=== PATIENT | female | born 1935 | race Caucasian/White ===

== ENCOUNTER 2016-08-10 09:08 | Inpatient (IN) ==
[2016-08-10] MEDS ORDERED: Ipratropium/Albuterol Neb 3 ML IH ONE ×2 (09:32→10:57)
--- NOTE | 2016-08-10 09:34 | Emergency Department Note ---
Disposition Clinical Impression: Radiation pneumonitis Lung cancer, upper lobe Qualifiers: Laterality: right Qualified Code(s): C34.11 - Malignant neoplasm of upper lobe , right bronchus or lung Dyspnea Qualifiers: Dyspnea type: unspecified Qualified Code(s): R06.00 - Dyspnea, unspecified Anemia Qualifiers: Anemia type: unspecified type Qualified Code(s): D64.9 - Anemia, unspecified Disposition: Admitted As Inpatient Condition: Good Time of Disposition: 13:03 SOB HPI - General Chief Complaint: ED Shortness of Breath/Dyspnea Stated Complaint: JOSHUA Time Seen by Provider: 08/10/16 09:24 Source: patient Mode of arrival: wheelchair Limitations: no limitations Nursing Notes Reviewed: Yes Vital Signs Reviewed: Yes - History of Present Illness 80-year-old female's past medical history of breast cancer status post right mastectomy, lung cancer status post radiation treatment, and hypertension presents to the ED for difficulty in breathing. This has been ongoing for the past 3 days. She was seen and evaluated by her oncologists today and was sent here. Patient follows up every week and reports this was the worse she has been and "becoming out of control." She is not on any home oxygen supplementation. She is currently 94% on room air. Worse with exertion but dyspneic with normal activity. She missed a productive cough. Patient follows with Dr. Keller and Dr. Edmond. Last radiation dose in February. Since then she has been battling several episodes of pneumonia. She just finished a Zpak last week. She reports being over radiated. She has also been tapering down on her steroids possibly from a pneumonitis. Also reports blood transfusion 2 weeks ago. She denies any associated fever, chest pain, nausea, vomiting. Denies any bloody stools, black tarry stools, or abdominal pain. Denies any history of blood clots. Denies any recent surgeries, hospitalizations, long distance travel. Pt Subjective Complaint: shortness of breath Onset (ago): day(s) - Related Data Home Medications Medication Instructions Recorded Confirmed Losartan Potassium [Cozaar] 50 mg PO DAILY 11/16/15 08/10/16 Amlodipine [Norvasc] 5 mg PO QPM 04/20/16 08/10/16 Omeprazole [PriLOSEC] 40 mg PO DAILY 04/20/16 08/10/16 Propranolol LA (24 HR) [Inderal LA] 80 mg PO DAILY 04/20/16 08/10/16 Ferrous Sulfate [Iron] 325 mg PO TID 08/10/16 08/10/16 Pantoprazole Sodium [Protonix] 40 mg PO DAILY 08/10/16 08/10/16 PredniSONE [Deltasone] 20 mg PO BID 08/10/16 08/10/16 Previous Rx's Medication Instructions Recorded Sucralfate [Carafate] 1 gm PO QIDAC #120 tablet 03/07/16 Albuterol Sulfate [Albuterol 2 puff IH BID PRN #1 hfa.aer.ad 07/03/16 Inhaler] Citalopram [CeleXA] 20 mg PO DAILY #30 tablet 07/10/16 Guaifenesin/Codeine Phosphate 5 - 10 ml PO QID PRN #473 ml 07/10/16 [Guaifenesin-Codeine Syrup] LORazepam [Ativan] 1 mg PO TID PRN #90 tablet 07/10/16 Azithromycin [Azithromycin 6-Tab 250 mg PO PER PKG DI #6 tab 08/01/16 Pack] Folic Acid 1 mg PO DAILY #30 tablet 08/03/16 Allergies Allergy/AdvReac Type Severity Reaction Status Date / Time bupropion [From Wellbutrin] Allergy Hives Verified 05/15/16 08:54 Hydromorphone [From Dilaudid] Allergy Hives Verified 05/15/16 08:54 Penicillins Allergy Hives Verified 05/15/16 08:54 phenytoin [From Dilantin] Allergy Unresponsiv Verified 05/15/16 08:54 e acetaminophen [From Percocet] AdvReac Hallucinati Verified 05/15/16 08:54 ng Oxycodone [From Percocet] AdvReac Hallucinati Verified 05/15/16 08:54 ng All systems ED: reviewed and negative except as stated. Constitutional: Denies: fever, chills Cardiovascular: Reports: dyspnea on exertion. Denies: chest pain, palpitations Respiratory: Reports: cough, dyspnea, sputum production Gastrointestinal: Denies: abdominal pain, nausea, vomiting, diarrhea Genitourinary: Denies: urgency, dysuria Musculoskeletal: Denies: back pain Integumentary: Denies: rash Psychiatric: Reports: anxiety Past Medical History - Past Medical History Attestation: Yes The following information was validated with the patient. Source: patient Medical history: Reports: cancer, hypertension, migraine, other Surgical history: Reports: cancer surgery, cholecystectomy, hysterectomy, orthopedic, other Psychiatric history: Reports: anxiety, depression - Social History Smoking Status: Never smoker Smokeless Tobacco Status: No Alcohol use: Reports: none Drug use: Reports: none Physical Exam - General Limitations: no limitations General appearance: alert, anxious, in distress - Head Head exam: atraumatic, normocephalic, normal inspection - Eye Eye exam: Present: normal appearance, PERRL, EOMI - ENT ENT exam: normal exam, normal oropharynx, mucous membranes moist - Neck Neck exam: Present: normal inspection, full ROM, trachea midline - Chest Chest inspection: Present: symmetric chest wall rise, other (right mastectomy) - Respiratory Respiratory exam: Present: normal lung sounds bilaterally, respiratory distress , wheezes - Expanded Respiratory Exam Location: wheezes: Left, rhonchi: Left, decreased breath sounds: Right (Right mastectomy) - Cardiovascular Cardiovascular exam: Present: regular rate, normal rhythm, normal heart sounds - Abdominal Exam Abdominal exam: Present: soft, Non-Tender, normal bowel sounds. 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 Absent: black stool, bloody stool, hemorrhoids - Extremities Exam Extremities exam: Present: normal inspection, full ROM, normal capillary refill. Absent: tenderness, pedal edema, calf tenderness - Neurological Exam Neurological exam: Present: alert, oriented X3 - Psychiatric Psychiatric exam: Present: normal affect, anxious - Skin Skin exam: Present: warm, dry, intact, normal color Course Course Narrative: 80-year-old female with a history of cancer presents with increased difficulty breathing. This is been ongoing for the past 30 days. She denies any recent fevers or chills. She did have her influenza vaccine this year. Last radiation treatment in February. States she is been battling pneumonia over the past few months and tapering down on steroids for likely pneumonitis it sounds like. She is 94% on room air. Very tachypneic with conversational dyspnea. Heart's regular rate and rhythm. She has a right mastectomy. Diminished sounds on the right with diffuse wheezing and crackles. Legs are non -edematous without any calf tenderness. [place] chest x-ray, basic labs, troponin, BMP. It has been over 6 months of active cancer she is considered low risk per [place] will check d-dimer. Last CTA one month ago was negative for PE. Duonebs ordered. - Reevaluation(s) Reevaluation #1: Hgb 7.9 dropped from 9.7. Type and screen ordered. WBC is normal. Stool hemoccult sent to lab. No gross blood on rectal exam. D-dimer came back positive >1000 will order fluid bolus and CTA for PE. Troponin negative. EKG is nonischemic. Time: 12:50 Reevaluation #2: CTA negative for PE. CXR and CTA showed some increase opacity in the right upper lobe. WBC is normal at 10. Will plan to admit. Discussed with Hospitalist on starting antibiotics, will not start at this time. Impression is dyspnea, lung cancer, history of breast cancer, anemia, respiratory distress, radiation pneumonitis. Time: 13:02 - Consultations Consultation #1: Spoke with Dr. Keller, rad oncologist, acutely worse over the past 3-4 days, now having increasing dyspnea at rest. Radiation pneumonitis likely but unsure. CXR appears worse than in past. Consideration for possible pneumonia superimposed on the pneumonitis. Off and on dual antibiotics and steroids the past several weeks. Time: 11:44 Consultation #2: Spoke to Dr. hSort, hospitalist, ok to admit for respiratory distress, anemia , JOSHUA Time: 13:01 Vital Signs Temperature 97.9 F 08/10/16 09:12 Pulse Rate 87 08/10/16 09:12 Respiratory Rate 25 08/10/16 09:12 Blood Pressure 171/78 08/10/16 09:12 O2 Sat by Pulse Oximetry 95 08/10/16 09:12 Temperature 97.5 F L 08/10/16 15:26 Pulse Rate 81 08/10/16 15:26 Respiratory Rate 20 08/10/16 15:26 Blood Pressure 148/76 08/10/16 15:26 O2 Sat by Pulse Oximetry 95 08/10/16 15:26 Oxygen Delivery Oxygen Delivery Room Air Shortness of Breath/Dyspnea - Medical Records Medical records reviewed: Yes I reviewed the patient's medical records. - Lab Data Lab results reviewed: Yes I reviewed the patient's lab results. Result diagrams: 08/10/16 09:40 08/10/16 09:40 Lab Results 08/10/16 08/10/16 08/10/16 Range/Units 09:40 09:40 09:40 WBC 10.1 (4.3-11.1) K/mcL RBC 3.14 L (3.82-4.97) M/mcL Hgb 7.9 L (11.5-15.4) g/dL Hct 25.6 L (35.3-44.9) % MCV 81.5 L (83.0-100.0) fL MCH 25.2 L (28.0-33.3) pg MCHC 30.9 L (31.6-35.5) g/dL RDW 17.6 H (11.5-14.5) % Plt Count 263 (140-400) K/mcL MPV 8.6 L (9.4-12.4) fL Immature Gran % 1.1 (0-4) % Seg Neutrophils % 88.1 % Lymphocytes % 5.5 % Monocytes % 5.0 % Eosinophils % 0.2 % Basophils % 0.1 % Neutrophils # 8.9 (1.6-8.9) K/mcL Lymphocytes # 0.6 (0.6-4.6) K/mcL Monocytes # 0.5 (0.0-1.3) K/mcL Eosinophils # 0.0 (0.0-0.6) K/mcL Basophils # 0.0 (0.0-0.2) K/mcL D-Dimer (0-500) ng/mLFEU Sodium 136 (136-145) mEq/L Potassium 4.0 (3.5-4.5) mEq/L Chloride 101 (98-109) mEq/L Carbon Dioxide 29 (19-29) mEq/L BUN 26 H (7-20) mg/dL Creatinine 0.80 (0.57-1.11) mg/dL Est GFR ( Amer) > 60 (> 60) Est GFR (Non-Af Amer) > 60 (> 60) BUN/Creatinine Ratio 33 H (6-26) Glucose 90 (70-99) mg/dL Calculated Osmolality 286 (280-300) Calcium 8.6 (8.6-10.8) mg/dL Troponin I (0-0.03) ng/mL B-Natriuretic Peptide 116 H (0-100) pg/mL Stool Occult Blood (Negative) Blood Type Antibody Screen 08/10/16 08/10/16 08/10/16 Range/Units 09:40 09:40 11:37 WBC (4.3-11.1) K/mcL RBC (3.82-4.97) M/mcL Hgb (11.5-15.4) g/dL Hct (35.3-44.9) % MCV (83.0-100.0) fL MCH (28.0-33.3) pg MCHC (31.6-35.5) g/dL RDW (11.5-14.5) % Plt Count (140-400) K/mcL MPV (9.4-12.4) fL Immature Gran % (0-4) % Seg Neutrophils % % Lymphocytes % % Monocytes % % Eosinophils % % Basophils % % Neutrophils # (1.6-8.9) K/mcL Lymphocytes # (0.6-4.6) K/mcL Monocytes # (0.0-1.3) K/mcL Eosinophils # (0.0-0.6) K/mcL Basophils # (0.0-0.2) K/mcL D-Dimer 1379 H (0-500) ng/mLFEU Sodium (136-145) mEq/L Potassium (3.5-4.5) mEq/L Chloride (98-109) mEq/L Carbon Dioxide (19-29) mEq/L BUN (7-20) mg/dL Creatinine (0.57-1.11) mg/dL Est GFR ( Amer) (> 60) Est GFR (Non-Af Amer) (> 60) BUN/Creatinine Ratio (6-26) Glucose (70-99) mg/dL Calculated Osmolality (280-300) Calcium (8.6-10.8) mg/dL Troponin I 0.01 (0-0.03) ng/mL B-Natriuretic Peptide (0-100) pg/mL Stool Occult Blood (Negative) Blood Type A POSITIVE Antibody Screen NEGATIVE 08/10/16 Range/Units 12:17 WBC (4.3-11.1) K/mcL RBC (3.82-4.97) M/mcL Hgb (11.5-15.4) g/dL Hct (35.3-44.9) % MCV (83.0-100.0) fL MCH (28.0-33.3) pg MCHC (31.6-35.5) g/dL RDW (11.5-14.5) % Plt Count (140-400) K/mcL MPV (9.4-12.4) fL Immature Gran % (0-4) % Seg Neutrophils % % Lymphocytes % % Monocytes % % Eosinophils % % Basophils % % Neutrophils # (1.6-8.9) K/mcL Lymphocytes # (0.6-4.6) K/mcL Monocytes # (0.0-1.3) K/mcL Eosinophils # (0.0-0.6) K/mcL Basophils # (0.0-0.2) K/mcL D-Dimer (0-500) ng/mLFEU Sodium (136-145) mEq/L Potassium (3.5-4.5) mEq/L Chloride (98-109) mEq/L Carbon Dioxide (19-29) mEq/L BUN (7-20) mg/dL Creatinine (0.57-1.11) mg/dL Est GFR ( Amer) (> 60) Est GFR (Non-Af Amer) (> 60) BUN/Creatinine Ratio (6-26) Glucose (70-99) mg/dL Calculated Osmolality (280-300) Calcium (8.6-10.8) mg/dL Troponin I (0-0.03) ng/mL B-Natriuretic Peptide (0-100) pg/mL Stool Occult Blood Positive A (Negative) Blood Type Antibody Screen - Radiology Data Radiology results reviewed: Yes I reviewed the patient's radiology results. Chest X-Ray 08/10/16 09:28 IMPRESSION: Slightly increased right upper lobe airspace disease over the past few weeks. D/ / David Khan MD / David Khan MD Interpreting Provider: David Khan MD Chest CTA 08/10/16 10:22 IMPRESSION: No evidence of pulmonary embolism or acute pulmonary abnormality. Decreased right pleural effusion and persistent right upper lobe infiltrate. Recommend follow-up CT scan of the chest once the patient's acute symptoms have resolved. Evaluation for residual malignancy is limited given the extensive consolidation. Recommend treating the patient with continued follow-up D/ / Oliver Arroyo MD / Oliver Arroyo MD Interpreting Provider: Oliver Arroyo MD - EKG Data EKG attestation: Yes I reviewed and interpreted this EKG. EKG results narrative: EKG performed 03/23/1930 shows normal sinus rhythm 78 bpm left axis deviation, there are no ST elevations, no T-wave inversions, intervals are within normal limits AK interval 174 QRS 103 QT QTC through 68 401. Compared to old EKG performed 04/19/2016 shows sinus tachycardia 104 bpm with left axis deviation. No acute ischemic changes. Attestation Statement - Attestation Attestation: I examined this patient and my medical decision-making was reviewed with the G[employer] DISTRIBUTION PLANT OPERATOR/PA/Advanced Practice Nurse/Resident Physician. I agree with the documented findings, disposition and treatment plan as described except to the extent set forth below. 80-year-old female presents ED with his primary. She has a history of radiation pneumonitis secondary to treatment for breast cancer. She has been having increasing dyspnea over the past several weeks. She was sent to the ED today by her oncologist because of worsening dyspnea. She has had cough has been nonproductive. He has been no fever. She has recently been on antibiotics without improvement. Denies precordial chest pain. Does complain of worsening exertional dyspnea now limited to only a few steps at a time. No vomiting or abdominal pain. Does have mild increased swelling of her lower extremities. Pleasant elderly female, slightly tachypneic. Oropharynx clear mucous membranes dry. Neck supple. Chest with diminished breath sounds in the right lung scattered wheezes in both bases. Cardiac exam regular chest wall nontender. Abdomen soft nontender. Extremities symmetric lower extremity edema. Chest x-ray with increasing opacification of the right upper lung jensen. CT of the chest reveals the same and there is possibly mucous plugging of the airways of the right upper lobe. No PE appreciated. She was given DuoNeb treatments along with Mucomyst with very minimal improvement. She will be admitted for more evaluation and potential bronchoscopy.
[2016-08-10 09:51] LABS: Basophils % 0.1 %; Eosinophils % 0.2 %; Hematocrit 25.6 % (35.3-44.9); Hemoglobin 7.9 g/dL (11.5-15.4); Immature Granulocytes % 1.1 % (0-4); Lymphocytes # 0.6 K/mcL (0.6-4.6); Lymphocytes % 5.5 %; Mean Corpuscular HGB Conc 30.9 g/dL (31.6-35.5); Mean Corpuscular Hemoglobin 25.2 pg (28.0-33.3); Mean Corpuscular Volume 81.5 fL (83.0-100.0); Mean Platelet Volume 8.6 fL (9.4-12.4); Monocytes # 0.5 K/mcL (0.0-1.3); Neutrophils # 8.9 K/mcL (1.6-8.9); Platelet Count 263 K/mcL (140-400); Red Blood Count 3.14 M/mcL (3.82-4.97); Red Cell Distribution Width 17.6 % (11.5-14.5); Segmented Neutrophils % 88.1 %
[2016-08-10 10:02] LABS: BUN/Creatinine Ratio 33 (6-26); Blood Urea Nitrogen 26 mg/dL (7-20); Calcium 8.6 mg/dL (8.6-10.8); Carbon Dioxide 29 mEq/L (19-29); Chloride 101 mEq/L (98-109); Glucose 90 mg/dL (70-99); Osmolality,Calculated 286 (280-300); Sodium 136 mEq/L (136-145); eGFR For African Americans > 60 (> 60); eGFR For Non-African Americans > 60 (> 60)
[2016-08-10] MEDS ORDERED: 0.9 % Sodium Chloride 1,000 ML IVC ONE (10:22)
[2016-08-10] MEDS ORDERED: Acetylcysteine 10% 2 ML INHSOL IH STA (10:57)
[2016-08-10] MEDS ORDERED: Naloxone 0.4 MG/ML INJ IVP PRN (13:50)
[2016-08-10] MEDS ORDERED: Ondansetron 4 MG/2 ML VIAL IVP PRN (13:50)
[2016-08-10] MEDS ORDERED: Albuterol 2.5 MG/3 ML NEBULIZER IH PRN (13:54)
[2016-08-10] MEDS: Pantoprazole 40 MG VIAL IVP SCH (14:18)
[2016-08-10] MEDS: *HR* LORazepam 1 MG TABLET PO PRN ×2 (15:20→21:51)
[2016-08-10] MEDS: Sucralfate 1 GM TABLET PO SCH ×2 (15:20→21:51)
[2016-08-10] MEDS: Ipratropium/Albuterol Neb 3 ML IH SCH ×3 (15:50→21:29)
--- NOTE | 2016-08-10 16:38 | Internal Med History&Physical ---
Date of Encounter: 08/10/16 Time of Encounter: 15:00 Assessment and Plan (1) Acute dyspnea Current visit: Yes Status: Acute Recent diagnosis of right-sided non-small cell lung cancer stage IIIa status post radiotherapy in March 2016 and right-sided radical mastectomy s/p radiotherapy in 1959. She developed radiation pneumonitis after completion of radiotherapy in March 2016 and has been taking glucocorticoids on and off since then due to shortness of breath. Last week, her shortness of breath worsened and she was prescribed a Tapered dose of glucocorticoids. Mild dry cough. No fever. No chills. No chest pain. No lower extremity edema. 08/10: CTA of the chest revealed no PE, decreased right pleural effusion, persistent right upper lobe consolidation. No mediastinal lymphadenopathy. 07/06: CTA of the chest revealed no PE, interval worsening of focal consolidation in the right upper lobe since 05/23/2016. Her persistent Could be secondary to acute flare of radiation pneumonitis +/- persistent right upper lobe lung consolidation can be concerning for fungal infection vs malignancy. less likely concern for bacterial PNA given overall clinical status (no sepsis despite having consolidation for 1 month) =/- anxiety. albuterol/atrovent nebs IV solumedrol ativan prn check fungal blood culture, fungitell. may consider pulmonary evaluation if no improvement. (2) Radiation pneumonitis Current visit: Yes Status: Acute plan as above. (3) Lung consolidation Current visit: Yes Status: Chronic plan as above. (4) Lung cancer, upper lobe Current visit: Yes Status: Chronic plan as above Qualifiers: Laterality: right Qualified Code(s): C34.11 - Malignant neoplasm of upper lobe, right bronchus or lung (5) Anxiety Current visit: Yes Status: Chronic his shortness of breath could have a component of anxiety. continue lorazepam prn. (6) Hypertension Current visit: No Status: Chronic adequate. home dose of amlodipine and losartan with parameter. Qualifiers: Hypertension type: essential hypertension Qualified Code(s): I10 - Essential (primary) hypertension Internal Medicine - H&P: HPI Chief complaint: worsening of shortness of breath for 3 days. Admitted From: Home History of present illness: Ms. Irby is a 80 year old female with past medical history of HTN, anxiety, recent diagnosis of right-sided non-small cell lung cancer stage IIIa status post radiotherapy in March 2016 and right-sided radical mastectomy s/p radiotherapy in 1959. She developed radiation pneumonitis after completion of radiotherapy in March 2016 and has been taking glucocorticoids on and off since then due to shortness of breath. Last week, her shortness of breath worsened and she was prescribed a Tapered dose of glucocorticoids. Mild dry cough. No fever. No chills. No chest pain. No lower extremity edema. No syncope. No bleeding. No abdominal pain. No change in bowel movement. No urinary complaints. No focal deficit. No headache. In ED, she received duonebs with significant improvement. Past Med Surg Social Fam HX - Past Medical History Medical history: cancer, hypertension, migraine, other Psychiatric history: anxiety, depression - Past Surgical History Surgical History: cancer surgery, cholecystectomy, hysterectomy, orthopedic, other - Social History Smoking Status: Never smoker Smokeless Tobacco Status: No Alcohol use: none Drug use: none - Family History Father Living Status: Hx Family Cardiac Disorders: Yes Mother Living Status: Hx Family Cancer: Yes Internal Medicine - H&P: Meds Losartan Potassium [Cozaar] 50 mg PO DAILY 11/16/15 [History] Sucralfate [Carafate] 1 gm PO QIDAC #120 tablet 03/07/16 [Rx] Amlodipine [Norvasc] 5 mg PO QPM 04/20/16 [History] Omeprazole [PriLOSEC] 40 mg PO DAILY 04/20/16 [History] Propranolol LA (24 HR) [Inderal LA] 80 mg PO DAILY 04/20/16 [History] Albuterol Sulfate [Albuterol Inhaler] 2 puff IH BID PRN #1 hfa.aer.ad 07/03/16 [ Rx] Citalopram [CeleXA] 20 mg PO DAILY #30 tablet 07/10/16 [Rx] Guaifenesin/Codeine Phosphate [Guaifenesin-Codeine Syrup] 5 - 10 ml PO QID PRN # 473 ml 07/10/16 [Rx] LORazepam [Ativan] 1 mg PO TID PRN #90 tablet 07/10/16 [Rx] Azithromycin [Azithromycin 6-Tab Pack] 250 mg PO PER PKG DI #6 tab 08/01/16 [Rx] Folic Acid 1 mg PO DAILY #30 tablet 08/03/16 [Rx] Ferrous Sulfate [Iron] 325 mg PO TID 08/10/16 [History] Pantoprazole Sodium [Protonix] 40 mg PO DAILY 08/10/16 [History] PredniSONE [Deltasone] 20 mg PO BID 08/10/16 [History] Allergies bupropion [From Wellbutrin] Allergy (Verified 05/15/16 08:54) Hives Hydromorphone [From Dilaudid] Allergy (Verified 05/15/16 08:54) Hives Penicillins Allergy (Verified 05/15/16 08:54) Hives phenytoin [From Dilantin] Allergy (Verified 05/15/16 08:54) Unresponsive acetaminophen [From Percocet] Adverse Reaction (Verified 05/15/16 08:54) Hallucinating Oxycodone [From Percocet] Adverse Reaction (Verified 05/15/16 08:54) Hallucinating All Systems PM: A 10-system review of systems was performed and is negative for pertinent findings except as documented above in the HPI. - Constitutional Vitals: Temp Pulse Resp BP Pulse Ox 97.5 F L 81 20 148/76 95 08/10/16 15:26 08/10/16 15:26 08/10/16 15:26 08/10/16 15:26 08/10/16 15:26 General appearance: Present: cooperative, mild distress, morbidly obese, pleasant, obese, answers questions appropriately - Eye Eye exam: Present: PERRL, sclera anicteric - Neck Neck exam general surgery: Present: supple, trachea midline. Absent: lymphadenopathy - Respiratory Respiratory exam: Present: decreased breath sounds (at right lung base), wheezes - Cardiovascular Cardiovascular exam: Present: RRR - GI/Abdominal GI/Abdominal exam: Present: normal bowel sounds, soft. Absent: distended, tenderness - Extremities Exam Extremities exam: Absent: pedal edema (varicose veins in legs) - Back Exam Back exam: Absent: CVA tenderness (L), CVA tenderness (R) - Neurological Exam Neurological exam: Present: alert, oriented X3. Absent: facial droop, speech deficit - Skin Skin exam: Absent: intact, rash Internal Med - H&P Results - Labs CBC & Chem 7: 08/10/16 09:40 08/10/16 09:40
[2016-08-10] MEDS: MethylPREDNISolone 40 MG/ML VIAL IVP SCH (17:30)
[2016-08-10] MEDS ORDERED: amLODIPine 5 MG TABLET PO SCH (18:00)
--- NOTE | 2016-08-10 18:16 | Electrocardiograph Report ---
[employer] Test Date: 2016-08-10 Pat Name: Sol Irby Department: 103 Room: 2A14 Gender: F Manager Hi: : 1935 Requested By: Thomas Nevarez Order Number: [id number] Reading MD: Renée Shahid DO Measurements Intervals [place] Rate: 78 P: 39 AL: 174 QRS: -26 QRSD: 103 T: 15 QT: 368 QTc: 401 Interpretive Statements SINUS RHYTHM BORDERLINE LEFT AXIS DEVIATION LEFT VENTRICULAR HYPERTROPHY AND ST-T CHANGE Electronically Signed On 08-10-2016 18:14:42 EST by Renée Shahid DO
[2016-08-11] MEDS: Ipratropium/Albuterol Neb 3 ML IH SCH ×7 (01:22→23:46)
[2016-08-11] MEDS: Sucralfate 1 GM TABLET PO SCH ×4 (06:29→21:09)
[2016-08-11] MEDS: MethylPREDNISolone 40 MG/ML VIAL IVP SCH ×2 (06:29→18:15)
[2016-08-11] MEDS: *HR* LORazepam 1 MG TABLET PO PRN ×3 (06:31→21:13)
[2016-08-11 06:49] LABS: Hematocrit 24.9 % (35.3-44.9); Hemoglobin 7.7 g/dL (11.5-15.4); Lymphocytes # 0.6 K/mcL (0.6-4.6); Lymphocytes % 5.1 %; Mean Corpuscular HGB Conc 30.9 g/dL (31.6-35.5); Mean Corpuscular Hemoglobin 24.9 pg (28.0-33.3); Mean Corpuscular Volume 80.6 fL (83.0-100.0); Mean Platelet Volume 8.5 fL (9.4-12.4); Monocytes # 0.5 K/mcL (0.0-1.3); Monocytes % 4.6 %; Neutrophils # 10.1 K/mcL (1.6-8.9); Platelet Count 256 K/mcL (140-400); Red Blood Count 3.09 M/mcL (3.82-4.97); Red Cell Distribution Width 18.1 % (11.5-14.5); Segmented Neutrophils % 89.3 %
[2016-08-11 07:02] LABS: BUN/Creatinine Ratio 27 (6-26); Blood Urea Nitrogen 21 mg/dL (7-20); Calcium 8.5 mg/dL (8.6-10.8); Carbon Dioxide 27 mEq/L (19-29); Chloride 102 mEq/L (98-109); Glucose 113 mg/dL (70-99); Magnesium 2.1 mg/dL (1.6-2.6); Osmolality,Calculated 286 (280-300); Potassium 4.4 mEq/L (3.5-4.5); Sodium 136 mEq/L (136-145); eGFR For African Americans > 60 (> 60); eGFR For Non-African Americans > 60 (> 60)
[2016-08-11 07:06] LABS: Albumin 2.6 g/dL (3.5-5.0); Bilirubin,Direct 0.2 mg/dL (0.0-0.5); Bilirubin,Indirect 0.4 mg/dL (0.0-1.2); Bilirubin,Total 0.6 mg/dL (0.2-1.2); Globulin 2.5 g/dL (2.4-3.5); Total Protein 5.1 g/dL (6.0-8.3)
[2016-08-11] MEDS: Pantoprazole 40 MG VIAL IVP SCH (07:50)
[2016-08-11] MEDS: Folic Acid 1 MG TABLET PO SCH (07:50)
[2016-08-11] MEDS: Propranolol LA (24 HR) 80 MG CAP.SA.24H PO SCH (07:53)
--- NOTE | 2016-08-11 10:24 | Internal Med Progress Note ---
Date of Encounter: 08/11/16 Time of Encounter: 09:25 - Assessment and plan (1) Acute dyspnea Current Visit: Yes Status: Acute Assessment and plan: Improving. Responding well to intravenous steroids. Due to radiation pneumonitis and lung cancer. Continue IV steroids today. If patient continues to improve, will plan on discharge tomorrow on oral steroid taper. Patient will need to be evaluated for home oxygen prior to discharge. (2) Radiation pneumonitis Current Visit: Yes Status: Acute Assessment and plan: Continue IV steroids. Responding well. (3) Anxiety Current Visit: Yes Status: Chronic Assessment and plan: On Celexa. Will continue (4) Lung cancer, upper lobe Current Visit: Yes Status: Chronic Assessment and plan: Follow-up outpatient with oncology and pulmonology. CT scan shows persistent right upper lobe consolidation. No clinical signs of pneumonia Qualifiers: Laterality: right Qualified Code(s): C34.11 - Malignant neoplasm of upper lobe, right bronchus or lung (5) Hypertension Current Visit: No Status: Chronic Assessment and plan: Blood pressure is elevated. Continue losartan. Will increase amlodipine to 10 mg by mouth daily. Qualifiers: Hypertension type: essential hypertension Qualified Code(s): I10 - Essential (primary) hypertension - Subjective Interval history: Patient is feeling better today. She is breathing better. Denies any chest pain. No wheezing. No nausea or vomiting. On 2 L O2 supplementation. - Constitutional Vitals: Temp Pulse Resp BP Pulse Ox 98.1 F 83 18 142/84 97 08/11/16 06:49 08/11/16 06:49 08/11/16 07:48 08/11/16 06:49 08/11/16 08:02 General appearance: Present: cooperative, mild distress, morbidly obese, pleasant, obese, answers questions appropriately - Neck Neck exam general surgery: Present: supple, trachea midline. Absent: lymphadenopathy - Respiratory Respiratory exam: Present: decreased breath sounds (Right lung.), CTAB. Absent : accessory muscle use, rales, rhonchi, wheezes - Cardiovascular Cardiovascular exam: Present: RRR, +S1, +S2. Absent: diastolic murmur, gallop, rubs, systolic murmur - GI/Abdominal GI/Abdominal exam: Present: normal bowel sounds, soft, no peritoneal signs. Absent: distended, tenderness - Extremities Exam Extremities exam: Present: warm, radial pulses palpable and symetrical. Absent : calf tenderness, cyanotic, pedal edema Internal Medicine: Result - Labs CBC & Chem 7: 08/11/16 06:41 08/11/16 06:41 Labs: Short CBC 08/11/16 Range/Units 06:41 WBC 11.3 H (4.3-11.1) K/mcL Hgb 7.7 L (11.5-15.4) g/dL Hct 24.9 L (35.3-44.9) % Plt Count 256 (140-400) K/mcL Neutrophils # 10.1 H (1.6-8.9) K/mcL BMP 08/11/16 06:41 Sodium 136 Potassium 4.4 Chloride 102 Carbon Dioxide 27 BUN 21 H Creatinine 0.78 Glucose 113 H Calcium 8.5 L Liver Function 08/11/16 Range/Units 06:41 Total Bilirubin 0.6 (0.2-1.2) mg/dL Direct Bilirubin 0.2 (0.0-0.5) mg/dL AST 6 (5-34) Units/L ALT 9 (0-55) Units/L Alkaline Phosphatase 34 L (38-126) Units/L Albumin 2.6 L (3.5-5.0) g/dL - ABG Interpretation ABG results: PT/INR, D-dimer D-Dimer 1379 ng/mLFEU (0-500) H 08/10/16 09:40 Consult Discharge Plan - Plan Referrals: Paulo Kim MD [Primary Care Provider] - - Attending Attestation This document has been at least partially created by [employer] recognition technology by Dr. Rosas. Errors in grammar, wording or other phrases may exist. If errors are found after the documentation is signed, they will be addressed individually in the addendum section of this document when appropriate.
[2016-08-11] MEDS: amLODIPine 5 MG TABLET PO SCH (18:14)
[2016-08-11] MEDS ORDERED: Vancomycin 1,500 MG in D5% in Water 250 ML IVPB SCH (21:00)
[2016-08-11] MEDS: Vancomycin 1,750 MG in D5% in Water 500 ML IVPB SCH (22:48)
[2016-08-12] MEDS: Aztreonam 2,000 MG in D5% in Water (Mini-Bag+) 100 ML IVPB SCH ×3 (00:55→19:57)
[2016-08-12] MEDS: MethylPREDNISolone 40 MG/ML VIAL IVP SCH ×3 (00:55→19:56)
[2016-08-12] MEDS: Ipratropium/Albuterol Neb 3 ML IH SCH ×5 (05:43→20:13)
[2016-08-12 06:12] LABS: Basophils % 0.1 %; Hematocrit 28.1 % (35.3-44.9); Hemoglobin 8.5 g/dL (11.5-15.4); Immature Granulocytes % 1.7 % (0-4); Lymphocytes # 0.2 K/mcL (0.6-4.6); Lymphocytes % 2.5 %; Mean Corpuscular HGB Conc 30.2 g/dL (31.6-35.5); Mean Corpuscular Hemoglobin 24.9 pg (28.0-33.3); Mean Corpuscular Volume 82.2 fL (83.0-100.0); Mean Platelet Volume 10.2 fL (9.4-12.4); Monocytes # 0.2 K/mcL (0.0-1.3); Monocytes % 1.6 %; Neutrophils # 9.1 K/mcL (1.6-8.9); Nucleated Red Blood Cells 0.2 /100 WBC (0); Platelet Count 252 K/mcL (140-400); Red Blood Count 3.42 M/mcL (3.82-4.97); Red Cell Distribution Width 18.1 % (11.5-14.5); Segmented Neutrophils % 94.1 %
[2016-08-12 06:31] LABS: BUN/Creatinine Ratio 30 (6-26); Blood Urea Nitrogen 24 mg/dL (7-20); Calcium 8.7 mg/dL (8.6-10.8); Carbon Dioxide 23 mEq/L (19-29); Chloride 101 mEq/L (98-109); Glucose 134 mg/dL (70-99); Osmolality,Calculated 282 (280-300); Potassium 4.8 mEq/L (3.5-4.5); Sodium 133 mEq/L (136-145); eGFR For African Americans > 60 (> 60); eGFR For Non-African Americans > 60 (> 60)
--- NOTE | 2016-08-12 07:04 | Event Note ---
Date of Encounter: 08/11/16 Time of Encounter: 21:00 I was called by the RN to evaluate the ptient for tchypnea. The patient reports mild to moderate dyspnea which has not improved during her hospitalization, she has associated cough productive of sputum but she cannot clear her airway. She is sitting up in bed in no acute distress appears to be tachypneic and mildly short of breath. Heart is regular S1-S2 lungs are coarse bilateral breath sounds and expiratory wheezes as well as rhonchi. I reviewed the patient's CT scan of the chest which reveals a small right pleural effusion and right upper lobe scarring and pulmonary infiltrate concerning for pneumonia. Plan: Suspected right upper lobe pneumonia: We will treat this as healthcare associated pneumonia. I will send a blood culture, procalcitonin level, we will initiate broad-spectrum IV antibiotics with aztreonam and vancomycin. I reviewed patient's medical record which includes the result of a bronchoscopy with BAL done 6 months ago found no pathogens. I recommend consideration to pulmonary consult for possible need for repeat bronchoscopy given her recurrent pneumonia.
[2016-08-12] MEDS: Pantoprazole 40 MG VIAL IVP SCH (07:47)
[2016-08-12] MEDS: Propranolol LA (24 HR) 80 MG CAP.SA.24H PO SCH (07:47)
[2016-08-12] MEDS: *HR* LORazepam 1 MG TABLET PO PRN ×3 (07:47→21:19)
[2016-08-12] MEDS: Folic Acid 1 MG TABLET PO SCH (07:47)
[2016-08-12] MEDS: Sucralfate 1 GM TABLET PO SCH ×4 (07:47→21:19)
--- NOTE | 2016-08-12 11:30 | Pulmonology Consult Note ---
Date of Encounter: 08/12/16 Time of Encounter: 10:30 Assessment and Plan (1) Radiation pneumonitis Current Visit: Yes Status: Chronic Patient has strong history of having radiation pneumonitis and she does improve with steroid. Patient is receiving systemic steroids at this time. However, other etiologies such as superimposed infection or even recurrent hair non- small cell cancer remain in the differential diagnosis. I discussed with her in the presence of the nurses about bronchoscopy mainly for diagnostic reasons and explained to her old risks, alternatives, benefits of the procedure and initially she was reluctant but then she agreed an understanding all the risks associated with the procedure. We will keep patient's nothing by mouth postmidnight and plan for bronchoscopy tomorrow, unless she changes her mind. This was discussed with the primary team. Thank you for the consultation (2) Pneumonia Current Visit: No Status: Acute Patient is on appropriate antibiotics and treating care as of healthcare associated pneumonia is reasonable. Hopefully bronchoscopy will help to de- escalate antibiotics rather quickly. Qualifiers: Pneumonia type: due to unspecified organism Laterality: right Lung location: upper lobe of lung Qualified Code(s): J18.9 - Pneumonia, unspecified organism (3) History of lung cancer in adulthood Current Visit: Yes Status: Chronic Patient has been treated with radiotherapy and I am hoping this is not recurrent of her previous cancer, again bronchoscopy could help to answer that question. 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 She remembered that she had bronchoscopy done maybe about 2 years ago but she does not remember any major complications, however she does not want it and unless and is necessary. She also has right- sided radical mastectomy status post radiotherapy in the 60s. Patient had developed radiation pneumonitis after she completed her treatment in March 2016 and she has been on steroids on and off for shortness of breath. Patient felt more short of breat Past Med Surg Social Fam HX - Past Medical History Medical history: cancer, hypertension, migraine, other Psychiatric history: anxiety, depression - Past Surgical History Surgical History: cancer surgery, cholecystectomy, hysterectomy, orthopedic, other - Social History Smoking Status: Never smoker Smokeless Tobacco Status: No Alcohol use: none Drug use: none - Family History Father Living Status: Hx Family Cardiac Disorders: Yes Mother Living Status: Hx Family Cancer: Yes Medications and Allergies Losartan Potassium [Cozaar] 50 mg PO DAILY 11/16/15 [History] Sucralfate [Carafate] 1 gm PO QIDAC #120 tablet 03/07/16 [Rx] Amlodipine [Norvasc] 5 mg PO QPM 04/20/16 [History] Omeprazole [PriLOSEC] 40 mg PO DAILY 04/20/16 [History] Propranolol LA (24 HR) [Inderal LA] 80 mg PO DAILY 04/20/16 [History] Albuterol Sulfate [Albuterol Inhaler] 2 puff IH BID PRN #1 hfa.aer.ad 07/03/16 [ Rx] Citalopram [CeleXA] 20 mg PO DAILY #30 tablet 07/10/16 [Rx] Guaifenesin/Codeine Phosphate [Guaifenesin-Codeine Syrup] 5 - 10 ml PO QID PRN # 473 ml 07/10/16 [Rx] LORazepam [Ativan] 1 mg PO TID PRN #90 tablet 07/10/16 [Rx] Azithromycin [Azithromycin 6-Tab Pack] 250 mg PO PER PKG DI #6 tab 08/01/16 [Rx] Folic Acid 1 mg PO DAILY #30 tablet 08/03/16 [Rx] Ferrous Sulfate [Iron] 325 mg PO TID 08/10/16 [History] Pantoprazole Sodium [Protonix] 40 mg PO DAILY 08/10/16 [History] PredniSONE [Deltasone] 20 mg PO BID 08/10/16 [History] Allergies bupropion [From Wellbutrin] Allergy (Verified 05/15/16 08:54) Hives Hydromorphone [From Dilaudid] Allergy (Verified 05/15/16 08:54) Hives Penicillins Allergy (Verified 05/15/16 08:54) Hives phenytoin [From Dilantin] Allergy (Verified 05/15/16 08:54) Unresponsive acetaminophen [From Percocet] Adverse Reaction (Verified 05/15/16 08:54) Hallucinating Oxycodone [From Percocet] Adverse Reaction (Verified 05/15/16 08:54) Hallucinating All Systems: A 10-system review of systems was performed and is negative for pertinent findings except as documented above in the HPI. Physical Examination Vital Signs: Please refer to nurses documentation for last set of vital signs. Her SPO2 in the 90s % on NC General appearance: no acute distress Eyes: nonicteric ENT: oropharynx moist Mallampati (class): 3 Neck: supple, no lymphadenopathy Effort: normal Inspection: other (Right side has abnormality from previous surgery and scars) Auscultation: bilateral: rhonchi Percussion: bilateral: not dull Cardiovascular: regular rate and rhythm Gastrointestinal: soft, non-distended Extremities: no cyanosis, no edema normal mental status, non-focal exam mood appropriate Results - Laboratory Findings CBC and BMP: 08/12/16 05:06 08/12/16 05:06 PT/INR, D-dimer D-Dimer 1379 ng/mLFEU (0-500) H 08/10/16 09:40 Abnormal lab findings: Abnormal lab results RBC 3.42 M/mcL (3.82-4.97) L 08/12/16 05:06 Hgb 8.5 g/dL (11.5-15.4) L 08/12/16 05:06 Hct 28.1 % (35.3-44.9) L 08/12/16 05:06 MCV 82.2 fL (83.0-100.0) L 08/12/16 05:06 MCH 24.9 pg (28.0-33.3) L 08/12/16 05:06 MCHC 30.2 g/dL (31.6-35.5) L 08/12/16 05:06 RDW 18.1 % (11.5-14.5) H 08/12/16 05:06 Neutrophils # 9.1 K/mcL (1.6-8.9) H 08/12/16 05:06 Lymphocytes # 0.2 K/mcL (0.6-4.6) L 08/12/16 05:06 Nucleated RBCs/100 WBC 0.2 /100 WBC (0) H 08/12/16 05:06 D-Dimer 1379 ng/mLFEU (0-500) H 08/10/16 09:40 Sodium 133 mEq/L (136-145) L 08/12/16 05:06 Potassium 4.8 mEq/L (3.5-4.5) H 08/12/16 05:06 BUN 24 mg/dL (7-20) H 08/12/16 05:06 BUN/Creatinine Ratio 30 (6-26) H 08/12/16 05:06 Glucose 134 mg/dL (70-99) H 08/12/16 05:06 Alkaline Phosphatase 34 Units/L (38-126) L 08/11/16 06:41 B-Natriuretic Peptide 116 pg/mL (0-100) H 08/10/16 09:40 Serum Total Protein 5.1 g/dL (6.0-8.3) L 08/11/16 06:41 Albumin 2.6 g/dL (3.5-5.0) L 08/11/16 06:41 Albumin/Globulin Ratio 1.0 (1.1-2.2) L 08/11/16 06:41 Stool Occult Blood Positive (Negative) A 08/10/16 12:17 - Diagnostic Findings CT scan - chest: report reviewed, image reviewed Consult Discharge Plan - Plan Referrals: Paulo Kim MD [Primary Care Provider] - (WEB REQUESTR SENT ON 08/11/16 )
[2016-08-12] MEDS: *HR* Heparin 5,000 UNIT/ML VIAL SQ SCH ×2 (12:17→19:03)
--- NOTE | 2016-08-12 13:24 | Internal Med Progress Note ---
Date of Encounter: 08/12/16 Time of Encounter: 11:00 - Assessment and plan (1) Radiation pneumonitis Current Visit: Yes Status: Chronic Assessment and plan: Continue IV steroids. Pulmonology has been consulted. We will follow the recommendations (2) Acute dyspnea Current Visit: Yes Status: Acute Assessment and plan: Due to radiation pneumonitis. Continue duo nebs, steroids, O2 supplementation (3) Anxiety Current Visit: Yes Status: Chronic Assessment and plan: On citalopram (4) Lung cancer, upper lobe Current Visit: Yes Status: Chronic Assessment and plan: Follow-up with oncology and pulmonology as outpatient Qualifiers: Laterality: right Qualified Code(s): C34.11 - Malignant neoplasm of upper lobe, right bronchus or lung (5) Hypertension Current Visit: No Status: Chronic Assessment and plan: Blood pressure is well controlled Qualifiers: Hypertension type: essential hypertension Qualified Code(s): I10 - Essential (primary) hypertension (6) Pneumonia Current Visit: Yes Status: Acute Assessment and plan: Given patient's worsening respiratory status overnight, patient has been started on broad-spectrum antibiotics. She will undergo bronchoscopy tomorrow per pulmonology recommendations. Will follow culture results and de-escalate antibiotics accordingly. Qualifiers: Pneumonia type: due to unspecified organism Laterality: right Lung location: upper lobe of lung Qualified Code(s): J18.9 - Pneumonia, unspecified organism - Subjective Interval history: Patient developed respiratory distress overnight and was started on antibiotics. Steroid dosage was increased. She has improved since then and is doing better now. No chest pain reported. No nausea or vomiting. - Constitutional Vitals: Temp Pulse Resp BP Pulse Ox 97.8 F 88 18 126/73 98 08/12/16 06:53 08/12/16 06:53 08/12/16 08:38 08/12/16 06:53 08/12/16 08:38 General appearance: Present: cooperative, mild distress, morbidly obese, pleasant, obese, answers questions appropriately - Neck Neck exam general surgery: Present: supple, trachea midline. Absent: lymphadenopathy - Respiratory Respiratory exam: Present: decreased breath sounds (In the right lung), CTAB. Absent: accessory muscle use, rales, rhonchi, wheezes - Cardiovascular Cardiovascular exam: Present: RRR, +S1, +S2. Absent: diastolic murmur, gallop, rubs, systolic murmur - GI/Abdominal GI/Abdominal exam: Present: normal bowel sounds, soft, no peritoneal signs. Absent: distended, tenderness - Extremities Exam Extremities exam: Present: warm, radial pulses palpable and symetrical. Absent : calf tenderness, cyanotic, pedal edema - Neurological Exam Neurological exam: Present: alert, oriented X3, no focal deficits. Absent: facial droop, speech deficit Internal Medicine: Result - Labs CBC & Chem 7: 08/12/16 05:06 08/12/16 05:06 - ABG Interpretation ABG results: PT/INR, D-dimer D-Dimer 1379 ng/mLFEU (0-500) H 08/10/16 09:40 Consult Discharge Plan - Plan Referrals: Paulo Kim MD [Primary Care Provider] - (WEB REQUESTR SENT ON 08/11/16 ) - Attending Attestation This document has been at least partially created by [employer] recognition technology by Dr. Rosas. Errors in grammar, wording or other phrases may exist. If errors are found after the documentation is signed, they will be addressed individually in the addendum section of this document when appropriate.
[2016-08-12] MEDS: amLODIPine 5 MG TABLET PO SCH (19:04)
[2016-08-12] MEDS: Vancomycin 1,750 MG in D5% in Water 500 ML IVPB SCH (22:57)
[2016-08-13] MEDS: MethylPREDNISolone 40 MG/ML VIAL IVP SCH ×3 (00:44→15:20)
[2016-08-13] MEDS: Aztreonam 2,000 MG in D5% in Water (Mini-Bag+) 100 ML IVPB SCH ×3 (00:47→15:20)
[2016-08-13] MEDS: Ipratropium/Albuterol Neb 3 ML IH SCH ×8 (03:56→23:46)
[2016-08-13 05:31] LABS: Prothrombin Time 10.3 Seconds (9.4-12.1)
[2016-08-13 05:33] LABS: Basophils % 0.1 %; Hematocrit 23.9 % (35.3-44.9); Hemoglobin 7.4 g/dL (11.5-15.4); Immature Granulocytes % 1.2 % (0-4); Lymphocytes # 0.3 K/mcL (0.6-4.6); Lymphocytes % 2.3 %; Mean Corpuscular Hemoglobin 25.3 pg (28.0-33.3); Mean Corpuscular Volume 81.8 fL (83.0-100.0); Mean Platelet Volume 9.1 fL (9.4-12.4); Monocytes # 0.3 K/mcL (0.0-1.3); Monocytes % 2.1 %; Neutrophils # 11.4 K/mcL (1.6-8.9); Platelet Count 280 K/mcL (140-400); Red Blood Count 2.92 M/mcL (3.82-4.97); Red Cell Distribution Width 18.1 % (11.5-14.5); Segmented Neutrophils % 94.3 %
[2016-08-13 05:46] LABS: BUN/Creatinine Ratio 46 (6-26); Calcium 8.2 mg/dL (8.6-10.8); Carbon Dioxide 25 mEq/L (19-29); Chloride 101 mEq/L (98-109); Glucose 152 mg/dL (70-99); Osmolality,Calculated 285 (280-300); Potassium 4.4 mEq/L (3.5-4.5); Sodium 132 mEq/L (136-145); eGFR For African Americans > 60 (> 60); eGFR For Non-African Americans > 60 (> 60)
[2016-08-13 05:55] LABS: Blood Urea Nitrogen 36 mg/dL (7-20)
[2016-08-13] MEDS: *HR* Heparin 5,000 UNIT/ML VIAL SQ SCH ×2 (06:18→16:56)
[2016-08-13] MEDS: Sucralfate 1 GM TABLET PO SCH ×4 (07:51→21:12)
[2016-08-13] MEDS: Folic Acid 1 MG TABLET PO SCH (07:51)
[2016-08-13] MEDS: Pantoprazole 40 MG VIAL IVP SCH (07:51)
--- NOTE | 2016-08-13 09:41 | Pulmonology Progress Note ---
Date of Encounter: 08/13/16 Time of Encounter: 09:39 Assessment and Plan (1) Lung consolidation Current Visit: Yes Status: Chronic Lung consolidation in this patient with lung cancer may be due to established malignancy as opposed to pneumonia. Further evaluation, bronchoscopy will be performed. There is no evidence to suggest infectious pathogen then antibiotics can be discontinued. Reviewed the situation with the patient who has agreed to proceed. She does have tenuous respiratory status and hopefully, the procedure will not precipitate the need for intubation. The patient does have underlying COPD. Treatment of the same, continue bronchodilator therapy and supplemental oxygen. I also agree with use of steroids for treatment of COPD. Code(s): J18.1 - Lobar pneumonia, unspecified organism SNOMED Code(s): 77622896 Subjective Principal diagnosis: Right upper lobe atelectasis Interval history: The patient relates history of mild cough chest congestion and sputum production. This patient has a history of non-small cell lung cancer was received prior radiation therapy and follow-up imaging has revealed persistent right upper lobe infiltrate and possible volume loss. Currently, the patient notes absence of purulent sputum production hemoptysis or chest pain. Objective PUL Vital signs: Last Vital Signs Temp 97.8 F 08/13/16 07:35 Pulse 99 08/13/16 07:35 Resp 22 08/13/16 08:04 BP 112/71 08/13/16 07:35 Pulse Ox 95 08/13/16 08:04 General appearance: no acute distress Eyes: nonicteric ENT: oropharynx moist Auscultation: right: diminished breath sounds, bilateral: rhonchi Cardiovascular: regular rate and rhythm Gastrointestinal: normoactive bowel sounds Integumentary: normal Extremities: no cyanosis Musculoskeletal: no deformities normal mental status, non-focal exam Results - Laboratory Findings CBC and BMP: 08/13/16 05:00 08/13/16 05:00 PT/INR, D-dimer PT 10.3 Seconds (9.4-12.1) 08/13/16 05:00 D-Dimer 1379 ng/mLFEU (0-500) H 08/10/16 09:40 Abnormal lab findings: Abnormal lab results WBC 12.1 K/mcL (4.3-11.1) H 08/13/16 05:00 RBC 2.92 M/mcL (3.82-4.97) L 08/13/16 05:00 Hgb 7.4 g/dL (11.5-15.4) L 08/13/16 05:00 Hct 23.9 % (35.3-44.9) L 08/13/16 05:00 MCV 81.8 fL (83.0-100.0) L 08/13/16 05:00 MCH 25.3 pg (28.0-33.3) L 08/13/16 05:00 MCHC 31.0 g/dL (31.6-35.5) L 08/13/16 05:00 RDW 18.1 % (11.5-14.5) H 08/13/16 05:00 MPV 9.1 fL (9.4-12.4) L 08/13/16 05:00 Neutrophils # 11.4 K/mcL (1.6-8.9) H 08/13/16 05:00 Lymphocytes # 0.3 K/mcL (0.6-4.6) L 08/13/16 05:00 Nucleated RBCs/100 WBC 0.2 /100 WBC (0) H 08/12/16 05:06 D-Dimer 1379 ng/mLFEU (0-500) H 08/10/16 09:40 Sodium 132 mEq/L (136-145) L 08/13/16 05:00 BUN 36 mg/dL (7-20) H D 08/13/16 05:00 BUN/Creatinine Ratio 46 (6-26) H 08/13/16 05:00 Glucose 152 mg/dL (70-99) H 08/13/16 05:00 Calcium 8.2 mg/dL (8.6-10.8) L 08/13/16 05:00 Alkaline Phosphatase 34 Units/L (38-126) L 08/11/16 06:41 B-Natriuretic Peptide 116 pg/mL (0-100) H 08/10/16 09:40 Serum Total Protein 5.1 g/dL (6.0-8.3) L 08/11/16 06:41 Albumin 2.6 g/dL (3.5-5.0) L 08/11/16 06:41 Albumin/Globulin Ratio 1.0 (1.1-2.2) L 08/11/16 06:41 Stool Occult Blood Positive (Negative) A 08/10/16 12:17 - Diagnostic Findings Chest x-ray: image reviewed CT scan - chest: image reviewed - Clinical Findings Intake & Output: Intake & Output 08/12/16 08/13/16 08/13/16 23:59 07:59 15:59 Intake Total 950 / 950 600 / 600 50 / 50 Output Total 500 / 500 0 / 0 Balance 450 / 450 600 / 600 50 / 50 Weight 98.43 kg Consult Discharge Plan - Plan Referrals: Paulo Kim MD [Primary Care Provider] - (WEB REQUESTR SENT ON 08/11/16 )
[2016-08-13] MEDS ORDERED: Tetracaine/Benzocaine/Butamben 200MG/SPRAY (100SPY/BOT) MM ONE (10:40)
[2016-08-13] MEDS ORDERED: *HR* Midazolam HCl 5 MG/5 ML VIAL IVP PRN (10:40)
[2016-08-13] MEDS ORDERED: Simethicone 40 MG/0.6 ML MLS IR ONE (10:40)
[2016-08-13] MEDS ORDERED: Lidocaine Viscous Oral Soln 15 ML SOLUTION MM ONE (10:40)
[2016-08-13] MEDS ORDERED: *HR* EPINEPHrine 1 MG/10 ML SYRINGE INTRATRACH PRN (10:40)
[2016-08-13] MEDS ORDERED: 0.9 % Sodium Chloride 1,000 ML IVC SCH (10:45)
[2016-08-13] MEDS ORDERED: *HR* FentaNYL (PF) 100 MCG/2 ML VIAL ONE (10:59)
[2016-08-13] MEDS ORDERED: *HR* Midazolam HCl 5 MG/5 ML VIAL IVP ONE (10:59)
[2016-08-13] MEDS ORDERED: Lidocaine Viscous Oral Soln 15 ML SOLUTION ONE (11:00)
[2016-08-13] MEDS: *HR* FentaNYL (PF) 100 MCG/2 ML VIAL IVP PRN ×2 (11:25→11:27)
[2016-08-13] MEDS ORDERED: Ipratropium/Albuterol Neb 3 ML IH ONE (11:32)
[2016-08-13] MEDS ORDERED: Ipratropium/Albuterol Neb 3 ML ONE (11:33)
--- NOTE | 2016-08-13 11:58 | Internal Med Progress Note ---
Date of Encounter: 08/13/16 Time of Encounter: 10:30 - Assessment and plan (1) Radiation pneumonitis Current Visit: Yes Status: Chronic Assessment and plan: On IV steroids. Bronchoscopy to be done later today pending. Will follow on results. Continue O2 supplementation. Clinically getting better. (2) Acute dyspnea Current Visit: Yes Status: Acute Assessment and plan: Due to radiation pneumonitis. Also possible superimposed pneumonia. On IV antibiotics. We will follow culture results and results of the bronchoscopy. (3) Anxiety Current Visit: Yes Status: Chronic Assessment and plan: On citalopram and Ativan as needed (4) Lung cancer, upper lobe Current Visit: Yes Status: Chronic Assessment and plan: Pulmonology following. Bronchoscopy today Qualifiers: Laterality: right Qualified Code(s): C34.11 - Malignant neoplasm of upper lobe, right bronchus or lung (5) Hypertension Current Visit: Yes Status: Chronic Assessment and plan: Blood pressure remains elevated. Amlodipine dosage was increased. No other changes at this time. Continue to monitor blood pressure. Qualifiers: Hypertension type: essential hypertension Qualified Code(s): I10 - Essential (primary) hypertension (6) Pneumonia Current Visit: Yes Status: Acute Assessment and plan: On broad-spectrum antibiotics. We will follow culture results. Qualifiers: Pneumonia type: due to unspecified organism Laterality: right Lung location: upper lobe of lung Qualified Code(s): J18.9 - Pneumonia, unspecified organism (7) Anemia Current Visit: Yes Status: Acute Assessment and plan: Acute on chronic. Patient having hemoglobin of 7.4 today. Stool for occult blood was positive. We will consult GI for further evaluation. Also check iron , folic acid and B12 levels. Qualifiers: Anemia type: other cause Other causes of anemia: other cause, not classified Qualified Code(s): D64.89 - Other specified anemias - Subjective Interval history: Patient is doing better today. Is anxious but appears comfortable. Continues to require O2 supplementation. Awaiting bronchoscopy that is to be done later today. - Constitutional Vitals: Temp Pulse Resp BP Pulse Ox 97.7 F 85 18 148/68 98 08/13/16 10:46 08/13/16 11:30 08/13/16 11:30 08/13/16 11:30 08/13/16 11:30 General appearance: Present: cooperative, mild distress, A&O X 3, morbidly obese , pleasant, obese, answers questions appropriately - Respiratory Respiratory exam: Present: decreased breath sounds (The right lung especially over the upper lobe). Absent: accessory muscle use, rales, rhonchi, wheezes - Cardiovascular Cardiovascular exam: Present: RRR, +S1, +S2. Absent: diastolic murmur, gallop, rubs, systolic murmur - Extremities Exam Extremities exam: Present: warm, radial pulses palpable and symetrical. Absent : calf tenderness, cyanotic, pedal edema - Neurological Exam Neurological exam: Present: alert, no focal deficits, strengths equal and symetr throughout. Absent: facial droop, speech deficit - Psychiatric Psychiatric exam: Present: anxious Internal Medicine: Result - Labs CBC & Chem 7: 08/13/16 05:00 08/13/16 05:00 Labs: Short CBC 08/13/16 Range/Units 05:00 WBC 12.1 H (4.3-11.1) K/mcL Hgb 7.4 L (11.5-15.4) g/dL Hct 23.9 L (35.3-44.9) % Plt Count 280 (140-400) K/mcL Neutrophils # 11.4 H (1.6-8.9) K/mcL BMP 08/13/16 05:00 Sodium 132 L Potassium 4.4 Chloride 101 Carbon Dioxide 25 BUN 36 H D Creatinine 0.78 Glucose 152 H Calcium 8.2 L - ABG Interpretation ABG results: PT/INR, D-dimer PT 10.3 Seconds (9.4-12.1) 08/13/16 05:00 D-Dimer 1379 ng/mLFEU (0-500) H 08/10/16 09:40 Consult Discharge Plan - Plan Referrals: Paulo Kim MD [Primary Care Provider] - (WEB REQUESTR SENT ON 08/11/16 ) - Attending Attestation This document has been at least partially created by [employer] recognition technology by Dr. Rosas. Errors in grammar, wording or other phrases may exist. If errors are found after the documentation is signed, they will be addressed individually in the addendum section of this document when appropriate.
[2016-08-13] MEDS: Propranolol LA (24 HR) 80 MG CAP.SA.24H PO SCH (13:36)
[2016-08-13] MEDS: *HR* LORazepam 1 MG TABLET PO PRN ×2 (15:30→21:12)
[2016-08-13] MEDS: amLODIPine 5 MG TABLET PO SCH (17:07)
[2016-08-13] MEDS: Vancomycin 1,750 MG in D5% in Water 500 ML IVPB SCH (21:12)
[2016-08-14] MEDS: Aztreonam 2,000 MG in D5% in Water (Mini-Bag+) 100 ML IVPB SCH ×4 (00:34→23:35)
[2016-08-14] MEDS: MethylPREDNISolone 40 MG/ML VIAL IVP SCH ×2 (00:34→08:07)
[2016-08-14] MEDS: Ipratropium/Albuterol Neb 3 ML IH SCH ×6 (03:53→23:41)
[2016-08-14] MEDS: *HR* Heparin 5,000 UNIT/ML VIAL SQ SCH (05:33)
[2016-08-14 05:53] LABS: Basophils % 0.1 %; Hematocrit 26.8 % (35.3-44.9); Hemoglobin 8.3 g/dL (11.5-15.4); Immature Granulocytes % 1.3 % (0-4); Lymphocytes # 0.2 K/mcL (0.6-4.6); Lymphocytes % 1.5 %; Mean Corpuscular Hemoglobin 25.4 pg (28.0-33.3); Mean Platelet Volume 9.1 fL (9.4-12.4); Monocytes # 0.4 K/mcL (0.0-1.3); Monocytes % 2.5 %; Neutrophils # 13.5 K/mcL (1.6-8.9); Platelet Count 318 K/mcL (140-400); Red Blood Count 3.27 M/mcL (3.82-4.97); Red Cell Distribution Width 18.8 % (11.5-14.5); Segmented Neutrophils % 94.6 %
[2016-08-14 05:57] LABS: % Iron Saturation 9 % (15-50); Iron 35 mcg/dL (50-170); Transferrin 283 mg/dL (180-382)
[2016-08-14 06:19] LABS: Ferritin 45 ng/ml (5-204)
[2016-08-14 06:32] LABS: Folate 7.4 ng/mL (7.0-31.4)
[2016-08-14] MEDS: Pantoprazole 40 MG VIAL IVP SCH (08:06)
[2016-08-14] MEDS: Sucralfate 1 GM TABLET PO SCH ×4 (08:09→21:39)
[2016-08-14] MEDS: Propranolol LA (24 HR) 80 MG CAP.SA.24H PO SCH (08:09)
[2016-08-14] MEDS: Folic Acid 1 MG TABLET PO SCH (08:10)
--- NOTE | 2016-08-14 08:25 | Pulmonology Progress Note ---
Date of Encounter: 08/14/16 Time of Encounter: 08:22 Assessment and Plan (1) Lung consolidation Current Visit: Yes Status: Chronic Lung consolidation in this patient with lung cancer may be due to established malignancy, mucous plug as opposed to pneumonia. There is no evidence to suggest infectious pathogen then antibiotics can be discontinued when cultures from bronchoscopy are finalized. Incidentally, the bronchoscopy only disclosed mucous and inflammatory changes within the right upper lobe. The patient does have underlying COPD. Treatment of the same, continue bronchodilator therapy, steroids and supplemental oxygen. The steroids can be switched to enteral route in discontinued in 5 days. Call if any questions Ed [facility] [phone] Code(s): J18.1 - Lobar pneumonia, unspecified organism SNOMED Code(s): 68020011 Subjective Principal diagnosis: Right upper lobe atelectasis Interval history: The patient relates history of mild cough chest congestion and sputum production. This patient has a history of non-small cell lung cancer was received prior radiation therapy and follow-up imaging has revealed persistent right upper lobe infiltrate and possible volume loss. Currently, the patient notes absence of purulent sputum production hemoptysis or chest pain. Dyspnea has improved since her admission. Objective PUL Vital signs: Last Vital Signs Temp 97.4 F L 08/14/16 06:58 Pulse 88 08/14/16 06:58 Resp 18 08/14/16 07:24 BP 126/65 08/14/16 06:58 Pulse Ox 93 L 08/14/16 07:24 General appearance: no acute distress Eyes: nonicteric ENT: oropharynx moist Auscultation: bilateral: diminished breath sounds, rhonchi, other (Mildly prolonged expiratory phase.) Cardiovascular: regular rate and rhythm Gastrointestinal: normoactive bowel sounds, non-distended Extremities: no cyanosis Musculoskeletal: no deformities Gait: normal posture normal mental status, non-focal exam Results - Laboratory Findings CBC and BMP: 08/14/16 05:40 08/13/16 05:00 PT/INR, D-dimer PT 10.3 Seconds (9.4-12.1) 08/13/16 05:00 D-Dimer 1379 ng/mLFEU (0-500) H 08/10/16 09:40 Abnormal lab findings: Abnormal lab results WBC 14.3 K/mcL (4.3-11.1) H 08/14/16 05:40 RBC 3.27 M/mcL (3.82-4.97) L 08/14/16 05:40 Hgb 8.3 g/dL (11.5-15.4) L 08/14/16 05:40 Hct 26.8 % (35.3-44.9) L 08/14/16 05:40 MCV 82.0 fL (83.0-100.0) L 08/14/16 05:40 MCH 25.4 pg (28.0-33.3) L 08/14/16 05:40 MCHC 31.0 g/dL (31.6-35.5) L 08/14/16 05:40 RDW 18.8 % (11.5-14.5) H 08/14/16 05:40 MPV 9.1 fL (9.4-12.4) L 08/14/16 05:40 Neutrophils # 13.5 K/mcL (1.6-8.9) H 08/14/16 05:40 Lymphocytes # 0.2 K/mcL (0.6-4.6) L 08/14/16 05:40 Nucleated RBCs/100 WBC 0.2 /100 WBC (0) H 08/12/16 05:06 D-Dimer 1379 ng/mLFEU (0-500) H 08/10/16 09:40 Sodium 132 mEq/L (136-145) L 08/13/16 05:00 BUN 36 mg/dL (7-20) H D 08/13/16 05:00 BUN/Creatinine Ratio 46 (6-26) H 08/13/16 05:00 Glucose 152 mg/dL (70-99) H 08/13/16 05:00 Calcium 8.2 mg/dL (8.6-10.8) L 08/13/16 05:00 Iron 35 mcg/dL (50-170) L 08/14/16 05:40 % Saturation 9 % (15-50) L 08/14/16 05:40 Alkaline Phosphatase 34 Units/L (38-126) L 08/11/16 06:41 B-Natriuretic Peptide 116 pg/mL (0-100) H 08/10/16 09:40 Serum Total Protein 5.1 g/dL (6.0-8.3) L 08/11/16 06:41 Albumin 2.6 g/dL (3.5-5.0) L 08/11/16 06:41 Albumin/Globulin Ratio 1.0 (1.1-2.2) L 08/11/16 06:41 Stool Occult Blood Positive (Negative) A 08/10/16 12:17 - Clinical Findings Intake & Output: Intake & Output 08/13/16 08/14/16 08/14/16 23:59 07:59 15:59 Intake Total 100 / 100 100 / 100 Output Total 600 / 600 Balance -500 / -500 100 / 100 Weight 99.1 kg Consult Discharge Plan - Plan Referrals: Paulo Kim MD [Primary Care Provider] - 08/20/16 10:30 am ( )
[2016-08-14] MEDS ORDERED: Aminoglycoside Consult 1 EACH MC ONE (09:07)
--- NOTE | 2016-08-14 10:14 | Internal Med Progress Note ---
Date of Encounter: 08/14/16 Time of Encounter: 10:13 - Assessment and plan (1) Acute respiratory failure Current Visit: Yes Status: Acute Assessment and plan: Due to radiation pneumonitis, COPD exacerbation. Suspected superimposed pneumonia. not on oxygen at home Recent diagnosis of right-sided non-small cell lung cancer stage IIIa status post radiotherapy in March 2016 and right-sided radical mastectomy s/p radiotherapy in 1959. She developed radiation pneumonitis after completion of radiotherapy in March 2016 and has been taking glucocorticoids on and off since then due to shortness of breath. Last week, her shortness of breath worsened and she was prescribed a Tapered dose of glucocorticoids. Mild dry cough. No fever. No chills. No chest pain. No lower extremity edema. 08/10: CTA of the chest revealed no PE, decreased right pleural effusion, persistent right upper lobe consolidation. No mediastinal lymphadenopathy. 07/06: CTA of the chest revealed no PE, interval worsening of focal consolidation in the right upper lobe since 05/23/2016. 08/10: negative blood culture. 08/13: Bronchoscopy showed atelectasis of RUL. requiring 4L NC Duonebs change IV steroids to oral prednisone 60 mg daily. Aztreonam day 3 and Vancomycin day 4. Will stop antibiotics if negative BAL cultures. add mucinex. incentive spirometry Qualifiers: Respiratory failure complication: hypoxia Qualified Code(s): J96.01 - Acute respiratory failure with hypoxia (2) Acute dyspnea Current Visit: Yes Status: Acute Assessment and plan: patient takes deep and fast deep breaths when ambulates (3) COPD exacerbation Current Visit: Yes Status: Acute Assessment and plan: plan as above (4) Radiation pneumonitis Current Visit: Yes Status: Chronic Assessment and plan: plan as above (5) Lung consolidation Current Visit: Yes Status: Chronic (6) Lung cancer, upper lobe Current Visit: Yes Status: Chronic Assessment and plan: Pulmonology following. Bronchoscopy today Qualifiers: Laterality: right Qualified Code(s): C34.11 - Malignant neoplasm of upper lobe, right bronchus or lung (7) Anxiety Current Visit: Yes Status: Chronic Assessment and plan: On citalopram and Ativan as needed (8) Hypertension Current Visit: Yes Status: Chronic Assessment and plan: Blood pressure remains elevated. Amlodipine dosage was increased. No other changes at this time. Continue to monitor blood pressure. Qualifiers: Hypertension type: essential hypertension Qualified Code(s): I10 - Essential (primary) hypertension - Subjective Interval history: patient becomes very dyspneic when walking to the bathroom. She has no complaints at this time. - Constitutional Vitals: Temp Pulse Resp BP Pulse Ox 97.4 F L 88 18 126/65 93 L 08/14/16 06:58 08/14/16 06:58 08/14/16 07:24 08/14/16 06:58 08/14/16 07:24 General appearance: Present: cooperative, mild distress, A&O X 3, morbidly obese , pleasant, obese, answers questions appropriately - Eye Eye exam: Present: PERRL, sclera anicteric - ENT ENT exam: Present: mucous membranes dry - Neck Neck exam general surgery: Present: supple, trachea midline. Absent: lymphadenopathy - Respiratory Respiratory exam: Present: rhonchi - Cardiovascular Cardiovascular exam: Present: RRR - GI/Abdominal GI/Abdominal exam: Present: normal bowel sounds, soft. Absent: distended, tenderness - Extremities Exam Extremities exam: Absent: pedal edema - Back Exam Back exam: Absent: CVA tenderness (L), CVA tenderness (R) - Neurological Exam Neurological exam: Present: alert, oriented X3, strengths equal and symetr throughout. Absent: no focal deficits - Skin Skin exam: Present: dry. Absent: rash Internal Medicine: Result - Labs CBC & Chem 7: 08/14/16 05:40 08/13/16 05:00 Labs: Short CBC 08/14/16 Range/Units 05:40 WBC 14.3 H (4.3-11.1) K/mcL Hgb 8.3 L (11.5-15.4) g/dL Hct 26.8 L (35.3-44.9) % Plt Count 318 (140-400) K/mcL Neutrophils # 13.5 H (1.6-8.9) K/mcL - ABG Interpretation ABG results: PT/INR, D-dimer PT 10.3 Seconds (9.4-12.1) 08/13/16 05:00 D-Dimer 1379 ng/mLFEU (0-500) H 08/10/16 09:40 Consult Discharge Plan - Plan Referrals: Paulo Kim MD [Primary Care Provider] - 08/20/16 10:30 am ( )
--- NOTE | 2016-08-14 11:13 | Gastroenterology Consult Note ---
<BairesConrad Upton - Last Filed: 08/14/16 11:10> Date of Encounter: 08/14/16 Time of Encounter: 09:55 - Assessment and plan (1) Anemia Current Visit: Yes Status: Acute Assessment and plan: Continue to monitor CBC and transfuse PRBC as needed. Baseline Hgb 9-10, Hgb this AM 8.3. Plan for colonoscopy and EGD tomorrow. Clear liquid diet today, no red or purple. NPO at midnight. If unable tolerate NuLytely please use MiraLAX prep. If not clear by 6 AM, give 2 tap water enemas. Continue iron supplementation. Qualifiers: Anemia type: other cause Other causes of anemia: other cause, not classified Qualified Code(s): D64.89 - Other specified anemias (2) Lung cancer, upper lobe Current Visit: Yes Status: Chronic Qualifiers: Laterality: right Qualified Code(s): C34.11 - Malignant neoplasm of upper lobe, right bronchus or lung (3) Lung consolidation Current Visit: Yes Status: Chronic Assessment and plan: Bronchoscopy completed yesterday per pulmonology - Time Spent With Patient Total time spent is greater than 50% in coordination of care (as documented) at patient's floor/unit and/or counseling patient: GI History of Present Illness - Data of Consult Patient: new to practice Consult date: 08/14/16 Requesting Physician: Yessica Ortiz - Consult Narrative Reason for consult: Anemia History of present illness: Ms. Irby is a 80 year old female with PMHx of HTN, anxiety, COPD, right non- small cell lung cancer stage IIIa s/p radiation therapy, and right sided radical mastectomy s/p radiation therapy 1960. She presented to the ED with worsening SOB for 3 days. She was diagnosed with radiation pneumonitis and she was started on steroids. Bronchoscopy completed to evaluate lung consolidation. Hgb on admission was 7.9, with baseline between 9-10. FOBT was positive on . We have been consulted to evaluate her anemia. Hgb on 08/13 was 7.4, and today Hgb 8.3. Procedures: EUS 11/18/2015 dilated CBD and pancreatic cyst, recommended MRI in 6 months. ERCP 11/18/2015 sphincterotomy performed, biliary tree swept and sludge was found. Colonoscopy 01/20/2015 tubular adenoma of sigmoid and ascending colon, diverticulosis and internal hemorrhoids EGD 01/20/2015 normal NSAIDs: None Anticoagulation: None Past Med Surg Social Fam HX - Past Medical History Medical history: cancer, hypertension, migraine, other Psychiatric history: anxiety, depression - Past Surgical History Surgical History: cancer surgery, cholecystectomy, hysterectomy, orthopedic, other - Social History Smoking Status: Never smoker Smokeless Tobacco Status: No Alcohol use: none Drug use: none - Family History Father Living Status: Hx Family Cardiac Disorders: Yes Mother Living Status: Hx Family Cancer: Yes - Gastrointestinal Gastrointestinal: Present: as per HPI - Constitutional Constitutional: as per HPI - EENT Eyes: as per HPI Ears: Present: as per HPI Nose, mouth and throat: Present: as per HPI - Cardiovascular Cardiovascular ROS: Present: as per HPI - Respiratory Respiratory IM: Present: as per HPI - Genitourinary Genitourinary: Absent: change in color, Urinary frequency - Neurological ROS Neurological GI: Present: as per HPI - Hematologic/Lymphatic Hematologic/Lymphatic pediatric: Present: as per HPI - Musculoskeletal Musculoskeletal ROS GI: Present: as per HPI - Integumentary Integumentary GI: Present: as per HPI - Psychiatric ROS Psychiatric GI: Present: as per HPI - Endocrine Endocrine IM: Present: as per HPI - Constitutional Vitals: Temp Pulse Resp BP Pulse Ox 97.3 F L 84 18 131/70 94 L 08/14/16 10:23 08/14/16 10:23 08/14/16 10:23 08/14/16 10:23 08/14/16 10:23 General appearance: Present: cooperative, A&O X 3, no acute distress, answers questions appropriately - Head Head exam: Present: atraumatic, normocephalic - Eye Eye exam: Present: normal appearance, sclera anicteric - ENT ENT exam: Present: mucous membranes moist - Neck Neck exam general surgery: Present: normal inspection, trachea midline - Respiratory Respiratory exam: Present: decreased breath sounds, rhonchi - Cardiovascular Cardiovascular exam: Present: RRR, +S1, +S2 - GI/Abdominal GI/Abdominal exam: Present: normal bowel sounds, soft, no peritoneal signs. Absent: distended, firm, guarding, tenderness - Rectal Rectal exam: Present: deferred - Extremities Exam Extremities exam: Present: warm - Neurological Exam Neurological exam: Present: no focal deficits - Psychiatric Psychiatric exam: Present: normal affect, normal mood - Skin Skin exam: Present: dry, intact, normal color, warm Results - Labs CBC & Chem 7: 08/14/16 05:40 08/13/16 05:00 Labs: Last Result Calcium 8.2 mg/dL (8.6-10.8) L 08/13/16 05:00 Iron 35 mcg/dL (50-170) L 08/14/16 05:40 % Saturation 9 % (15-50) L 08/14/16 05:40 Transferrin 283 mg/dL (180-382) 08/14/16 05:40 Ferritin 45 ng/ml (5-204) 08/14/16 05:40 Troponin I 0.01 ng/mL (0-0.03) 08/10/16 09:40 Vitamin B12 283 pg/mL (213-816) 08/14/16 05:40 Folate 7.4 ng/mL (7.0-31.4) 08/14/16 05:40 Stool Occult Blood Positive (Negative) A 08/10/16 12:17 Entire Visit Hgb 8.3 g/dL (11.5-15.4) L 08/14/16 05:40 Hct 26.8 % (35.3-44.9) L 08/14/16 05:40 PT 10.3 Seconds (9.4-12.1) 08/13/16 05:00 Ferritin 45 ng/ml (5-204) 08/14/16 05:40 Total Bilirubin 0.6 mg/dL (0.2-1.2) 08/11/16 06:41 AST 6 Units/L (5-34) 08/11/16 06:41 ALT 9 Units/L (0-55) 08/11/16 06:41 Folate 7.4 ng/mL (7.0-31.4) 08/14/16 05:40 - ABG ABG results: PT/INR, D-dimer PT 10.3 Seconds (9.4-12.1) 08/13/16 05:00 D-Dimer 1379 ng/mLFEU (0-500) H 08/10/16 09:40 Consult Discharge Plan - Plan Referrals: Paulo Kim MD [Primary Care Provider] - 08/20/16 10:30 am ( ) <Xochilt Grigsby - Last Filed: 08/14/16 17:24> Time of Encounter: 14:00 - Time Spent With Patient Total time spent is greater than 50% in coordination of care (as documented) at patient's floor/unit and/or counseling patient: GI History of Present Illness - Data of Consult Requesting Physician: Yessica Ortiz - Consult Narrative History of present illness: Ms. Irby is a 80 year old female - Constitutional Vitals: Temp Pulse Resp BP Pulse Ox 97.5 F L 88 20 154/78 97 08/14/16 15:44 08/14/16 15:44 08/14/16 15:53 08/14/16 15:44 08/14/16 15:53 Results - Labs CBC & Chem 7: 08/14/16 05:40 08/13/16 05:00 Labs: Last Result Calcium 8.2 mg/dL (8.6-10.8) L 08/13/16 05:00 Iron 35 mcg/dL (50-170) L 08/14/16 05:40 % Saturation 9 % (15-50) L 08/14/16 05:40 Transferrin 283 mg/dL (180-382) 08/14/16 05:40 Ferritin 45 ng/ml (5-204) 08/14/16 05:40 Troponin I 0.01 ng/mL (0-0.03) 08/10/16 09:40 Vitamin B12 283 pg/mL (213-816) 08/14/16 05:40 Folate 7.4 ng/mL (7.0-31.4) 08/14/16 05:40 Stool Occult Blood Positive (Negative) A 08/10/16 12:17 Entire Visit Hgb 8.3 g/dL (11.5-15.4) L 08/14/16 05:40 Hct 26.8 % (35.3-44.9) L 08/14/16 05:40 PT 10.3 Seconds (9.4-12.1) 08/13/16 05:00 Ferritin 45 ng/ml (5-204) 08/14/16 05:40 Total Bilirubin 0.6 mg/dL (0.2-1.2) 08/11/16 06:41 AST 6 Units/L (5-34) 08/11/16 06:41 ALT 9 Units/L (0-55) 08/11/16 06:41 Folate 7.4 ng/mL (7.0-31.4) 08/14/16 05:40 - ABG ABG results: PT/INR, D-dimer PT 10.3 Seconds (9.4-12.1) 08/13/16 05:00 D-Dimer 1379 ng/mLFEU (0-500) H 08/10/16 09:40 - Attending Attestation I examined this patient and my medical decision-making was reviewed with the INNOVATION ANALYST/PA/Advanced Practice Nurse/Resident Physician. I agree with the documented findings, disposition and treatment plan as described except to the extent set forth below.
[2016-08-14] MEDS: *HR* LORazepam 1 MG TABLET PO PRN ×3 (12:03→21:39)
[2016-08-14 13:58] LABS: Appearance of Body Fluid Cloudy (Clear); Volume of Body Fluid 33 mL
[2016-08-14] MEDS: predniSONE 20 MG TABLET PO SCH (14:05)
[2016-08-14] MEDS ORDERED: SODIUM CHLORIDE/NAHCO3/KCL/PEG 4,000 ML SOLN.RECON PO ONE (17:00)
[2016-08-14] MEDS ORDERED: Vancomycin 2,000 MG in D5% in Water 500 ML IVPB SCH (23:30)
[2016-08-15] MEDS: Ipratropium/Albuterol Neb 3 ML IH SCH ×6 (04:28→23:17)
[2016-08-15 05:44] LABS: Basophils % 0.1 %; Hematocrit 23.7 % (35.3-44.9); Hemoglobin 7.4 g/dL (11.5-15.4); Immature Granulocytes % 1.1 % (0-4); Lymphocytes # 0.2 K/mcL (0.6-4.6); Lymphocytes % 2.7 %; Mean Corpuscular HGB Conc 31.2 g/dL (31.6-35.5); Mean Corpuscular Hemoglobin 25.4 pg (28.0-33.3); Mean Corpuscular Volume 81.4 fL (83.0-100.0); Monocytes # 0.5 K/mcL (0.0-1.3); Monocytes % 5.8 %; Neutrophils # 7.7 K/mcL (1.6-8.9); Platelet Count 242 K/mcL (140-400); Red Blood Count 2.91 M/mcL (3.82-4.97); Red Cell Distribution Width 18.7 % (11.5-14.5); Segmented Neutrophils % 90.3 %
[2016-08-15 06:00] LABS: BUN/Creatinine Ratio 42 (6-26); Blood Urea Nitrogen 26 mg/dL (7-20); Calcium 7.9 mg/dL (8.6-10.8); Carbon Dioxide 26 mEq/L (19-29); Chloride 103 mEq/L (98-109); Glucose 141 mg/dL (70-99); Magnesium 1.9 mg/dL (1.6-2.6); Osmolality,Calculated 287 (280-300); Potassium 3.8 mEq/L (3.5-4.5); Sodium 135 mEq/L (136-145); eGFR For African Americans > 60 (> 60); eGFR For Non-African Americans > 60 (> 60)
[2016-08-15] MEDS: Sucralfate 1 GM TABLET PO SCH ×4 (08:28→21:24)
[2016-08-15] MEDS: Pantoprazole 40 MG VIAL IVP SCH (08:29)
[2016-08-15] MEDS: predniSONE 20 MG TABLET PO SCH (08:29)
[2016-08-15] MEDS: Aztreonam 2,000 MG in D5% in Water (Mini-Bag+) 100 ML IVPB SCH (08:29)
[2016-08-15] MEDS: Metoprolol XL (24 HR) Succ 50 MG TAB.ER.24H PO SCH (08:29)
[2016-08-15] MEDS: Folic Acid 1 MG TABLET PO SCH (08:29)
--- NOTE | 2016-08-15 13:01 | Anesthesia Evaluation PreOp ---
Date of Encounter: 08/15/16 Time of Encounter: 12:59 - Past History Planned Operation: egd/cscope acute anemia Cardiac History: HTN, Other (echo 04/08 ef 60, nl rv, rvsp 33) Pulmonary History: COPD, Other (R NSCLCA, radiation pneumonitis, s/p bronch) SNAPPER ON History: Other (anxiety, depression) Other Medical History: GERD Anesthesia History: No Prior Anesthetic Complications, Past Anesthesia (r mastectomy, XRT to cw and Lung, cholecsyt, hysterect) Alcohol Use: none Drug use: none Medications and Allergies Losartan Potassium [Cozaar] 50 mg PO DAILY 11/16/15 [History] Sucralfate [Carafate] 1 gm PO QIDAC #120 tablet 03/07/16 [Rx] Amlodipine [Norvasc] 5 mg PO QPM 04/20/16 [History] Omeprazole [PriLOSEC] 40 mg PO DAILY 04/20/16 [History] Propranolol LA (24 HR) [Inderal LA] 80 mg PO DAILY 04/20/16 [History] Albuterol Sulfate [Albuterol Inhaler] 2 puff IH BID PRN #1 hfa.aer.ad 07/03/16 [ Rx] Citalopram [CeleXA] 20 mg PO DAILY #30 tablet 07/10/16 [Rx] Guaifenesin/Codeine Phosphate [Guaifenesin-Codeine Syrup] 5 - 10 ml PO QID PRN # 473 ml 07/10/16 [Rx] LORazepam [Ativan] 1 mg PO TID PRN #90 tablet 07/10/16 [Rx] Azithromycin [Azithromycin 6-Tab Pack] 250 mg PO PER PKG DI #6 tab 08/01/16 [Rx] Folic Acid 1 mg PO DAILY #30 tablet 08/03/16 [Rx] Ferrous Sulfate [Iron] 325 mg PO TID 08/10/16 [History] Pantoprazole Sodium [Protonix] 40 mg PO DAILY 08/10/16 [History] PredniSONE [Deltasone] 20 mg PO BID 08/10/16 [History] Allergies bupropion [From Wellbutrin] Allergy (Verified 05/15/16 08:54) Hives Hydromorphone [From Dilaudid] Allergy (Verified 05/15/16 08:54) Hives Penicillins Allergy (Verified 05/15/16 08:54) Hives phenytoin [From Dilantin] Allergy (Verified 05/15/16 08:54) Unresponsive acetaminophen [From Percocet] Adverse Reaction (Verified 05/15/16 08:54) Hallucinating Oxycodone [From Percocet] Adverse Reaction (Verified 05/15/16 08:54) Hallucinating - Meds/Allergy Pre-op Review Medications Reviewed: Yes Allergies Reviewed: Yes Beta Blockers on Current Med List: Yes If Beta Blockers taken, Date/Time (Last Dose taken): metoprolol 8:29 Anesthesia Results - Labs 08/15/16 05:35 08/15/16 05:35 - Imaging EKG: report reviewed (sr/lvh) Anesthesia Exam Vital Signs/O2 Sat/Glucose, Most Current Temp Pulse Resp BP Pulse Ox 08/15/16 11:05 97.5 F L 79 18 154/73 95 Height: 1.65 Weight: 100 NPO (# of Hours): >8 - HEENT Pupil (Motor): Pupils equal, EOMI Mallampati: II Teeth: Poor dentition Oral Opening: Greater than 3 - SNAPPER ON LOC: Oriented SNAPPER ON Motor: Normal RUE, Normal LUE, Normal RLE, Normal LLE, Normal Face SNAPPER ON Sensory: Normal: RUE, LUE, RLE, LLE, Face - Cardiac Rhythm: Regular Murmur: None - Pulmonary Breath Sounds: bilateral Rhonchi (neb ordered) Respiratory Effort: Labored (minimal, pt states improved since admission) Anesthesia Assess/Plan ASA Score: 3 Modified Providence Scale for Level of Consciousness: Cooperative, oriented, and tranquil Anesthetic Plan: MAC Monitoring Plan: Standard Monitors Recovery Plan: Other
[2016-08-15] MEDS ORDERED: Albuterol 2.5 MG/3 ML NEBULIZER ONE (13:07)
[2016-08-15] MEDS ORDERED: Albuterol 2.5 MG/3 ML NEBULIZER IH ONE (13:11)
[2016-08-15] MEDS ORDERED: 0.9 % Sodium Chloride 1,000 ML IVC SCH (13:15)
[2016-08-15] MEDS ORDERED: Tetracaine/Benzocaine/Butamben 200MG/SPRAY (100SPY/BOT) MM ONE (13:18)
[2016-08-15] MEDS: *HR* LORazepam 1 MG TABLET PO PRN ×2 (16:54→21:30)
--- NOTE | 2016-08-15 17:25 | Internal Med Progress Note ---
Date of Encounter: 08/15/16 Time of Encounter: 10:00 - Assessment and plan (1) Acute respiratory failure Current Visit: Yes Status: Acute Assessment and plan: Due to radiation pneumonitis, COPD exacerbation. Suspected superimposed pneumonia. not on oxygen at home Recent diagnosis of right-sided non-small cell lung cancer stage IIIa status post radiotherapy in March 2016 and right-sided radical mastectomy s/p radiotherapy in 1959. She developed radiation pneumonitis after completion of radiotherapy in March 2016 and has been taking glucocorticoids on and off since then due to shortness of breath. Last week, her shortness of breath worsened and she was prescribed a Tapered dose of glucocorticoids. Mild dry cough. No fever. No chills. No chest pain. No lower extremity edema. 08/10: CTA of the chest revealed no PE, decreased right pleural effusion, persistent right upper lobe consolidation. No mediastinal lymphadenopathy. 07/06: CTA of the chest revealed no PE, interval worsening of focal consolidation in the right upper lobe since 05/23/2016. 08/10: negative blood culture. 08/13: Bronchoscopy showed atelectasis of RUL. BAL cultures are negative [facility] to oral prednisone 60 mg daily. Aztreonam day 3 and Vancomycin day 4. stop antibiotics since negative BAL cultures. mucinex. incentive spirometry Qualifiers: Respiratory failure complication: hypoxia Qualified Code(s): J96.01 - Acute respiratory failure with hypoxia (2) Acute dyspnea Current Visit: Yes Status: Acute Assessment and plan: patient takes deep and fast deep breaths when ambulates (3) COPD exacerbation Current Visit: Yes Status: Acute Assessment and plan: plan as above (4) Radiation pneumonitis Current Visit: Yes Status: Chronic Assessment and plan: plan as above (5) Lung consolidation Current Visit: Yes Status: Chronic (6) Lung cancer, upper lobe Current Visit: Yes Status: Chronic Assessment and plan: Pulmonology following. Bronchoscopy today Qualifiers: Laterality: right Qualified Code(s): C34.11 - Malignant neoplasm of upper lobe, right bronchus or lung (7) Anxiety Current Visit: Yes Status: Chronic Assessment and plan: On citalopram and Ativan as needed (8) Hypertension Current Visit: Yes Status: Chronic Assessment and plan: Blood pressure remains elevated. Amlodipine dosage was increased. No other changes at this time. Continue to monitor blood pressure. Qualifiers: Hypertension type: essential hypertension Qualified Code(s): I10 - Essential (primary) hypertension - Subjective Interval history: patient has no complaints at this time. - Constitutional Vitals: Temp Pulse Resp BP Pulse Ox 97.3 F L 96 20 146/66 98 08/15/16 15:25 08/15/16 15:25 08/15/16 16:21 08/15/16 15:25 08/15/16 16:21 General appearance: Present: cooperative, mild distress, A&O X 3, morbidly obese , pleasant, obese, answers questions appropriately - Eye Eye exam: Present: PERRL, sclera anicteric - Neck Neck exam general surgery: Present: supple, trachea midline. Absent: lymphadenopathy - Respiratory Respiratory exam: Present: decreased breath sounds, wheezes (mild wheezes at baseline) - Cardiovascular Cardiovascular exam: Present: RRR - Back Exam Back exam: Absent: CVA tenderness (L), CVA tenderness (R) - Neurological Exam Neurological exam: Present: alert, oriented X3. Absent: facial droop, speech deficit - Skin Skin exam: Absent: rash Internal Medicine: Result - Labs CBC & Chem 7: 08/15/16 05:35 08/15/16 05:35 Labs: Short CBC 08/15/16 Range/Units 05:35 WBC 8.5 (4.3-11.1) K/mcL Hgb 7.4 L (11.5-15.4) g/dL Hct 23.7 L (35.3-44.9) % Plt Count 242 (140-400) K/mcL Neutrophils # 7.7 (1.6-8.9) K/mcL BMP 08/15/16 05:35 Sodium 135 L Potassium 3.8 Chloride 103 Carbon Dioxide 26 BUN 26 H D Creatinine 0.62 Glucose 141 H Calcium 7.9 L - ABG Interpretation ABG results: PT/INR, D-dimer PT 10.3 Seconds (9.4-12.1) 08/13/16 05:00 D-Dimer 1379 ng/mLFEU (0-500) H 08/10/16 09:40 Consult Discharge Plan - Plan Referrals: Tonya Edmond MD [Partnered Physician] - 08/29/16 9:30 am Paulo Kim MD [Primary Care Provider] - 08/20/16 10:30 am ( )
[2016-08-16] MEDS: Ipratropium/Albuterol Neb 3 ML IH SCH ×5 (05:23→19:54)
[2016-08-16] MEDS: *HR* LORazepam 1 MG TABLET PO PRN ×3 (05:33→20:21)
[2016-08-16 05:52] LABS: Eosinophils % 0.1 %; Hematocrit 24.2 % (35.3-44.9); Hemoglobin 7.7 g/dL (11.5-15.4); Immature Granulocytes % 1.8 % (0-4); Immature Platelets 1.3 % (1.1-6.1); Lymphocytes # 0.5 K/mcL (0.6-4.6); Lymphocytes % 5.5 %; Mean Corpuscular HGB Conc 31.8 g/dL (31.6-35.5); Mean Corpuscular Hemoglobin 26.1 pg (28.0-33.3); Mean Platelet Volume 9.7 fL (9.4-12.4); Monocytes # 0.7 K/mcL (0.0-1.3); Monocytes % 7.9 %; Platelet Count 277 K/mcL (140-400); Red Blood Count 2.95 M/mcL (3.82-4.97); Red Cell Distribution Width 18.8 % (11.5-14.5); Segmented Neutrophils % 84.7 %
[2016-08-16 06:59] LABS: BUN/Creatinine Ratio 38 (6-26); Blood Urea Nitrogen 26 mg/dL (7-20); Calcium 7.9 mg/dL (8.6-10.8); Carbon Dioxide 21 mEq/L (19-29); Chloride 106 mEq/L (98-109); Glucose 107 mg/dL (70-99); Osmolality,Calculated 285 (280-300); Potassium 4.1 mEq/L (3.5-4.5); Sodium 135 mEq/L (136-145); eGFR For African Americans > 60 (> 60); eGFR For Non-African Americans > 60 (> 60)
--- NOTE | 2016-08-16 09:28 | Internal Med Progress Note ---
Date of Encounter: 08/16/16 Time of Encounter: 09:00 - Assessment and plan (1) Acute respiratory failure Current Visit: Yes Status: Acute Assessment and plan: Due to radiation pneumonitis, COPD exacerbation and severe anxiety. Suspected superimposed pneumonia but BAL cultures were negative and no significant findings in bronch. not on oxygen at home Recent diagnosis of right-sided non-small cell lung cancer stage IIIa status post radiotherapy in March 2016 and right-sided radical mastectomy s/p radiotherapy in 1959. She developed radiation pneumonitis after completion of radiotherapy in March 2016 and has been taking glucocorticoids on and off since then due to shortness of breath. Last week, her shortness of breath worsened and she was prescribed a Tapered dose of glucocorticoids. Mild dry cough. No fever. No chills. No chest pain. No lower extremity edema. 08/10: CTA of the chest revealed no PE, decreased right pleural effusion, persistent right upper lobe consolidation. No mediastinal lymphadenopathy. 07/06: CTA of the chest revealed no PE, interval worsening of focal consolidation in the right upper lobe since 05/23/2016. 08/10: negative blood culture. 08/13: Bronchoscopy showed atelectasis of RUL. BAL cultures are negative 08/14: completed Aztreonam day 3 and Vancomycin day 4. antiobiotics stopped due to negative BAL cultures. suspected symptomatic anemia, I will transfuse 1 unit PRBC to attempt help with symptoms. requiring 4L NC duonebs prednisone 60 mg daily. 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 Baseline hgb is 9-10. 08/15: EGD showed large hiatal hernia. colonoscopy showed stools in entire colon, colonic diverticulosis, 3 polyps that were removed. Repeat colonoscopy in 3 years. Hgb 7.4 - 7.7. fecal occult blood test was positive. patient could have episodes of slow rate bleeding from large hiatal hernia +/- diverticulosos. given symptoms, I will transfuse 1 unit PRBC. (4) COPD exacerbation Current Visit: Yes Status: Acute Assessment and plan: plan as above (5) Radiation pneumonitis Current Visit: Yes Status: Chronic Assessment and plan: plan as above (6) Lung consolidation Current Visit: Yes Status: Chronic Assessment and plan: plan as above (7) Anxiety Current Visit: Yes Status: Chronic Assessment and plan: On citalopram and Ativan as needed (8) Lung cancer, upper lobe Current Visit: Yes Status: Chronic Assessment and plan: Pulmonology following. Bronchoscopy today Qualifiers: Laterality: right Qualified Code(s): C34.11 - Malignant neoplasm of upper lobe, right bronchus or lung (9) Hypertension Current Visit: Yes Status: Chronic Assessment and plan: Blood pressures are adequate. losartan Qualifiers: Hypertension type: essential hypertension Qualified Code(s): I10 - Essential (primary) hypertension - Subjective Interval history: patient reports tachypnea and tachycardia at minimal exertion, she feels it is not safe for her to go home. she declines rehab placement and PT eval - Constitutional Vitals: Temp Pulse Resp BP Pulse Ox 97.7 F 90 16 147/74 98 08/16/16 06:56 08/16/16 06:56 08/16/16 07:49 08/16/16 06:56 08/16/16 07:49 General appearance: Present: cooperative, mild distress, A&O X 3, morbidly obese , pleasant, obese, answers questions appropriately - Eye Eye exam: Present: PERRL, sclera anicteric - ENT ENT exam: Present: mucous membranes moist - Neck Neck exam general surgery: Present: supple, trachea midline. Absent: lymphadenopathy - Respiratory Respiratory exam: Present: decreased breath sounds, rhonchi - Cardiovascular Cardiovascular exam: Present: RRR - GI/Abdominal GI/Abdominal exam: Present: normal bowel sounds, soft. Absent: distended, tenderness - Extremities Exam Extremities exam: Absent: joint swelling, pedal edema - Back Exam Back exam: Absent: CVA tenderness (L), CVA tenderness (R) - Skin Skin exam: Absent: rash Internal Medicine: Result - Labs CBC & Chem 7: 08/16/16 04:01 08/16/16 04:01 Labs: Short CBC 08/16/16 Range/Units 04:01 WBC 8.3 (4.3-11.1) K/mcL Hgb 7.7 L (11.5-15.4) g/dL Hct 24.2 L (35.3-44.9) % Plt Count 277 (140-400) K/mcL Neutrophils # 7.0 (1.6-8.9) K/mcL BMP 08/16/16 04:01 Sodium 135 L Potassium 4.1 Chloride 106 Carbon Dioxide 21 BUN 26 H Creatinine 0.69 Glucose 107 H Calcium 7.9 L - ABG Interpretation ABG results: PT/INR, D-dimer PT 10.3 Seconds (9.4-12.1) 08/13/16 05:00 D-Dimer 1379 ng/mLFEU (0-500) H 08/10/16 09:40 Consult Discharge Plan - Plan Referrals: Tonya Edmond MD [Partnered Physician] - 08/29/16 9:30 am Paulo Kim MD [Primary Care Provider] - 08/20/16 10:30 am ( )
[2016-08-16] MEDS: Folic Acid 1 MG TABLET PO SCH (10:30)
[2016-08-16] MEDS: Metoprolol XL (24 HR) Succ 50 MG TAB.ER.24H PO SCH (10:30)
[2016-08-16] MEDS: Sucralfate 1 GM TABLET PO SCH ×4 (10:30→20:21)
[2016-08-16] MEDS: predniSONE 20 MG TABLET PO SCH (10:30)
[2016-08-16] MEDS: Pantoprazole 40 MG VIAL IVP SCH (10:30)
[2016-08-16] MEDS ORDERED: 0.9 % Sodium Chloride 250 ML ONE (12:47)
[2016-08-17] MEDS: Ipratropium/Albuterol Neb 3 ML IH SCH ×5 (00:43→15:59)
[2016-08-17] MEDS: Sucralfate 1 GM TABLET PO SCH ×2 (06:04→10:37)
[2016-08-17 06:19] LABS: Eosinophils % 0.1 %; Hematocrit 27.6 % (35.3-44.9); Hemoglobin 8.8 g/dL (11.5-15.4); Lymphocytes # 0.4 K/mcL (0.6-4.6); Lymphocytes % 5.2 %; Mean Corpuscular HGB Conc 31.9 g/dL (31.6-35.5); Mean Corpuscular Hemoglobin 26.3 pg (28.0-33.3); Mean Corpuscular Volume 82.4 fL (83.0-100.0); Mean Platelet Volume 8.4 fL (9.4-12.4); Monocytes # 0.5 K/mcL (0.0-1.3); Monocytes % 6.5 %; Platelet Count 209 K/mcL (140-400); Red Blood Count 3.35 M/mcL (3.82-4.97); Red Cell Distribution Width 18.3 % (11.5-14.5); Segmented Neutrophils % 87.2 %
[2016-08-17 06:28] LABS: BUN/Creatinine Ratio 43 (6-26); Blood Urea Nitrogen 30 mg/dL (7-20); Calcium 7.9 mg/dL (8.6-10.8); Carbon Dioxide 26 mEq/L (19-29); Chloride 105 mEq/L (98-109); Glucose 108 mg/dL (70-99); Osmolality,Calculated 289 (280-300); Potassium 4.2 mEq/L (3.5-4.5); Sodium 136 mEq/L (136-145); eGFR For African Americans > 60 (> 60); eGFR For Non-African Americans > 60 (> 60)
--- NOTE | 2016-08-17 06:35 | Electrocardiograph Report ---
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
[2016-08-17] MEDS ORDERED: Metoprolol XL (24 HR) Succ 50 MG TAB.ER.24H PO SCH (09:00)
[2016-08-17] MEDS: predniSONE 20 MG TABLET PO SCH (10:36)
[2016-08-17] MEDS: Folic Acid 1 MG TABLET PO SCH (10:37)
[2016-08-17] MEDS: *HR* LORazepam 1 MG TABLET PO PRN (10:37)
[2016-08-17 11:20] VITALS: BP 121/70
--- NOTE | 2016-08-17 15:07 | Discharge Summary ---
Date of Encounter: 08/17/16 Time of Encounter: 10:00 - Discharge Diagnosis (1) Acute respiratory failure Priority: Primary Status: Acute Qualifiers: Respiratory failure complication: hypoxia Qualified Code(s): J96.01 - Acute respiratory failure with hypoxia (2) Acute dyspnea Priority: Primary Status: Acute (3) Acute blood loss anemia Priority: Primary Status: Acute (4) COPD exacerbation Priority: Primary Status: Acute (5) Radiation pneumonitis Priority: Primary Status: Chronic (6) Lung consolidation Priority: Secondary Status: Chronic (7) Anxiety Priority: Secondary Status: Chronic (8) Lung cancer, upper lobe Priority: Secondary Status: Chronic Qualifiers: Laterality: right Qualified Code(s): C34.11 - Malignant neoplasm of upper lobe, right bronchus or lung (9) Hypertension Priority: Secondary Status: Chronic Qualifiers: Hypertension type: essential hypertension Qualified Code(s): I10 - Essential (primary) hypertension - Discharge Medications Prescriptions: LORazepam [Ativan] 1 mg PO TID PRN #90 tablet PRN Reason: Anxiety PredniSONE 40 mg PO AD #40 tablet Home Medications: Sucralfate [Carafate] 1 gm PO QIDAC #120 tablet 03/07/16 [Rx] Omeprazole [PriLOSEC] 40 mg PO DAILY 04/20/16 [History] Citalopram [CeleXA] 20 mg PO DAILY #30 tablet 07/10/16 [Rx] Folic Acid 1 mg PO DAILY #30 tablet 08/03/16 [Rx] Ferrous Sulfate [Iron] 325 mg PO TID 08/10/16 [History] Pantoprazole Sodium [Protonix] 40 mg PO DAILY 08/10/16 [History] PredniSONE [Deltasone] 20 mg PO BID 08/10/16 [History] Albuterol Neb [Proventil Neb] 2.5 mg IH [id number] PRN #0 inhsol 08/17/16 [Rx] GuaiFENesin ER [Mucinex] 600 mg PO BID PRN #0 tbbp.12hr 08/17/16 [Rx] Ipratropium/Albuterol Neb [Duoneb] 3 ml IH [id number] inhsol 08/17/16 [Rx] LORazepam [Ativan] 1 mg PO TID PRN #90 tablet 08/17/16 [Rx] Losartan [Cozaar] 25 mg PO DAILY tablet 08/17/16 [Rx] Metoprolol XL (24 HR) Succ [Toprol Xl] 100 mg PO DAILY tab.er.24h 08/17/16 [Rx] PredniSONE 40 mg PO AD #40 tablet 08/17/16 [Rx] Allergies/Adverse Reactions: Allergies bupropion [From Wellbutrin] Allergy (Verified 05/15/16 08:54) Hives Hydromorphone [From Dilaudid] Allergy (Verified 05/15/16 08:54) Hives Penicillins Allergy (Verified 05/15/16 08:54) Hives phenytoin [From Dilantin] Allergy (Verified 05/15/16 08:54) Unresponsive acetaminophen [From Percocet] Adverse Reaction (Verified 05/15/16 08:54) Hallucinating Oxycodone [From Percocet] Adverse Reaction (Verified 05/15/16 08:54) Hallucinating Procedures/tests Complete & Pending: Procedures Performed prior 72 hours Category Date Time Status ECG 12 lead ECG [ECG] Routine Y 08/16/16 05:37 Completed Date of admission: 08/12/16 10:55 Primary care physician: Paulo Kim MD Consults: 08/13/16 10:53 Consult to Gastroenterology [CONS] Routine Consulting Provider: Gastroenterology Milady Reason for Consult: Anemia/ stool positive for occult blood Call Completed: Yes 08/13/16 10:54 Consult to Invasive Line Access Team [CONS] Routine Reason for Consult: poor vascular access Line Type: EPIV 08/16/16 15:15 Consult to Occupational Therapy [CONS] Routine Comment: Evaluate, develop and implement POC Consult to Physical Therapy [CONS] Routine Comment: Evaluate, develop and implement POC - Patient Status Disposition: Transfer SNF Condition: Good Functional capacity at discharge: uses cane/walker Overall status at discharge: patient is not back to baseline - Discharge Instructions Follow Up With: Tonya Edmond MD [Partnered Physician] - 08/29/16 9:30 am Paulo Kim MD [Primary Care Provider] - 08/20/16 10:30 am ( ) - Diet and Activity Activity: resume usual activities as tolerated, wear oxygen at all times (4L NC) Diet: low fat, low cholesterol, low salt diet Interval History: Patient and son are at bedside, I answered all questions. patient has mild dyspnea on exertion. Hospital course: Ms. Irby is a 80 year old female with past medical history of COPD, not oxygen dependant, HTN and anxiety. Recent diagnosis of right-sided non-small cell lung cancer stage IIIa status post radiotherapy in March 2016 and right- sided radical mastectomy s/p radiotherapy in 1959. She developed radiation pneumonitis after completion of radiotherapy in March 2016 and has been taking glucocorticoids on and off since then due to shortness of breath. A week before presentation, patient developed worsening of shortness of breath, and was prescribed a Tapered dose of glucocorticoids. Mild dry cough. No fever. No chills. No chest pain. No lower extremity edema. She was admitted for hypoxia secondary to radiation pneumonitis, COPD exacerbation and severe anxiety. She received duonebs, systemic glucocorticoids, mucinex, and ativan. There was a suspicious for superimposed pneumonia and she was started on antibiotics but BAL cultures were negative and no significant findings in bronch. All antibiotics were stopped. Patient and son were Her hospital course was complicated by acute blood loss anemia over chronic anemia. Baseline hgb is 9-10. Hgb 7.4 - 7.7. fecal occult blood test was positive. 08/15: EGD showed large hiatal hernia. Colonoscopy showed stools in entire colon, colonic diverticulosis, 3 polyps that were removed. Her anemia could be from episodes of slow rate bleeding from large hiatal hernia +/- diverticular bleed. She received 1 PRBC for symptomatic anemia. 08/10: CTA of the chest revealed no PE, decreased right pleural effusion, persistent right upper lobe consolidation. No mediastinal lymphadenopathy. 07/06: CTA of the chest revealed no PE, interval worsening of focal consolidation in the right upper lobe since 05/23/2016. 08/10: negative blood culture. 08/13: Bronchoscopy showed atelectasis of RUL. BAL cultures are negative 08/14: completed Aztreonam day 3 and Vancomycin day 4. antiobiotics stopped due to negative BAL cultures. PLAN: tappered dose of prednisone. f/u in pulmonology clinic. Repeat colonoscopy in 3 years. - Time Spent with Patient Total time spent providing and/or coordinating discharge services: - Constitutional Vitals: Temp Pulse Resp BP Pulse Ox 97.7 F 95 18 121/70 95 08/17/16 11:19 08/17/16 11:19 08/17/16 11:19 08/17/16 11:19 08/17/16 11:19 General appearance: Present: cooperative, mild distress, A&O X 3, morbidly obese , pleasant, obese, answers questions appropriately - Eye Eye exam: Present: PERRL, sclera anicteric - ENT ENT exam: Present: mucous membranes moist - Neck Neck exam general surgery: Present: supple, trachea midline. Absent: lymphadenopathy - Respiratory Respiratory exam: Present: decreased breath sounds. Absent: wheezes - Cardiovascular Cardiovascular exam: Present: RRR - GI/Abdominal GI/Abdominal exam: Present: normal bowel sounds, soft. Absent: distended, tenderness - Extremities Exam Extremities exam: Absent: pedal edema - Back Exam Back exam: Absent: CVA tenderness (L), CVA tenderness (R) - Neurological Exam Neurological exam: Present: alert, oriented X3. Absent: facial droop, speech deficit - Skin Skin exam: Present: dry. Absent: rash
--- NOTE | 2016-08-17 15:15 | Physician Discharge Referral ---
ExtendedCare Referral Info Transfer To: SNF Provider in Charge: hemalatha Provider in Charge after Transfer: PCP Institutional Level of Care: Skilled - Diagnosis (1) Acute respiratory failure Status: Acute (2) Acute dyspnea Status: Acute (3) Acute blood loss anemia Status: Acute (4) COPD exacerbation Status: Acute (5) Radiation pneumonitis Status: Chronic (6) Lung consolidation Status: Chronic (7) Anxiety Status: Chronic (8) Lung cancer, upper lobe Status: Chronic (9) Hypertension Status: Chronic - Transfer Medications Prescriptions: LORazepam [Ativan] 1 mg PO TID PRN #90 tablet PRN Reason: Anxiety PredniSONE 40 mg PO AD #40 tablet Home Medications: Sucralfate [Carafate] 1 gm PO QIDAC #120 tablet 03/07/16 [Rx] Omeprazole [PriLOSEC] 40 mg PO DAILY 04/20/16 [History] Citalopram [CeleXA] 20 mg PO DAILY #30 tablet 07/10/16 [Rx] Folic Acid 1 mg PO DAILY #30 tablet 08/03/16 [Rx] Ferrous Sulfate [Iron] 325 mg PO TID 08/10/16 [History] Pantoprazole Sodium [Protonix] 40 mg PO DAILY 08/10/16 [History] PredniSONE [Deltasone] 20 mg PO BID 08/10/16 [History] Albuterol Neb [Proventil Neb] 2.5 mg IH [id number] PRN #0 inhsol 08/17/16 [Rx] GuaiFENesin ER [Mucinex] 600 mg PO BID PRN #0 tbbp.12hr 08/17/16 [Rx] Ipratropium/Albuterol Neb [Duoneb] 3 ml IH [id number] inhsol 08/17/16 [Rx] LORazepam [Ativan] 1 mg PO TID PRN #90 tablet 08/17/16 [Rx] Losartan [Cozaar] 25 mg PO DAILY tablet 08/17/16 [Rx] Metoprolol XL (24 HR) Succ [Toprol Xl] 100 mg PO DAILY tab.er.24h 08/17/16 [Rx] PredniSONE 40 mg PO AD #40 tablet 08/17/16 [Rx] Allergies/Adverse Reactions: Allergies bupropion [From Wellbutrin] Allergy (Verified 05/15/16 08:54) Hives Hydromorphone [From Dilaudid] Allergy (Verified 05/15/16 08:54) Hives Penicillins Allergy (Verified 05/15/16 08:54) Hives phenytoin [From Dilantin] Allergy (Verified 05/15/16 08:54) Unresponsive acetaminophen [From Percocet] Adverse Reaction (Verified 05/15/16 08:54) Hallucinating Oxycodone [From Percocet] Adverse Reaction (Verified 05/15/16 08:54) Hallucinating - Respiratory Orders Oxygen / L per min (4) Smoking Cessation: Smoking cessation has been advised. For more information, call the [place] Tobacco Quit Line at 1-461-QDZV-NOW. - Lab Orders Lab Orders: Other (include drug levels w/frequency) - Advance Directives Code Status: Full Code - Mobility Orders Ambulate - Rehabiliation Orders Rehab Potential: Fair Rehab Orders: Evaluation for Physical Therapy, Evaluation for Occupational Therapy - Treatments Skin tear care topically daily PRN per policy - Diet Orders No Added Salt (MARIE), Cardiac CERTIFICATION: I certify that the transfer of the above named patient to an Extended Care Facility is necessary for the continuing treatment of the diagnosis listed. The above information is true and accurate reflection of patient's current condition. Confidential - Redisclosure prohibited without a patient's written consent.
[2016-08-17] MEDS ORDERED: *HR* Propofol 200 MG/20 ML VIAL IVP ONE (16:59)
[2016-08-17] MEDS ORDERED: Lidocaine -MPF 2% 5 ML VIAL INFILT ONE (16:59)
== END 2016-08-17 17:00 | DRG 190 ==
LOC: 2ANU 09:08 → EMEROO 09:08 → 2ANU 13:38 → SUATTDRO 08-12 10:55
PROVIDERS: ADMIT Internal Medicine; ATTEND Internal Medicine
PROC: ENDOBRF (2016-08-13 17:30)

== ENCOUNTER 2016-08-22 14:31 | Inpatient (IN) ==
[2016-08-22] MEDS ORDERED: methylPREDNISolone 125 MG/2 ML VIAL IVP ONE (14:35)
[2016-08-22] MEDS ORDERED: Ipratropium/Albuterol Neb 3 ML IH ONE (14:35)
--- NOTE | 2016-08-22 14:44 | Emergency Department Note ---
Disposition Clinical Impression: COPD exacerbation Pneumonia Qualifiers: Pneumonia type: due to unspecified organism Laterality: unspecified laterality Lung location: unspecified part of lung Qualified Code(s): J18.9 - Pneumonia, unspecified organism Disposition: Admitted As Inpatient Condition: Fair Referrals: Paulo Kim MD [Primary Care Provider] - Forms: ED Satisfaction Letter Time of Disposition: 17:10 SOB HPI - General Chief Complaint: ED Shortness of Breath/Dyspnea Stated Complaint: SOB Time Seen by Provider: 08/22/16 14:32 Source: patient, EMS Mode of arrival: EMS Limitations: no limitations Nursing Notes Reviewed: Yes Vital Signs Reviewed: Yes - History of Present Illness 80-year-old with a history of adenocarcinoma of the lungs stage III comes in with increasing shortness of breath. The patient has completed her therapy and chemotherapy and has gotten progressively worse with respect to her shortness of breath. Pt Subjective Complaint: shortness of breath, cough Onset (ago): day(s) Context: other (History of lung cancer) Severity: moderate Consistency/Duration: constant Improves with: nothing Worsens with: exertion Known history of: COPD, other (Lung cancer) Associated symptoms: Reports: cough Treatment prior to arrival: bronchodilator Cough Description: Involuntary Cough Frequency: Intermittent - Related Data Home Medications Medication Instructions Recorded Confirmed Omeprazole [PriLOSEC] 40 mg PO DAILY 04/20/16 08/10/16 Ferrous Sulfate [Iron] 325 mg PO TID 08/10/16 08/10/16 Pantoprazole Sodium [Protonix] 40 mg PO DAILY 08/10/16 08/10/16 PredniSONE [Deltasone] 20 mg PO BID 08/10/16 08/10/16 Previous Rx's Medication Instructions Recorded Sucralfate [Carafate] 1 gm PO QIDAC #120 tablet 03/07/16 Citalopram [CeleXA] 20 mg PO DAILY #30 tablet 07/10/16 Folic Acid 1 mg PO DAILY #30 tablet 08/03/16 Albuterol Neb [Proventil Neb] 2.5 mg IH [id number] PRN #0 inhsol 08/17/16 GuaiFENesin ER [Mucinex] 600 mg PO BID PRN #0 tbbp.12hr 08/17/16 Ipratropium/Albuterol Neb [Duoneb] 3 ml IH [id number] inhsol 08/17/16 LORazepam [Ativan] 1 mg PO TID PRN #90 tablet 08/17/16 Losartan [Cozaar] 25 mg PO DAILY tablet 08/17/16 Metoprolol XL (24 HR) Succ [Toprol 100 mg PO DAILY tab.er.24h 08/17/16 Xl] PredniSONE 40 mg PO AD #40 tablet 08/17/16 Calcium Carbonate/Vitamin D3 2 each PO DAILY #30 tablet 08/21/16 [Calcium 600-Vit D3 400 Tablet] LORazepam [Ativan] 1.5 mg PO ONCE #1 tablet 08/21/16 Allergies Allergy/AdvReac Type Severity Reaction Status Date / Time bupropion [From Wellbutrin] Allergy Hives Verified 05/15/16 08:54 Hydromorphone [From Dilaudid] Allergy Hives Verified 05/15/16 08:54 Penicillins Allergy Hives Verified 05/15/16 08:54 phenytoin [From Dilantin] Allergy Unresponsiv Verified 05/15/16 08:54 e acetaminophen [From Percocet] AdvReac Hallucinati Verified 05/15/16 08:54 ng Oxycodone [From Percocet] AdvReac Hallucinati Verified 05/15/16 08:54 ng Constitutional: Denies: fever, chills, weakness, weight change Eyes: Denies: eye pain, eye discharge, vision change ENT ED: Denies: ear pain, throat pain, dental pain, hearing loss, epistaxis, congestion, dysphagia Cardiovascular: Denies: chest pain, palpitations, dyspnea on exertion, edema, syncope Respiratory: Reports: cough, dyspnea, wheezes. Denies: hemoptysis, stridor Gastrointestinal: Denies: abdominal pain, nausea, vomiting, diarrhea, constipation, hematemesis, melena, hematochezia Genitourinary: Denies: dysuria, frequency, hematuria, discharge Musculoskeletal: Denies: back pain, neck pain, arthralgia, myalgia Integumentary: Denies: rash, abrasion, lesions Neurological: Denies: headache, weakness, numbness, paresthesias, confusion, abnormal gait, vertigo Psychiatric: Denies: anxiety, depression, suicidal thoughts, homicidal thoughts , auditory hallucinations, visual hallucinations Endocrine: Denies: fatigue Hematological/Lymphatic: Denies: easy bleeding, easy bruising Allergic/Immunologic: Denies: facial swelling, urticaria Past Medical History - Past Medical History Medical history: Reports: cancer, hypertension, migraine, other Surgical history: Reports: cancer surgery, cholecystectomy, hysterectomy, orthopedic, other Psychiatric history: Reports: anxiety, depression - Social History Smoking Status: Never smoker Smokeless Tobacco Status: No Alcohol use: Reports: none Drug use: Reports: none Physical Exam - General Limitations: no limitations General appearance: alert, in distress - Head Head exam: atraumatic, normocephalic, normal inspection - Eye Eye exam: Present: normal appearance, PERRL, EOMI - ENT ENT exam: normal exam, normal oropharynx, mucous membranes moist - Neck Neck exam: Present: normal inspection, full ROM, trachea midline - Chest Chest inspection: Present: symmetric chest wall rise - Respiratory Respiratory exam: Present: respiratory distress, wheezes, accessory muscle use, prolonged expiratory phase - Cardiovascular Cardiovascular exam: Present: regular rate, normal rhythm, normal heart sounds - Abdominal Exam Abdominal exam: Present: soft, Non-Tender. Absent: tenderness, distention, guarding, rebound, rigidity - Extremities Exam Extremities exam: Present: normal inspection, full ROM. Absent: tenderness, pedal edema - Expanded Lower Extremity Exam Neurovascular/Tendon exam: Absent: motor deficit, sensory deficit, tendon deficit Gait: observed and normal - Back Exam Back exam: Present: normal inspection, full ROM. Absent: tenderness - Neurological Exam Neurological exam: Present: alert, oriented X3 - Psychiatric Psychiatric exam: Present: normal affect, normal mood - Skin Skin exam: Present: warm, dry, intact, normal color Course - Consultations Consultation #1: Discussed with , admit. Time: 14:51 Vital Signs Temperature 97.3 F L 08/22/16 14:33 Pulse Rate 110 08/22/16 14:33 Respiratory Rate 28 08/22/16 14:33 Blood Pressure 120/77 08/22/16 14:33 O2 Sat by Pulse Oximetry 92 L 08/22/16 14:33 Temperature 97.3 F L 08/22/16 14:33 Pulse Rate 101 08/22/16 16:48 Respiratory Rate 22 08/22/16 16:48 Blood Pressure 135/80 08/22/16 16:04 O2 Sat by Pulse Oximetry 92 L 08/22/16 16:48 Oxygen Delivery Oxygen Delivery Nasal Cannula Shortness of Breath/Dyspnea - Lab Data Lab results reviewed: Yes I reviewed the patient's lab results. Result diagrams: 08/22/16 15:13 08/22/16 15:13 Lab Results 08/22/16 08/22/16 08/22/16 Range/Units 15:05 15:13 15:13 WBC 5.9 (4.3-11.1) K/mcL RBC 3.46 L (3.82-4.97) M/mcL Hgb 8.9 L (11.5-15.4) g/dL Hct 29.0 L (35.3-44.9) % MCV 83.8 (83.0-100.0) fL MCH 25.7 L (28.0-33.3) pg MCHC 30.7 L (31.6-35.5) g/dL RDW 19.9 H (11.5-14.5) % Plt Count 186 (140-400) K/mcL MPV 8.4 L (9.4-12.4) fL Immature Gran % 0.5 (0-4) % Seg Neutrophils % 92.4 % Lymphocytes % 3.2 % Monocytes % 3.7 % Eosinophils % 0.2 % Basophils % 0.0 % Neutrophils # 5.5 (1.6-8.9) K/mcL Lymphocytes # 0.2 L (0.6-4.6) K/mcL Monocytes # 0.2 (0.0-1.3) K/mcL Eosinophils # 0.0 (0.0-0.6) K/mcL Basophils # 0.0 (0.0-0.2) K/mcL Immature Plt Fraction 1.5 (1.1-6.1) % PT 11.0 (9.4-12.1) Seconds INR 1.0 APTT 25.7 L (26.0-36.0) Seconds ABG pH 7.50 H (7.32-7.45) pH Units ABG pCO2 42 (35-45) mmHg ABG pO2 49 L* (85-104) mmHg ABG HCO3 32.8 H (21-27) mEQ/L ABG Total CO2 34.1 H (20-26) mEq/L ABG O2 Saturation 88 L (95-98) % ABG Base Excess 8.8 H (-2.0 to 3.0) mEq/L Blood Gas Modality N/C Inspired O2 44 % Sodium (136-145) mEq/L Potassium (3.5-4.5) mEq/L Chloride (98-109) mEq/L Carbon Dioxide (19-29) mEq/L BUN (7-20) mg/dL Creatinine (0.57-1.11) mg/dL Est GFR ( Amer) (> 60) Est GFR (Non-Af Amer) (> 60) BUN/Creatinine Ratio (6-26) Glucose (70-99) mg/dL Calculated Osmolality (280-300) Lactic Acid (0.5-2.2) mmol/L Calcium (8.6-10.8) mg/dL Troponin I (0-0.03) ng/mL B-Natriuretic Peptide (0-100) pg/mL 08/22/16 08/22/16 08/22/16 Range/Units 15:13 15:13 15:13 WBC (4.3-11.1) K/mcL RBC (3.82-4.97) M/mcL Hgb (11.5-15.4) g/dL Hct (35.3-44.9) % MCV (83.0-100.0) fL MCH (28.0-33.3) pg MCHC (31.6-35.5) g/dL RDW (11.5-14.5) % Plt Count (140-400) K/mcL MPV (9.4-12.4) fL Immature Gran % (0-4) % Seg Neutrophils % % Lymphocytes % % Monocytes % % Eosinophils % % Basophils % % Neutrophils # (1.6-8.9) K/mcL Lymphocytes # (0.6-4.6) K/mcL Monocytes # (0.0-1.3) K/mcL Eosinophils # (0.0-0.6) K/mcL Basophils # (0.0-0.2) K/mcL Immature Plt Fraction (1.1-6.1) % PT (9.4-12.1) Seconds INR APTT (26.0-36.0) Seconds ABG pH (7.32-7.45) pH Units ABG pCO2 (35-45) mmHg ABG pO2 (85-104) mmHg ABG HCO3 (21-27) mEQ/L ABG Total CO2 (20-26) mEq/L ABG O2 Saturation (95-98) % ABG Base Excess (-2.0 to 3.0) mEq/L Blood Gas Modality Inspired O2 % Sodium 134 L (136-145) mEq/L Potassium 4.5 (3.5-4.5) mEq/L Chloride 98 (98-109) mEq/L Carbon Dioxide 30 H (19-29) mEq/L BUN 19 (7-20) mg/dL Creatinine 0.96 (0.57-1.11) mg/dL Est GFR ( Amer) > 60 (> 60) Est GFR (Non-Af Amer) 56 L (> 60) BUN/Creatinine Ratio 20 (6-26) Glucose 130 H (70-99) mg/dL Calculated Osmolality 282 (280-300) Lactic Acid 0.9 (0.5-2.2) mmol/L Calcium 8.0 L (8.6-10.8) mg/dL Troponin I 0.02 (0-0.03) ng/mL B-Natriuretic Peptide (0-100) pg/mL 08/22/16 Range/Units 15:13 WBC (4.3-11.1) K/mcL RBC (3.82-4.97) M/mcL Hgb (11.5-15.4) g/dL Hct (35.3-44.9) % MCV (83.0-100.0) fL MCH (28.0-33.3) pg MCHC (31.6-35.5) g/dL RDW (11.5-14.5) % Plt Count (140-400) K/mcL MPV (9.4-12.4) fL Immature Gran % (0-4) % Seg Neutrophils % % Lymphocytes % % Monocytes % % Eosinophils % % Basophils % % Neutrophils # (1.6-8.9) K/mcL Lymphocytes # (0.6-4.6) K/mcL Monocytes # (0.0-1.3) K/mcL Eosinophils # (0.0-0.6) K/mcL Basophils # (0.0-0.2) K/mcL Immature Plt Fraction (1.1-6.1) % PT (9.4-12.1) Seconds INR APTT (26.0-36.0) Seconds ABG pH (7.32-7.45) pH Units ABG pCO2 (35-45) mmHg ABG pO2 (85-104) mmHg ABG HCO3 (21-27) mEQ/L ABG Total CO2 (20-26) mEq/L ABG O2 Saturation (95-98) % ABG Base Excess (-2.0 to 3.0) mEq/L Blood Gas Modality Inspired O2 % Sodium (136-145) mEq/L Potassium (3.5-4.5) mEq/L Chloride (98-109) mEq/L Carbon Dioxide (19-29) mEq/L BUN (7-20) mg/dL Creatinine (0.57-1.11) mg/dL Est GFR ( Amer) (> 60) Est GFR (Non-Af Amer) (> 60) BUN/Creatinine Ratio (6-26) Glucose (70-99) mg/dL Calculated Osmolality (280-300) Lactic Acid (0.5-2.2) mmol/L Calcium (8.6-10.8) mg/dL Troponin I (0-0.03) ng/mL B-Natriuretic Peptide 62 (0-100) pg/mL - Radiology Data Radiology results reviewed: Yes I reviewed the patient's radiology results. Chest CTA 08/22/16 14:47 IMPRESSION: 1. No acute pulmonary emboli. 2. Stable right hemithorax volume loss with post radiation fibrosis. There is new patchy opacities of the right lung which may represent acute pneumonia. 3. No findings concerning for malignant progression. 4. Stable trace right pleural effusion. Mild progression of mild left pleural effusion with atelectasis. 5. Stable atherosclerosis with 3.8 cm ectasia of the aortic root and aortic root calcifications which may relate to stenosis. D/ / Eugenio Yang MD / Eugenio Yang MD Interpreting Provider: Eugenio Yang MD - EKG Data EKG attestation: Yes I reviewed and interpreted this EKG. EKG shows normal: Reports: sinus rhythm Rate: Reports: tachycardia Rhythm: Reports: NSR Interpretation: Reports: no acute changes
[2016-08-22 15:13] LABS: ABG Base Excess 8.8 mEq/L (-2.0 to 3.0); ABG HCO3 32.8 mEQ/L (21-27); ABG Oxygen Saturation 88 % (95-98); ABG PCO2 42 mmHg (35-45); ABG TCO2 34.1 mEq/L (20-26); Blood Gas FiO2 44 %
[2016-08-22 15:15] LABS: ABG PO2 49 mmHg (85-104)
[2016-08-22 15:24] LABS: Eosinophils % 0.2 %; Hemoglobin 8.9 g/dL (11.5-15.4); Immature Granulocytes % 0.5 % (0-4); Immature Platelets 1.5 % (1.1-6.1); Lymphocytes # 0.2 K/mcL (0.6-4.6); Lymphocytes % 3.2 %; Mean Corpuscular HGB Conc 30.7 g/dL (31.6-35.5); Mean Corpuscular Hemoglobin 25.7 pg (28.0-33.3); Mean Corpuscular Volume 83.8 fL (83.0-100.0); Mean Platelet Volume 8.4 fL (9.4-12.4); Monocytes # 0.2 K/mcL (0.0-1.3); Monocytes % 3.7 %; Platelet Count 186 K/mcL (140-400); Red Blood Count 3.46 M/mcL (3.82-4.97); Red Cell Distribution Width 19.9 % (11.5-14.5); Segmented Neutrophils % 92.4 %
[2016-08-22 15:31] LABS: Activated Partial Thrombo Time 25.7 Seconds (26.0-36.0)
[2016-08-22 15:37] LABS: BUN/Creatinine Ratio 20 (6-26); Blood Urea Nitrogen 19 mg/dL (7-20); Carbon Dioxide 30 mEq/L (19-29); Chloride 98 mEq/L (98-109); Glucose 130 mg/dL (70-99); Osmolality,Calculated 282 (280-300); Potassium 4.5 mEq/L (3.5-4.5); Sodium 134 mEq/L (136-145); eGFR For African Americans > 60 (> 60); eGFR For Non-African Americans 56 (> 60)
[2016-08-22 15:43] LABS: Neutrophils # 5.5 K/mcL (1.6-8.9)
[2016-08-22] MEDS ORDERED: Aztreonam 2,000 MG in D5% in Water (Mini-Bag+) 100 ML IVPB STA (17:07)
[2016-08-22] MEDS ORDERED: Vancomycin 1,000 MG in D5% in Water 250 ML IVPB ONE (17:07)
--- NOTE | 2016-08-22 17:59 | Internal Med History&Physical ---
Date of Encounter: 08/22/16 Time of Encounter: 18:00 Assessment and Plan (1) HCAP (healthcare-associated pneumonia) Current visit: Yes Status: Acute Patient with new infiltrate on CTA, recently admitted to hospital and lives in ECF. Vanc and aztreonam started in ER - Continue aztreonam, add levaquin for atypicals - Consult pulmonary given history of numerous lung issues, appreciate their assistance on guidance regarding CT findings - Scheduled nabs for COPD component - Blood and sputum cultures pending - O2 by nasal cannula (2) COPD exacerbation Current visit: Yes Status: Acute Very wheezy on exam, also component of radiation pneumonitis - Scheduled nebs - Continue PO steroids (3) Anemia Current visit: No Status: Acute Chronic, stable. Recent endoscopies without clear source of bleeding identified. - Monitor daily Hgb Qualifiers: Anemia type: other cause Other causes of anemia: other cause, not classified Qualified Code(s): D64.89 - Other specified anemias (4) Lung cancer, upper lobe Current visit: No Status: Chronic S/p radiation. [facility]s [facility] Qualifiers: Laterality: right Qualified Code(s): C34.11 - Malignant neoplasm of upper lobe, right bronchus or lung (5) Radiation pneumonitis Current visit: No Status: Chronic Secondary to radiation for lung CA - Steroids as above Internal Medicine - H&P: HPI Chief complaint: Shortness of breath, cough Admitted From: Emergency Dept Plans for Post Hospital Care: Transfer [facility] History of present illness: Ms. 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 She was admitted one week ago with worsening shortness of breath, was evaluated by pulmonary and had bronch with BAL which did not show evidence of infection so antibiotics were discontinued and she was discharged back to her ECF on steroids for COPD/radiation pneumonitis. She thinks she was doing okay at her ECF until today when she was noted to be hypoxic and more short of breath so she was sent to the ER. She has been coughing more, but is unable to cough up any sputum. She is short of breath with minimal exertion. She had ABG in the ER which showed pO2 of 40 on her home 4L NC. She notes that she feels better with increased O2 in the ER. CTA showed no evidence of PE, but did show new infiltrates from CT one week ago. Past Med Surg Social Fam HX - Past Medical History Medical history: cancer (Lung, breast), hypertension, migraine, other Psychiatric history: anxiety, depression - Past Surgical History Surgical History: cancer surgery, cholecystectomy, hysterectomy, orthopedic, other - Social History Smoking Status: Never smoker Smokeless Tobacco Status: No Alcohol use: none Drug use: none Current living situation: ECF - Family History Father Living Status: Hx Family Cardiac Disorders: Yes Mother Living Status: Hx Family Cancer: Yes Internal Medicine - H&P: Meds Sucralfate [Carafate] 1 gm PO QIDAC #120 tablet 03/07/16 [Rx] Citalopram [CeleXA] 20 mg PO DAILY #30 tablet 07/10/16 [Rx] Folic Acid 1 mg PO DAILY #30 tablet 08/03/16 [Rx] Ferrous Sulfate [Iron] 325 mg PO TID 08/10/16 [History] Pantoprazole Sodium [Protonix] 40 mg PO DAILY 08/10/16 [History] Albuterol Neb [Proventil Neb] 2.5 mg IH [id number] PRN #0 inhsol 08/17/16 [Rx] Ipratropium/Albuterol Neb [Duoneb] 3 ml IH [id number] inhsol 08/17/16 [Rx] Losartan [Cozaar] 25 mg PO DAILY tablet 08/17/16 [Rx] Cyanocobalamin (Vitamin B-12) [Vitamin B12] 2,000 mcg PO DAILY 08/22/16 [History ] GuaiFENesin ER [Mucinex] 600 mg PO BID PRN 08/22/16 [History] LORazepam [Ativan] 1 mg PO 0700,1500,2300 08/22/16 [History] Metoprolol Succinate 100 mg PO DAILY 08/22/16 [History] Omeprazole Magnesium [Prilosec Otc] 20 mg PO DAILY 08/22/16 [History] Potassium Chloride [K-Tab ER] 20 meq PO DAILY 08/22/16 [History] PredniSONE 40 mg PO TAPER 08/22/16 [History] Allergies bupropion [From Wellbutrin] Allergy (Verified 05/15/16 08:54) Hives Hydromorphone [From Dilaudid] Allergy (Verified 05/15/16 08:54) Hives Penicillins Allergy (Verified 05/15/16 08:54) Hives phenytoin [From Dilantin] Allergy (Verified 05/15/16 08:54) Unresponsive acetaminophen [From Percocet] Adverse Reaction (Verified 05/15/16 08:54) Hallucinating Oxycodone [From Percocet] Adverse Reaction (Verified 05/15/16 08:54) Hallucinating All Systems PM: A 10-system review of systems was performed and is negative for pertinent findings except as documented above in the HPI. - Constitutional Constitutional: weakness, no fever(s) - EENT Eyes: no loss of vision Nose, mouth and throat: no bleeding gums - Cardiovascular Cardiovascular ROS IM: no chest pain - Respiratory Respiratory: cough, dyspnea, dyspnea on exertion, wheezing, chest congestion - Gastrointestinal Gastrointestinal: no abdominal pain, no diarrhea, no nausea, no vomiting - Genitourinary Genitourinary: no urinary frequency, no urinary hesitancy, no urinary incontinence, no urinary urgency - Musculoskeletal Musculoskeletal ROS IM: no muscle cramps - Neurological Neurological ROS: no confusion - Endocrine Endocrine IM: fatigue - Allergic/Immunologic Allergic/Immunologic: wheezing - Constitutional Vitals: Temp Pulse Resp BP Pulse Ox 97.3 F L 102 22 132/68 92 L 08/22/16 14:33 08/22/16 17:31 08/22/16 17:31 08/22/16 17:31 08/22/16 17:31 General appearance: Present: A&O X 3 Exam: Tachypneic, speaking in short sentences - Head Head exam: Present: atraumatic - Eye Eye exam: Present: EOMI, sclera anicteric - ENT ENT exam: Present: mucous membranes moist - Neck Neck exam general surgery: Present: supple - Respiratory Respiratory exam: Present: wheezes Additional comments: Coarse breath sounds in bilateral lower lobes, expiratory wheezes throughout - Cardiovascular Cardiovascular exam: Present: RRR. Absent: diastolic murmur, gallop, rubs, systolic murmur - GI/Abdominal GI/Abdominal exam: Present: normal bowel sounds, soft. Absent: distended, tenderness - Extremities Exam Extremities exam: Absent: pedal edema - Neurological Exam Neurological exam: Present: no focal deficits - Psychiatric Psychiatric exam: Present: normal affect, normal mood - Skin Skin exam: Absent: rash Internal Med - H&P Results - Labs CBC & Chem 7: 08/22/16 15:13 08/22/16 15:13 Labs: Short CBC 08/22/16 Range/Units 15:13 WBC 5.9 (4.3-11.1) K/mcL Hgb 8.9 L (11.5-15.4) g/dL Hct 29.0 L (35.3-44.9) % Plt Count 186 (140-400) K/mcL Neutrophils # 5.5 (1.6-8.9) K/mcL BMP 08/22/16 15:13 Sodium 134 L Potassium 4.5 Chloride 98 Carbon Dioxide 30 H BUN 19 Creatinine 0.96 Glucose 130 H Calcium 8.0 L Cardiac Enzymes 08/22/16 Range/Units 15:13 Troponin I 0.02 (0-0.03) ng/mL - ABG Interpretation ABG results: 08/22/16 15:05 ABG pH 7.50 H ABG pCO2 42 ABG pO2 49 L* ABG HCO3 32.8 H ABG Total CO2 34.1 H ABG O2 Saturation 88 L ABG Base Excess 8.8 H - Impressions ITS Impressions Chest CTA 08/22/16 14:47 IMPRESSION: 1. No acute pulmonary emboli. 2. Stable right hemithorax volume loss with post radiation fibrosis. There are new patchy opacities of the right lung which may represent acute pneumonia. 3. No findings concerning for malignant progression. 4. Stable trace right pleural effusion. Mild progression of mild left pleural effusion with atelectasis. 5. Stable atherosclerosis with 3.8 cm ectasia of the aortic root and aortic root calcifications which may relate to stenosis. D/ / 08/22/2016 17:01:53 Eugenio Yang MD / [facility] Interpreting Provider: Eugenio Yang MD
[2016-08-22] MEDS ORDERED: Albuterol 2.5 MG/3 ML NEBULIZER IH PRN (18:59)
[2016-08-22] MEDS ORDERED: Naloxone 0.4 MG/ML INJ IVP PRN (21:33)
[2016-08-22] MEDS: Ipratropium/Albuterol Neb 3 ML IH SCH (22:27)
[2016-08-22] MEDS: Sucralfate 1 GM TABLET PO SCH (22:42)
[2016-08-22] MEDS: *HR* LORazepam 1 MG TABLET PO PRN (23:34)
[2016-08-23] MEDS: Ipratropium/Albuterol Neb 3 ML IH SCH ×5 (04:24→21:10)
[2016-08-23 05:27] LABS: Hemoglobin 8.8 g/dL (11.5-15.4); Immature Granulocytes % 0.8 % (0-4); Lymphocytes # 0.3 K/mcL (0.6-4.6); Lymphocytes % 8.8 %; Mean Corpuscular HGB Conc 31.4 g/dL (31.6-35.5); Mean Corpuscular Hemoglobin 26.5 pg (28.0-33.3); Mean Corpuscular Volume 84.3 fL (83.0-100.0); Mean Platelet Volume 8.9 fL (9.4-12.4); Monocytes # 0.1 K/mcL (0.0-1.3); Neutrophils # 3.1 K/mcL (1.6-8.9); Platelet Count 149 K/mcL (140-400); Red Blood Count 3.32 M/mcL (3.82-4.97); Red Cell Distribution Width 19.9 % (11.5-14.5); Segmented Neutrophils % 86.4 %
[2016-08-23 05:42] LABS: BUN/Creatinine Ratio 25 (6-26); Blood Urea Nitrogen 19 mg/dL (7-20); Calcium 8.5 mg/dL (8.6-10.8); Carbon Dioxide 29 mEq/L (19-29); Chloride 99 mEq/L (98-109); Glucose 145 mg/dL (70-99); Osmolality,Calculated 285 (280-300); Potassium 4.1 mEq/L (3.5-4.5); Sodium 135 mEq/L (136-145); eGFR For African Americans > 60 (> 60); eGFR For Non-African Americans > 60 (> 60)
[2016-08-23] MEDS ORDERED: *HR* Enoxaparin 30 MG/0.3 ML SYRINGE SQ SCH (06:00)
[2016-08-23] MEDS: Levofloxacin 750 MG/150 ML 750 MG/150 ML BAG IVPB SCH (08:04)
[2016-08-23] MEDS: Cyanocobalamin (B-12) 1,000 MCG TABLET PO SCH (08:05)
[2016-08-23] MEDS: Metoprolol XL (24 HR) Succ 50 MG TAB.ER.24H PO SCH (08:05)
[2016-08-23] MEDS: Sucralfate 1 GM TABLET PO SCH ×4 (08:05→19:49)
[2016-08-23] MEDS: Folic Acid 1 MG TABLET PO SCH (08:05)
[2016-08-23] MEDS: predniSONE 20 MG TABLET PO SCH (08:06)
--- NOTE | 2016-08-23 08:44 | Internal Med Progress Note ---
Date of Encounter: 08/23/16 Time of Encounter: 08:42 - Assessment and plan (1) Influenza A virus present Current Visit: Yes Status: Acute Assessment and plan: continue Tamiflu. IV hydration and supportive care. Supplemental oxygen as needed, currently noted to require high flow oxygen. (2) COPD exacerbation Current Visit: Yes Status: Acute Assessment and plan: Complicated by underlying radiation pneumonitis. Continue empiric antibiotics, Tamiflu, bronchodilators and supplemental oxygen. Continue oral steroids. Taper down FiO2 as needed. Follow-up pulmonology consult. Risk of complications high. (3) HCAP (healthcare-associated pneumonia) Current Visit: Yes Status: Suspected Assessment and plan: More likely viral infection. We will continue antibiotics for 5 days and then stop. Follow-up blood cultures. Supplemental oxygen as needed. (4) Anemia Current Visit: Yes Status: Chronic Qualifiers: Anemia type: unspecified type Qualified Code(s): D64.9 - Anemia, unspecified (5) Hypertension Current Visit: Yes Status: Chronic Qualifiers: Hypertension type: essential hypertension Qualified Code(s): I10 - Essential (primary) hypertension (6) Lung cancer, upper lobe Current Visit: Yes Status: Chronic Qualifiers: Laterality: right Qualified Code(s): C34.11 - Malignant neoplasm of upper lobe, right bronchus or lung (7) Anxiety Current Visit: Yes Status: Chronic (8) Radiation pneumonitis Current Visit: Yes Status: Chronic - Subjective Interval history: Noted to be having breakfast. Labored breathing and short of breath on speaking full sentences; wheezy and rattling/gurgling sounds in upper airways; no chest pain, palpitations, fever/chills. - Constitutional Vitals: Temp Pulse Resp BP Pulse Ox 97.6 F 100 20 151/79 90 L 08/23/16 07:56 08/23/16 07:56 08/23/16 07:56 08/23/16 07:56 08/23/16 07:56 General appearance: Present: mild distress (respiratory), A&O X 3, answers questions appropriately - Head Head exam: Present: atraumatic, normocephalic - Neck Neck exam general surgery: Present: supple, trachea midline. Absent: lymphadenopathy - Respiratory Respiratory exam: Present: rhonchi (rhonchurous coarse breath sounds diffusely, with right upper lung crackles), wheezes (end-expiratory wheezing posteriorly B/ L). Absent: accessory muscle use, rales - Cardiovascular Cardiovascular exam: Present: RRR, +S1, +S2. Absent: diastolic murmur, gallop, rubs, systolic murmur - GI/Abdominal GI/Abdominal exam: Present: normal bowel sounds, soft, no peritoneal signs. Absent: distended, tenderness - Extremities Exam Extremities exam: Present: warm, radial pulses palpable and symetrical. Absent : calf tenderness, cyanotic, pedal edema - Neurological Exam Neurological exam: Present: CN II-XII intact, oriented X3, no focal deficits, strengths equal and symetr throughout (diffusely decreased in B/L LE). Absent: pronater drift, facial droop, speech deficit - Skin Skin exam: Present: dry, intact Internal Medicine: Result - Labs CBC & Chem 7: 08/24/16 04:00 08/24/16 04:00 Labs: Short CBC 08/23/16 Range/Units 04:50 WBC 3.5 L (4.3-11.1) K/mcL Hgb 8.8 L (11.5-15.4) g/dL Hct 28.0 L (35.3-44.9) % Plt Count 149 (140-400) K/mcL Neutrophils # 3.1 (1.6-8.9) K/mcL BMP 08/23/16 04:50 Sodium 135 L Potassium 4.1 Chloride 99 Carbon Dioxide 29 BUN 19 Creatinine 0.77 Glucose 145 H Calcium 8.5 L - ABG Interpretation ABG results: ABG ABG pH 7.50 pH Units (7.32-7.45) H 08/22/16 15:05 ABG pCO2 42 mmHg (35-45) 08/22/16 15:05 ABG pO2 49 mmHg (85-104) L* 08/22/16 15:05 ABG O2 Saturation 88 % (95-98) L 08/22/16 15:05 PT/INR, D-dimer PT 11.0 Seconds (9.4-12.1) 08/22/16 15:13 Consult Discharge Plan - Plan Referrals: Paulo Kim MD [Primary Care Provider] -
--- NOTE | 2016-08-23 08:57 | Electrocardiograph Report ---
[place] [id number] Test Date: 2016-08-22 Pat Name: Sol Irby Department: [id number] Room: [id number] Gender: F [employer]: : 1935 Requested By: Jeison Mena Order Number: [id number] Reading MD: Arnav Ritter MD Measurements Intervals [place] Rate: 105 P: 39 ND: 160 QRS: -44 QRSD: 102 T: 48 QT: 330 QTc: 391 Interpretive Statements SINUS TACHYCARDIA MARKED LEFT AXIS DEVIATION Electronically Signed On 08-23-2016 8:55:42 EST by Arnav Ritter MD
[2016-08-23] MEDS ORDERED: NON-FORMULARY MEDICATION 1 EACH EACH (Pantoprazole Sodium [Protonix] 40 MG) PO SCH (09:00)
[2016-08-23] MEDS: *HR* LORazepam 1 MG TABLET PO PRN ×2 (13:53→19:52)
--- NOTE | 2016-08-23 14:07 | Pulmonology Consult Note ---
Date of Encounter: 08/23/16 Time of Encounter: 11:45 Assessment and Plan (1) Acute respiratory failure Current Visit: No Status: Acute Patient condition deteriorate due to her underlying lung disease and now she has influenza infection, she is on appropriate treatment now and overall prognosis I believe is poor with her recurrent issues with her lungs. Qualifiers: Respiratory failure complication: hypoxia Qualified Code(s): J96.01 - Acute respiratory failure with hypoxia (2) Influenza A virus present Current Visit: Yes Status: Acute Patient is on appropriate treatment and consider to stop antibiotics since this is viral infection (3) Pneumonia Current Visit: Yes Status: Acute Patient on antiviral Qualifiers: Pneumonia type: due to influenza A virus Laterality: unspecified laterality Lung location: unspecified part of lung Qualified Code(s): J09.X1 - Influenza due to identified novel influenza A virus with pneumonia (4) Radiation pneumonitis Current Visit: No Status: Chronic Patient on systemic steroid and it has been long time, I feel a lower dose of prednisone 30-40 mg can be tried. 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 Patient was in the [facility] and she was having worsening of dyspnea and cough and was found to have influenza A and she is was admitted to the hospital. Patient has history of COPD as well and she is on home O2. She has not been feeling good for few months now. Patient denies any chest pain and it has been difficult to cough up any sputum. Patient remain on O2 and she had CTA with no evidence of pulmonary embolism. Past Med Surg Social Fam HX - Past Medical History Medical history: cancer, hypertension, migraine, other Psychiatric history: anxiety, depression - Past Surgical History Surgical History: cancer surgery, cholecystectomy, hysterectomy, orthopedic, other - Social History Smoking Status: Never smoker Smokeless Tobacco Status: No Alcohol use: none Drug use: none - Family History Father Living Status: Hx Family Cardiac Disorders: Yes Mother Living Status: Hx Family Cancer: Yes (Ovarian) Medications and Allergies Sucralfate [Carafate] 1 gm PO [facility] #120 tablet 03/07/16 [Rx] Citalopram [CeleXA] 20 mg PO DAILY #30 tablet 07/10/16 [Rx] Folic Acid 1 mg PO DAILY #30 tablet 08/03/16 [Rx] Ferrous Sulfate [Iron] 325 mg PO TID 08/10/16 [History] Pantoprazole Sodium [Protonix] 40 mg PO DAILY 08/10/16 [History] Albuterol Neb [Proventil Neb] 2.5 mg IH [id number] PRN #0 inhsol 08/17/16 [Rx] Ipratropium/Albuterol Neb [Duoneb] 3 ml IH [id number] inhsol 08/17/16 [Rx] Losartan [Cozaar] 25 mg PO DAILY tablet 08/17/16 [Rx] Cyanocobalamin (Vitamin B-12) [Vitamin B12] 2,000 mcg PO DAILY 08/22/16 [History ] GuaiFENesin ER [Mucinex] 600 mg PO BID PRN 08/22/16 [History] LORazepam [Ativan] 1 mg PO 0700,1500,2300 08/22/16 [History] Metoprolol Succinate 100 mg PO DAILY 08/22/16 [History] Omeprazole Magnesium [Prilosec Otc] 20 mg PO DAILY 08/22/16 [History] Potassium Chloride [K-Tab ER] 20 meq PO DAILY 08/22/16 [History] PredniSONE 40 mg PO TAPER 08/22/16 [History] Allergies bupropion [From Wellbutrin] Allergy (Verified 05/15/16 08:54) Hives Hydromorphone [From Dilaudid] Allergy (Verified 05/15/16 08:54) Hives Penicillins Allergy (Verified 05/15/16 08:54) Hives phenytoin [From Dilantin] Allergy (Verified 05/15/16 08:54) Unresponsive acetaminophen [From Percocet] Adverse Reaction (Verified 05/15/16 08:54) Hallucinating Oxycodone [From Percocet] Adverse Reaction (Verified 05/15/16 08:54) Hallucinating All Systems: A 10-system review of systems was performed and is negative for pertinent findings except as documented above in the HPI. Physical Examination Vital Signs: Vital Signs, Last 4 Hours Temp Pulse Resp BP Pulse Ox 08/23/16 12:16 97.4 F L 106 21 146/102 92 L 08/23/16 11:03 20 90 L General appearance: appears uncomfortable Eyes: nonicteric ENT: oropharynx dry Neck: supple, no lymphadenopathy Effort: mildly labored Inspection: other (abnormal from previous surgery in the right side) Auscultation: bilateral: rhonchi Percussion: bilateral: not dull Cardiovascular: regular rate and rhythm Gastrointestinal: normoactive bowel sounds, non-distended Extremities: edema normal mental status, non-focal exam mood appropriate Results - Laboratory Findings CBC and BMP: 08/23/16 04:50 08/23/16 04:50 ABG ABG pH 7.50 pH Units (7.32-7.45) H 08/22/16 15:05 ABG pCO2 42 mmHg (35-45) 08/22/16 15:05 ABG pO2 49 mmHg (85-104) L* 08/22/16 15:05 ABG O2 Saturation 88 % (95-98) L 08/22/16 15:05 PT/INR, D-dimer PT 11.0 Seconds (9.4-12.1) 08/22/16 15:13 Abnormal lab findings: Abnormal lab results WBC 3.5 K/mcL (4.3-11.1) L 08/23/16 04:50 RBC 3.32 M/mcL (3.82-4.97) L 08/23/16 04:50 Hgb 8.8 g/dL (11.5-15.4) L 08/23/16 04:50 Hct 28.0 % (35.3-44.9) L 08/23/16 04:50 MCH 26.5 pg (28.0-33.3) L 08/23/16 04:50 MCHC 31.4 g/dL (31.6-35.5) L 08/23/16 04:50 RDW 19.9 % (11.5-14.5) H 08/23/16 04:50 MPV 8.9 fL (9.4-12.4) L 08/23/16 04:50 Lymphocytes # 0.3 K/mcL (0.6-4.6) L 08/23/16 04:50 APTT 25.7 Seconds (26.0-36.0) L 08/22/16 15:13 ABG pH 7.50 pH Units (7.32-7.45) H 08/22/16 15:05 ABG pO2 49 mmHg (85-104) L* 08/22/16 15:05 ABG HCO3 32.8 mEQ/L (21-27) H 08/22/16 15:05 ABG Total CO2 34.1 mEq/L (20-26) H 08/22/16 15:05 ABG O2 Saturation 88 % (95-98) L 08/22/16 15:05 ABG Base Excess 8.8 mEq/L (-2.0 to 3.0) H 08/22/16 15:05 Sodium 135 mEq/L (136-145) L 08/23/16 04:50 Glucose 145 mg/dL (70-99) H 08/23/16 04:50 Calcium 8.5 mg/dL (8.6-10.8) L 08/23/16 04:50 - Microbiology Findings Microbiology Findings: Microbiology, Last 48 Hours 08/22/16 22:40 Influenza Types A,B Antigen (JAMISON) - Final Nasopharyngeal - Diagnostic Findings CT scan - chest: report reviewed, image reviewed - Clinical Findings Intake & Output: Intake & Output 08/22/16 08/23/16 08/23/16 23:59 07:59 15:59 Intake Total 350 / 350 300 / 300 360 / 360 Balance 350 / 350 300 / 300 360 / 360 Weight 97.3 kg Consult Discharge Plan - Plan Referrals: Paulo Kim MD [Primary Care Provider] -
[2016-08-23] MEDS: Oseltamivir Phosphate 30 MG CAPSULE PO SCH (19:49)
[2016-08-24 04:33] LABS: Hematocrit 28.6 % (35.3-44.9); Hemoglobin 9.1 g/dL (11.5-15.4); Immature Granulocytes % 0.6 % (0-4); Lymphocytes # 0.4 K/mcL (0.6-4.6); Lymphocytes % 6.2 %; Mean Corpuscular HGB Conc 31.8 g/dL (31.6-35.5); Mean Corpuscular Hemoglobin 26.5 pg (28.0-33.3); Mean Corpuscular Volume 83.1 fL (83.0-100.0); Mean Platelet Volume 9.2 fL (9.4-12.4); Monocytes # 0.3 K/mcL (0.0-1.3); Monocytes % 4.8 %; Neutrophils # 5.6 K/mcL (1.6-8.9); Platelet Count 175 K/mcL (140-400); Red Blood Count 3.44 M/mcL (3.82-4.97); Red Cell Distribution Width 19.6 % (11.5-14.5); Segmented Neutrophils % 88.4 %
[2016-08-24 04:46] LABS: BUN/Creatinine Ratio 28 (6-26); Blood Urea Nitrogen 21 mg/dL (7-20); Carbon Dioxide 28 mEq/L (19-29); Chloride 100 mEq/L (98-109); Glucose 89 mg/dL (70-99); Potassium 4.5 mEq/L (3.5-4.5); Sodium 135 mEq/L (136-145); eGFR For African Americans > 60 (> 60); eGFR For Non-African Americans > 60 (> 60)
[2016-08-24 04:47] LABS: Calcium 8.4 mg/dL (8.6-10.8); Osmolality,Calculated 282 (280-300)
[2016-08-24] MEDS: Ipratropium/Albuterol Neb 3 ML IH SCH ×4 (05:08→22:15)
[2016-08-24] MEDS: *HR* Enoxaparin 40 MG/0.4 ML SYRINGE SQ SCH (06:07)
[2016-08-24] MEDS: Levofloxacin 750 MG/150 ML 750 MG/150 ML BAG IVPB SCH (09:35)
[2016-08-24] MEDS: Cyanocobalamin (B-12) 1,000 MCG TABLET PO SCH (09:36)
[2016-08-24] MEDS: predniSONE 20 MG TABLET PO SCH (09:37)
[2016-08-24] MEDS: Oseltamivir Phosphate 30 MG CAPSULE PO SCH ×2 (09:37→21:51)
[2016-08-24] MEDS: Folic Acid 1 MG TABLET PO SCH (09:37)
[2016-08-24] MEDS: Sucralfate 1 GM TABLET PO SCH ×4 (09:39→21:51)
[2016-08-24] MEDS: Metoprolol XL (24 HR) Succ 50 MG TAB.ER.24H PO SCH (09:39)
--- NOTE | 2016-08-24 09:51 | Pulmonology Progress Note ---
Date of Encounter: 08/24/16 Time of Encounter: 08:15 Assessment and Plan (1) Acute respiratory failure Current Visit: No Status: Acute Patient is feeling slightly better now and can wean off FIO2 Qualifiers: Respiratory failure complication: hypoxia Qualified Code(s): J96.01 - Acute respiratory failure with hypoxia (2) Influenza A virus present Current Visit: Yes Status: Acute Patient on appropriate treatment and if plan to discharge, she can be on oral medication, Tamiflu (3) Pneumonia Current Visit: Yes Status: Acute Patient had bronchoscopy recently and no evidence of bacterial infection. Qualifiers: Pneumonia type: due to influenza A virus Laterality: unspecified laterality Lung location: unspecified part of lung Qualified Code(s): J09.X1 - Influenza due to identified novel influenza A virus with pneumonia (4) Radiation pneumonitis Current Visit: No Status: Chronic Patient on prednisone for long time now and it can be weaned off as outpatient. Subjective Principal diagnosis: Influenza pneumonia Interval history: Patient feeling slightly better now and she is asking when she can go home. Objective PUL Vital signs: Last Vital Signs Temp 98.6 F 08/24/16 07:00 Pulse 99 08/24/16 07:00 Resp 23 08/24/16 07:00 BP 139/89 08/24/16 07:00 Pulse Ox 95 08/24/16 07:00 General appearance: no acute distress Eyes: nonicteric Neck: supple Effort: mildly labored Auscultation: left: diminished breath sounds, right: rhonchi Percussion: bilateral: not dull Cardiovascular: regular rate and rhythm Gastrointestinal: normoactive bowel sounds Extremities: no cyanosis normal mental status, non-focal exam mood appropriate Results - Laboratory Findings CBC and BMP: 08/24/16 04:00 08/24/16 04:00 ABG ABG pH 7.50 pH Units (7.32-7.45) H 08/22/16 15:05 ABG pCO2 42 mmHg (35-45) 08/22/16 15:05 ABG pO2 49 mmHg (85-104) L* 08/22/16 15:05 ABG O2 Saturation 88 % (95-98) L 08/22/16 15:05 PT/INR, D-dimer PT 11.0 Seconds (9.4-12.1) 08/22/16 15:13 Abnormal lab findings: Abnormal lab results RBC 3.44 M/mcL (3.82-4.97) L 08/24/16 04:00 Hgb 9.1 g/dL (11.5-15.4) L 08/24/16 04:00 Hct 28.6 % (35.3-44.9) L 08/24/16 04:00 MCH 26.5 pg (28.0-33.3) L 08/24/16 04:00 RDW 19.6 % (11.5-14.5) H 08/24/16 04:00 MPV 9.2 fL (9.4-12.4) L 08/24/16 04:00 Lymphocytes # 0.4 K/mcL (0.6-4.6) L 08/24/16 04:00 APTT 25.7 Seconds (26.0-36.0) L 08/22/16 15:13 ABG pH 7.50 pH Units (7.32-7.45) H 08/22/16 15:05 ABG pO2 49 mmHg (85-104) L* 08/22/16 15:05 ABG HCO3 32.8 mEQ/L (21-27) H 08/22/16 15:05 ABG Total CO2 34.1 mEq/L (20-26) H 08/22/16 15:05 ABG O2 Saturation 88 % (95-98) L 08/22/16 15:05 ABG Base Excess 8.8 mEq/L (-2.0 to 3.0) H 08/22/16 15:05 Sodium 135 mEq/L (136-145) L 08/24/16 04:00 BUN 21 mg/dL (7-20) H 08/24/16 04:00 BUN/Creatinine Ratio 28 (6-26) H 08/24/16 04:00 Calcium 8.4 mg/dL (8.6-10.8) L 08/24/16 04:00 - Microbiology Findings Microbiology Findings: Microbiology, Last 48 Hours 08/22/16 22:40 Influenza Types A,B Antigen (JAMISON) - Final Nasopharyngeal - Clinical Findings Intake & Output: Intake & Output 08/23/16 08/24/16 08/24/16 23:59 07:59 15:59 Intake Total 0 / 0 240 / 240 Output Total 300 / 300 Balance -300 / -300 240 / 240 Weight 98.5 kg Consult Discharge Plan - Plan Referrals: Paulo Kim MD [Primary Care Provider] -
--- NOTE | 2016-08-24 17:30 | Internal Med Progress Note ---
Date of Encounter: 08/24/16 Time of Encounter: 11:30 - Assessment and plan (1) Influenza A virus present Current Visit: Yes Status: Acute Assessment and plan: continue Tamiflu. IV hydration and supportive care. Supplemental oxygen as needed, currently noted to require high flow oxygen. (2) COPD exacerbation Current Visit: Yes Status: Acute Assessment and plan: Complicated by underlying radiation pneumonitis. Continue empiric antibiotics, Tamiflu, bronchodilators and supplemental oxygen. Continue oral steroids. Pulmonary consult appreciated, agree with current management. Patient is noted to desaturate on speaking and with minimal exertion and appears to be in at least moderate respiratory distress. We will start noninvasive positive pressure ventilation with BiPAP support at this time. Taper down FiO2 as needed. Risk of complications high. (3) HCAP (healthcare-associated pneumonia) Current Visit: Yes Status: Suspected Assessment and plan: More likely viral infection. We will continue antibiotics for 5 days and then stop. Follow-up blood cultures. Supplemental oxygen as needed. (4) Anemia Current Visit: Yes Status: Chronic Qualifiers: Anemia type: unspecified type Qualified Code(s): D64.9 - Anemia, unspecified (5) Hypertension Current Visit: Yes Status: Chronic Qualifiers: Hypertension type: essential hypertension Qualified Code(s): I10 - Essential (primary) hypertension (6) Lung cancer, upper lobe Current Visit: Yes Status: Chronic Qualifiers: Laterality: right Qualified Code(s): C34.11 - Malignant neoplasm of upper lobe, right bronchus or lung (7) Anxiety Current Visit: Yes Status: Chronic (8) Radiation pneumonitis Current Visit: Yes Status: Chronic - Subjective Interval history: Slightly worse shortness of breath. Struggling to speak full sentences, noted to desaturate while speaking. No chest pain or palpitations. - Constitutional Vitals: Temp Pulse Resp BP Pulse Ox 98.6 F 99 21 137/85 96 08/24/16 07:00 08/24/16 15:00 08/24/16 16:13 08/24/16 16:13 08/24/16 16:13 General appearance: Present: mild distress (respiratory), A&O X 3, answers questions appropriately - Respiratory Respiratory exam: Present: rhonchi (Bilateral coarse rhonchorous breath sounds diffusely. Right upper lung zone crackles.). Absent: accessory muscle use, rales, wheezes - Cardiovascular Cardiovascular exam: Present: RRR, +S1, +S2. Absent: diastolic murmur, gallop, rubs, systolic murmur - GI/Abdominal GI/Abdominal exam: Present: normal bowel sounds, soft, no peritoneal signs. Absent: distended, tenderness - Extremities Exam Extremities exam: Present: full ROM, warm, radial pulses palpable and symetrical. Absent: calf tenderness, cyanotic, pedal edema Internal Medicine: Result - Labs CBC & Chem 7: 08/24/16 04:00 08/24/16 04:00 Labs: Short CBC 08/24/16 Range/Units 04:00 WBC 6.3 D (4.3-11.1) K/mcL Hgb 9.1 L (11.5-15.4) g/dL Hct 28.6 L (35.3-44.9) % Plt Count 175 (140-400) K/mcL Neutrophils # 5.6 (1.6-8.9) K/mcL BMP 08/24/16 04:00 Sodium 135 L Potassium 4.5 Chloride 100 Carbon Dioxide 28 BUN 21 H Creatinine 0.75 Glucose 89 Calcium 8.4 L - ABG Interpretation ABG results: ABG ABG pH 7.50 pH Units (7.32-7.45) H 08/22/16 15:05 ABG pCO2 42 mmHg (35-45) 08/22/16 15:05 ABG pO2 49 mmHg (85-104) L* 08/22/16 15:05 ABG O2 Saturation 88 % (95-98) L 08/22/16 15:05 PT/INR, D-dimer PT 11.0 Seconds (9.4-12.1) 08/22/16 15:13 Consult Discharge Plan - Plan Referrals: Paulo Kim MD [Primary Care Provider] -
[2016-08-25] MEDS: Ipratropium/Albuterol Neb 3 ML IH SCH ×4 (04:12→22:09)
[2016-08-25] MEDS: *HR* Enoxaparin 40 MG/0.4 ML SYRINGE SQ SCH (06:19)
[2016-08-25] MEDS: Sucralfate 1 GM TABLET PO SCH ×4 (06:19→21:54)
[2016-08-25] MEDS: *HR* LORazepam 1 MG TABLET PO PRN ×3 (08:28→21:54)
[2016-08-25] MEDS: predniSONE 20 MG TABLET PO SCH (08:28)
[2016-08-25] MEDS: Folic Acid 1 MG TABLET PO SCH (08:28)
[2016-08-25] MEDS: Metoprolol XL (24 HR) Succ 50 MG TAB.ER.24H PO SCH (08:28)
[2016-08-25] MEDS: Cyanocobalamin (B-12) 1,000 MCG TABLET PO SCH (08:29)
[2016-08-25] MEDS: Oseltamivir Phosphate 30 MG CAPSULE PO SCH ×2 (08:29→21:54)
[2016-08-25] MEDS: Levofloxacin 750 MG/150 ML 750 MG/150 ML BAG IVPB SCH (08:29)
--- NOTE | 2016-08-25 09:49 | Pulmonology Progress Note ---
Date of Encounter: 08/25/16 Time of Encounter: 09:15 Assessment and Plan (1) Acute respiratory failure Current Visit: No Status: Acute Patient is feeling slightly better now and can wean off FIO2 3/4 Patient has underlying pulmonary disease and it is difficult situation with her having pneumonia. Overall she is doing slightly better. Qualifiers: Respiratory failure complication: hypoxia Qualified Code(s): J96.01 - Acute respiratory failure with hypoxia (2) Influenza A virus present Current Visit: Yes Status: Acute Patient on appropriate treatment and if plan to discharge, she can be on oral medication, Tamiflu 3/4 Patient on appropriate treatment (3) Pneumonia Current Visit: Yes Status: Acute Patient had bronchoscopy recently and no evidence of bacterial infection. Qualifiers: Pneumonia type: due to influenza A virus Laterality: unspecified laterality Lung location: unspecified part of lung Qualified Code(s): J09.X1 - Influenza due to identified novel influenza A virus with pneumonia (4) Radiation pneumonitis Current Visit: No Status: Chronic Patient on prednisone for long time now and it can be weaned off as outpatient. 3/4 same recommendations. Please call for any questions. Subjective Principal diagnosis: Influenza pneumonia Interval history: Patient feeling slightly better now and she is asking when she can go home. 3/4 Son at the bedside and feels his mother looks better than when she came in and she still have dyspnea, but improving according to patient. Objective PUL Vital signs: Last Vital Signs Temp 97.7 F 08/25/16 06:59 Pulse 92 08/25/16 06:59 Resp 18 08/25/16 06:59 BP 146/77 08/25/16 06:59 Pulse Ox 93 L 08/25/16 08:40 General appearance: appears uncomfortable ENT: oropharynx moist Neck: supple Effort: mildly labored Auscultation: right: rhonchi, bilateral: diminished breath sounds Percussion: bilateral: not dull Cardiovascular: regular rate and rhythm Gastrointestinal: normoactive bowel sounds Extremities: no cyanosis normal mental status, non-focal exam anxious Results - Laboratory Findings CBC and BMP: 08/24/16 04:00 08/24/16 04:00 ABG ABG pH 7.50 pH Units (7.32-7.45) H 08/22/16 15:05 ABG pCO2 42 mmHg (35-45) 08/22/16 15:05 ABG pO2 49 mmHg (85-104) L* 08/22/16 15:05 ABG O2 Saturation 88 % (95-98) L 08/22/16 15:05 PT/INR, D-dimer PT 11.0 Seconds (9.4-12.1) 08/22/16 15:13 Abnormal lab findings: Abnormal lab results RBC 3.44 M/mcL (3.82-4.97) L 08/24/16 04:00 Hgb 9.1 g/dL (11.5-15.4) L 08/24/16 04:00 Hct 28.6 % (35.3-44.9) L 08/24/16 04:00 MCH 26.5 pg (28.0-33.3) L 08/24/16 04:00 RDW 19.6 % (11.5-14.5) H 08/24/16 04:00 MPV 9.2 fL (9.4-12.4) L 08/24/16 04:00 Lymphocytes # 0.4 K/mcL (0.6-4.6) L 08/24/16 04:00 APTT 25.7 Seconds (26.0-36.0) L 08/22/16 15:13 ABG pH 7.50 pH Units (7.32-7.45) H 08/22/16 15:05 ABG pO2 49 mmHg (85-104) L* 08/22/16 15:05 ABG HCO3 32.8 mEQ/L (21-27) H 08/22/16 15:05 ABG Total CO2 34.1 mEq/L (20-26) H 08/22/16 15:05 ABG O2 Saturation 88 % (95-98) L 08/22/16 15:05 ABG Base Excess 8.8 mEq/L (-2.0 to 3.0) H 08/22/16 15:05 Sodium 135 mEq/L (136-145) L 08/24/16 04:00 BUN 21 mg/dL (7-20) H 08/24/16 04:00 BUN/Creatinine Ratio 28 (6-26) H 08/24/16 04:00 Calcium 8.4 mg/dL (8.6-10.8) L 08/24/16 04:00 - Clinical Findings Intake & Output: Intake & Output 08/24/16 08/25/16 08/25/16 23:59 07:59 15:59 Intake Total 150 / 150 Balance 150 / 150 Weight 100 kg Consult Discharge Plan - Plan Referrals: Paulo Kim MD [Primary Care Provider] -
--- NOTE | 2016-08-25 13:07 | Internal Med Progress Note ---
Date of Encounter: 08/25/16 Time of Encounter: 13:04 - Assessment and plan (1) Acute on chronic respiratory failure Current Visit: Yes Status: Acute Assessment and plan: Due to influenza, underlying COPD and radiation pneumonitis. Continue current treatment and wean down FiO2 as tolerated. Qualifiers: Respiratory failure complication: hypoxia Qualified Code(s): J96.21 - Acute and chronic respiratory failure with hypoxia (2) Influenza A virus present Current Visit: Yes Status: Acute Assessment and plan: continue Tamiflu. Will complete 5 days of antibiotics. Pulmonary follow-up appreciated. (3) COPD exacerbation Current Visit: Yes Status: Acute Assessment and plan: Complicated by underlying radiation pneumonitis. Continue empiric antibiotics, Tamiflu, bronchodilators and supplemental oxygen. Taper down FiO2 as needed. Continues to require intermittent BiPAP and is noted to be on 10 L/m high flow oxygen via nasal cannula. Continue oral steroids. (4) HCAP (healthcare-associated pneumonia) Current Visit: Yes Status: Suspected Assessment and plan: Less likely. (5) Anemia Current Visit: Yes Status: Chronic Qualifiers: Anemia type: unspecified type Qualified Code(s): D64.9 - Anemia, unspecified (6) Hypertension Current Visit: Yes Status: Chronic Assessment and plan: Blood pressure noted to be well controlled. Continue home medications. Qualifiers: Hypertension type: essential hypertension Qualified Code(s): I10 - Essential (primary) hypertension (7) Lung cancer, upper lobe Current Visit: Yes Status: Chronic Assessment and plan: Follows with oncology as outpatient. Received radiation treatment and developed radiation pneumonitis. Qualifiers: Laterality: right Qualified Code(s): C34.11 - Malignant neoplasm of upper lobe, right bronchus or lung (8) Anxiety Current Visit: Yes Status: Chronic (9) Radiation pneumonitis Current Visit: Yes Status: Chronic Assessment and plan: Pulmonary consult appreciated. Continue PO steroids and taper off as outpatient; - Subjective Interval history: Feels better today; has been on BiPAP throughout last night and is currently on high-flow NC; no chest pain and has intermittent SOB; - Constitutional Vitals: Temp Pulse Resp BP Pulse Ox 97.7 F 84 16 137/70 96 08/25/16 11:25 08/25/16 11:25 08/25/16 11:25 08/25/16 11:25 08/25/16 11:25 General appearance: Present: A&O X 3, answers questions appropriately - Respiratory Respiratory exam: Present: rhonchi (improving rhonchi B/L), wheezes (Right upper lung zone with coarse breath sounds and wheezing). Absent: accessory muscle use, rales Internal Medicine: Result - Labs CBC & Chem 7: 08/24/16 04:00 08/24/16 04:00 - ABG Interpretation ABG results: ABG ABG pH 7.50 pH Units (7.32-7.45) H 08/22/16 15:05 ABG pCO2 42 mmHg (35-45) 08/22/16 15:05 ABG pO2 49 mmHg (85-104) L* 08/22/16 15:05 ABG O2 Saturation 88 % (95-98) L 08/22/16 15:05 PT/INR, D-dimer PT 11.0 Seconds (9.4-12.1) 08/22/16 15:13 Consult Discharge Plan - Plan Referrals: Paulo Kim MD [Primary Care Provider] -
[2016-08-26] MEDS: Ipratropium/Albuterol Neb 3 ML IH SCH ×4 (04:12→22:43)
[2016-08-26] MEDS: *HR* Enoxaparin 40 MG/0.4 ML SYRINGE SQ SCH (06:13)
[2016-08-26] MEDS: *HR* LORazepam 1 MG TABLET PO PRN ×3 (06:13→22:16)
[2016-08-26] MEDS: Metoprolol XL (24 HR) Succ 50 MG TAB.ER.24H PO SCH (08:25)
[2016-08-26] MEDS: Sucralfate 1 GM TABLET PO SCH ×4 (08:25→22:16)
[2016-08-26] MEDS: levoFLOXacin 500 MG TABLET PO SCH (08:26)
[2016-08-26] MEDS: Cyanocobalamin (B-12) 1,000 MCG TABLET PO SCH (08:26)
[2016-08-26] MEDS: Oseltamivir Phosphate 30 MG CAPSULE PO SCH ×2 (08:26→22:16)
[2016-08-26] MEDS: predniSONE 20 MG TABLET PO SCH (08:26)
[2016-08-26] MEDS: Folic Acid 1 MG TABLET PO SCH (08:26)
--- NOTE | 2016-08-26 10:41 | Pulmonology Progress Note ---
Date of Encounter: 08/26/16 Time of Encounter: 09:45 Assessment and Plan (1) Acute respiratory failure Current Visit: No Status: Acute Patient is feeling slightly better now and can wean off FIO2 3/ Patient has underlying pulmonary disease and it is difficult situation with her having pneumonia. Overall she is doing slightly better. 3 clinically patient is feeling better and hopefully she remained stable to be transferred back to her resident, she wants to go back and she understand she needs to be stable enough before she is discharged from the hospital, otherwise she will come back. Qualifiers: Respiratory failure complication: hypoxia Qualified Code(s): J96.01 - Acute respiratory failure with hypoxia (2) Influenza A virus present Current Visit: Yes Status: Acute Patient on appropriate treatment and if plan to discharge, she can be on oral medication, Tamiflu 3/ Patient on appropriate treatment 3 I feel patient is responding to treatment. (3) Pneumonia Current Visit: Yes Status: Acute Patient had bronchoscopy recently and no evidence of bacterial infection. Qualifiers: Pneumonia type: due to influenza A virus Laterality: unspecified laterality Lung location: unspecified part of lung Qualified Code(s): J09.X1 - Influenza due to identified novel influenza A virus with pneumonia (4) Radiation pneumonitis Current Visit: Yes Status: Chronic Patient on prednisone for long time now and it can be weaned off as outpatient. 08/25 same recommendations. Please call for any questions. 08/26 Will lower prednsione dose Subjective Principal diagnosis: Influenza pneumonia Interval history: Patient feeling slightly better now and she is asking when she can go home. 3/ Son at the bedside and feels his mother looks better than when she came in and she still have dyspnea, but improving according to patient. 08/26 patient thinks her breathing is improving and reports no complaints Objective PUL Vital signs: Last Vital Signs Temp 97.5 F L 08/26/16 07:28 Pulse 89 08/26/16 07:28 Resp 20 08/26/16 09:39 BP 171/84 08/26/16 07:28 Pulse Ox 94 L 08/26/16 09:39 General appearance: no acute distress Eyes: nonicteric ENT: oropharynx dry Neck: supple Effort: mildly labored (When she is talking) Auscultation: left: clear, right: diminished breath sounds, rhonchi Cardiovascular: regular rate and rhythm Gastrointestinal: normoactive bowel sounds Extremities: no cyanosis normal mental status, non-focal exam mood appropriate Results - Laboratory Findings CBC and BMP: 08/24/16 04:00 08/24/16 04:00 ABG ABG pH 7.50 pH Units (7.32-7.45) H 08/22/16 15:05 ABG pCO2 42 mmHg (35-45) 08/22/16 15:05 ABG pO2 49 mmHg (85-104) L* 08/22/16 15:05 ABG O2 Saturation 88 % (95-98) L 08/22/16 15:05 PT/INR, D-dimer PT 11.0 Seconds (9.4-12.1) 08/22/16 15:13 Abnormal lab findings: Abnormal lab results RBC 3.44 M/mcL (3.82-4.97) L 08/24/16 04:00 Hgb 9.1 g/dL (11.5-15.4) L 08/24/16 04:00 Hct 28.6 % (35.3-44.9) L 08/24/16 04:00 MCH 26.5 pg (28.0-33.3) L 08/24/16 04:00 RDW 19.6 % (11.5-14.5) H 08/24/16 04:00 MPV 9.2 fL (9.4-12.4) L 08/24/16 04:00 Lymphocytes # 0.4 K/mcL (0.6-4.6) L 08/24/16 04:00 APTT 25.7 Seconds (26.0-36.0) L 08/22/16 15:13 ABG pH 7.50 pH Units (7.32-7.45) H 08/22/16 15:05 ABG pO2 49 mmHg (85-104) L* 08/22/16 15:05 ABG HCO3 32.8 mEQ/L (21-27) H 08/22/16 15:05 ABG Total CO2 34.1 mEq/L (20-26) H 08/22/16 15:05 ABG O2 Saturation 88 % (95-98) L 08/22/16 15:05 ABG Base Excess 8.8 mEq/L (-2.0 to 3.0) H 08/22/16 15:05 Sodium 135 mEq/L (136-145) L 08/24/16 04:00 BUN 21 mg/dL (7-20) H 08/24/16 04:00 BUN/Creatinine Ratio 28 (6-26) H 08/24/16 04:00 Calcium 8.4 mg/dL (8.6-10.8) L 08/24/16 04:00 - Clinical Findings Intake & Output: Intake & Output 08/25/16 08/26/16 08/26/16 23:59 07:59 15:59 Intake Total 100 / 100 390 / 390 Output Total 500 / 500 Balance -400 / -400 390 / 390 Weight 100 kg Consult Discharge Plan - Plan Referrals: Paulo Kim MD [Primary Care Provider] -
--- NOTE | 2016-08-26 12:11 | Internal Med Progress Note ---
Date of Encounter: 08/26/16 Time of Encounter: 12:09 - Assessment and plan (1) Acute on chronic respiratory failure Current Visit: Yes Status: Acute Assessment and plan: Due to influenza, underlying COPD and radiation pneumonitis. Continue current treatment and wean down FiO2 as tolerated. Qualifiers: Respiratory failure complication: hypoxia Qualified Code(s): J96.21 - Acute and chronic respiratory failure with hypoxia (2) Influenza A virus present Current Visit: Yes Status: Acute Assessment and plan: continue Tamiflu. Will complete 5 days of antibiotics. Pulmonary follow-up appreciated. (3) COPD exacerbation Current Visit: Yes Status: Acute Assessment and plan: Complicated by underlying radiation pneumonitis. Continue empiric antibiotics, Tamiflu, bronchodilators and supplemental oxygen. Taper down FiO2 as needed. Continues to require nocturnal BiPAP and is noted to be on 9 L/m high flow oxygen via nasal cannula. Continue oral steroids, tapered down to 40 mg by mouth prednisone daily per pulmonology. (4) HCAP (healthcare-associated pneumonia) Current Visit: Yes Status: Suspected (5) Anemia Current Visit: Yes Status: Chronic Qualifiers: Anemia type: unspecified type Qualified Code(s): D64.9 - Anemia, unspecified (6) Hypertension Current Visit: Yes Status: Chronic Assessment and plan: Blood pressure noted to be well controlled. Continue home medications. Qualifiers: Hypertension type: essential hypertension Qualified Code(s): I10 - Essential (primary) hypertension (7) Lung cancer, upper lobe Current Visit: Yes Status: Chronic Qualifiers: Laterality: right Qualified Code(s): C34.11 - Malignant neoplasm of upper lobe, right bronchus or lung (8) Anxiety Current Visit: Yes Status: Chronic (9) Radiation pneumonitis Current Visit: Yes Status: Chronic Assessment and plan: Pulmonary consult appreciated. Continue PO steroids and taper off as outpatient; - Subjective Interval history: Noted to be sitting up in chair, having lunch. Continues to have some shortness of breath and still requires 9 L/m oxygen via nasal cannula. Has required BiPAP support overnight. - Constitutional Vitals: Temp Pulse Resp BP Pulse Ox 97.2 F L 92 18 150/83 92 L 08/26/16 10:59 08/26/16 10:59 08/26/16 10:59 08/26/16 10:59 08/26/16 10:59 General appearance: Present: A&O X 3, answers questions appropriately - Respiratory Respiratory exam: Present: rhonchi (Improving breath sounds bilaterally, no active wheezing. Right upper lobe coarse rhonchorous breath sounds). Absent: accessory muscle use, rales, wheezes - Cardiovascular Cardiovascular exam: Present: irregular rhythm, +S1, +S2. Absent: diastolic murmur, gallop, rubs, systolic murmur - Extremities Exam Extremities exam: Present: full ROM, warm, radial pulses palpable and symetrical. Absent: calf tenderness, cyanotic, pedal edema - Neurological Exam Neurological exam: Present: CN II-XII intact, oriented X3, no focal deficits. Absent: pronater drift, facial droop, speech deficit Internal Medicine: Result - Labs CBC & Chem 7: 08/24/16 04:00 08/24/16 04:00 - ABG Interpretation ABG results: ABG ABG pH 7.50 pH Units (7.32-7.45) H 08/22/16 15:05 ABG pCO2 42 mmHg (35-45) 08/22/16 15:05 ABG pO2 49 mmHg (85-104) L* 08/22/16 15:05 ABG O2 Saturation 88 % (95-98) L 08/22/16 15:05 PT/INR, D-dimer PT 11.0 Seconds (9.4-12.1) 08/22/16 15:13 Consult Discharge Plan - Plan Referrals: Paulo Kim MD [Primary Care Provider] -
[2016-08-27] MEDS: Ipratropium/Albuterol Neb 3 ML IH SCH ×4 (04:26→22:16)
[2016-08-27 06:42] LABS: Eosinophils % 0.3 %; Hematocrit 28.5 % (35.3-44.9); Hemoglobin 8.7 g/dL (11.5-15.4); Immature Granulocytes % 0.5 % (0-4); Lymphocytes # 0.6 K/mcL (0.6-4.6); Lymphocytes % 14.6 %; Mean Corpuscular HGB Conc 30.5 g/dL (31.6-35.5); Mean Corpuscular Hemoglobin 25.9 pg (28.0-33.3); Mean Corpuscular Volume 84.8 fL (83.0-100.0); Mean Platelet Volume 9.1 fL (9.4-12.4); Monocytes # 0.2 K/mcL (0.0-1.3); Monocytes % 5.4 %; Neutrophils # 3.1 K/mcL (1.6-8.9); Platelet Count 162 K/mcL (140-400); Red Blood Count 3.36 M/mcL (3.82-4.97); Red Cell Distribution Width 19.3 % (11.5-14.5); Segmented Neutrophils % 79.2 %
[2016-08-27] MEDS: *HR* LORazepam 1 MG TABLET PO PRN ×3 (06:45→21:41)
[2016-08-27] MEDS: Sucralfate 1 GM TABLET PO SCH ×4 (06:45→21:41)
[2016-08-27] MEDS: *HR* Enoxaparin 40 MG/0.4 ML SYRINGE SQ SCH (06:45)
[2016-08-27 07:01] LABS: BUN/Creatinine Ratio 28 (6-26); Blood Urea Nitrogen 21 mg/dL (7-20); Calcium 8.1 mg/dL (8.6-10.8); Carbon Dioxide 29 mEq/L (19-29); Chloride 100 mEq/L (98-109); Glucose 83 mg/dL (70-99); Osmolality,Calculated 282 (280-300); Potassium 4.3 mEq/L (3.5-4.5); Sodium 135 mEq/L (136-145); eGFR For African Americans > 60 (> 60); eGFR For Non-African Americans > 60 (> 60)
--- NOTE | 2016-08-27 07:59 | Pulmonology Progress Note ---
Date of Encounter: 08/27/16 Time of Encounter: 07:59 Assessment and Plan (1) Acute on chronic respiratory failure Current Visit: Yes Status: Acute wean Fio2 to keep sats >88% (likely can stop all supplemental support today) Qualifiers: Respiratory failure complication: hypoxia Qualified Code(s): J96.21 - Acute and chronic respiratory failure with hypoxia (2) COPD exacerbation Current Visit: Yes Status: Acute cont BDs Cont enteral steroids to complete 2week course to baseline dose for radiation pneumonitis which can be weaned as an outpatient (3) Influenza A virus present Current Visit: Yes Status: Acute treated with TamiFlu (4) Radiation pneumonitis Current Visit: Yes Status: Chronic complicating acute course - stable at this time Cont steroids Subjective Principal diagnosis: Influenza pneumonia Interval history: Generally feels better. wore PAP overnight Denies fever cough or chills. Objective PUL Vital signs: Last Vital Signs Temp 98.1 F 08/27/16 05:52 Pulse 91 08/27/16 05:52 Resp 19 08/27/16 05:52 BP 172/90 08/27/16 05:52 Pulse Ox 95 08/27/16 05:52 General appearance: no acute distress ENT: oropharynx moist Auscultation: bilateral: clear Cardiovascular: regular rate and rhythm Extremities: edema normal mental status, non-focal exam mood appropriate Results - Laboratory Findings CBC and BMP: 08/27/16 06:18 08/27/16 06:18 ABG ABG pH 7.50 pH Units (7.32-7.45) H 08/22/16 15:05 ABG pCO2 42 mmHg (35-45) 08/22/16 15:05 ABG pO2 49 mmHg (85-104) L* 08/22/16 15:05 ABG O2 Saturation 88 % (95-98) L 08/22/16 15:05 PT/INR, D-dimer PT 11.0 Seconds (9.4-12.1) 08/22/16 15:13 Abnormal lab findings: Abnormal lab results WBC 3.9 K/mcL (4.3-11.1) L 08/27/16 06:18 RBC 3.36 M/mcL (3.82-4.97) L 08/27/16 06:18 Hgb 8.7 g/dL (11.5-15.4) L 08/27/16 06:18 Hct 28.5 % (35.3-44.9) L 08/27/16 06:18 MCH 25.9 pg (28.0-33.3) L 08/27/16 06:18 MCHC 30.5 g/dL (31.6-35.5) L 08/27/16 06:18 RDW 19.3 % (11.5-14.5) H 08/27/16 06:18 MPV 9.1 fL (9.4-12.4) L 08/27/16 06:18 APTT 25.7 Seconds (26.0-36.0) L 08/22/16 15:13 ABG pH 7.50 pH Units (7.32-7.45) H 08/22/16 15:05 ABG pO2 49 mmHg (85-104) L* 08/22/16 15:05 ABG HCO3 32.8 mEQ/L (21-27) H 08/22/16 15:05 ABG Total CO2 34.1 mEq/L (20-26) H 08/22/16 15:05 ABG O2 Saturation 88 % (95-98) L 08/22/16 15:05 ABG Base Excess 8.8 mEq/L (-2.0 to 3.0) H 08/22/16 15:05 Sodium 135 mEq/L (136-145) L 08/27/16 06:18 BUN 21 mg/dL (7-20) H 08/27/16 06:18 BUN/Creatinine Ratio 28 (6-26) H 08/27/16 06:18 Calcium 8.1 mg/dL (8.6-10.8) L 08/27/16 06:18 - Clinical Findings Intake & Output: Intake & Output 08/26/16 08/26/16 08/27/16 15:59 23:59 07:59 Intake Total 870 / 870 0 / 0 Output Total 0 / 0 Balance 870 / 870 0 / 0 Weight 101 kg Consult Discharge Plan - Plan Referrals: Paulo Kim MD [Primary Care Provider] -
[2016-08-27] MEDS: predniSONE 20 MG TABLET PO SCH (09:36)
[2016-08-27] MEDS: Oseltamivir Phosphate 30 MG CAPSULE PO SCH (09:36)
[2016-08-27] MEDS: Metoprolol XL (24 HR) Succ 50 MG TAB.ER.24H PO SCH (09:37)
[2016-08-27] MEDS: levoFLOXacin 500 MG TABLET PO SCH (09:37)
[2016-08-27] MEDS: Cyanocobalamin (B-12) 1,000 MCG TABLET PO SCH (09:37)
[2016-08-27] MEDS: Folic Acid 1 MG TABLET PO SCH (09:38)
--- NOTE | 2016-08-27 13:13 | Internal Med Progress Note ---
Date of Encounter: 08/27/16 Time of Encounter: 13:11 - Assessment and plan (1) Influenza A virus present Current Visit: Yes Status: Acute Assessment and plan: continue Tamiflu, will complete course today. IV hydration and supportive care. Supplemental oxygen as needed, currently noted to require high flow oxygen. (2) COPD exacerbation Current Visit: Yes Status: Acute Assessment and plan: Complicated by underlying radiation pneumonitis. Patient has a slow progress, still requiring high flow supplemental oxygen with nocturnal CPAP. Continue bronchodilators and supplemental oxygen. Continue oral steroids. Completed 5 day course of empiric antibiotics and Tamiflu. Pulmonary follow-up appreciated , agree with current management. Patient may need to be discharged to [facility] on nocturnal CPAP if she cannot be weaned off it. (3) HCAP (healthcare-associated pneumonia) Current Visit: Yes Status: Suspected (4) Anemia Current Visit: Yes Status: Chronic Qualifiers: Anemia type: unspecified type Qualified Code(s): D64.9 - Anemia, unspecified (5) Hypertension Current Visit: Yes Status: Chronic Assessment and plan: Blood pressure noted to be well controlled. Continue home medications. Qualifiers: Hypertension type: essential hypertension Qualified Code(s): I10 - Essential (primary) hypertension (6) Lung cancer, upper lobe Current Visit: Yes Status: Chronic Assessment and plan: Follows with oncology as outpatient. Received radiation treatment and developed radiation pneumonitis. Qualifiers: Laterality: right Qualified Code(s): C34.11 - Malignant neoplasm of upper lobe, right bronchus or lung (7) Anxiety Current Visit: Yes Status: Chronic Assessment and plan: Continue benzodiazepines. (8) Radiation pneumonitis Current Visit: Yes Status: Chronic Assessment and plan: Pulmonary consult appreciated. Continue PO steroids and taper off as outpatient; - Subjective Interval history: Reports feeling better but still has shortness of breath on minimal exertion. He required CPAP overnight. Continues to require 7 L/m oxygen via nasal cannula. - Constitutional Vitals: Temp Pulse Resp BP Pulse Ox 98.1 F 91 19 172/90 95 08/27/16 05:52 08/27/16 05:52 08/27/16 11:08 08/27/16 05:52 08/27/16 11:08 General appearance: Present: mild distress (respiratory), A&O X 3, answers questions appropriately - Respiratory Respiratory exam: Present: CTAB (Much improved breath sounds. Continues to have coarse breath sounds bilaterally). Absent: accessory muscle use, rales, rhonchi, wheezes - Cardiovascular Cardiovascular exam: Present: RRR, +S1, +S2. Absent: diastolic murmur, gallop, rubs, systolic murmur - GI/Abdominal GI/Abdominal exam: Present: normal bowel sounds, soft, no peritoneal signs. Absent: distended, tenderness - Extremities Exam Extremities exam: Present: full ROM, warm, radial pulses palpable and symetrical. Absent: calf tenderness, cyanotic, pedal edema Internal Medicine: Result - Labs CBC & Chem 7: 08/27/16 06:18 08/27/16 06:18 Labs: Short CBC 08/27/16 Range/Units 06:18 WBC 3.9 L (4.3-11.1) K/mcL Hgb 8.7 L (11.5-15.4) g/dL Hct 28.5 L (35.3-44.9) % Plt Count 162 (140-400) K/mcL Neutrophils # 3.1 (1.6-8.9) K/mcL BMP 08/27/16 06:18 Sodium 135 L Potassium 4.3 Chloride 100 Carbon Dioxide 29 BUN 21 H Creatinine 0.76 Glucose 83 Calcium 8.1 L - ABG Interpretation ABG results: ABG ABG pH 7.50 pH Units (7.32-7.45) H 08/22/16 15:05 ABG pCO2 42 mmHg (35-45) 08/22/16 15:05 ABG pO2 49 mmHg (85-104) L* 08/22/16 15:05 ABG O2 Saturation 88 % (95-98) L 08/22/16 15:05 PT/INR, D-dimer PT 11.0 Seconds (9.4-12.1) 08/22/16 15:13 Consult Discharge Plan - Plan Referrals: Paulo Kim MD [Primary Care Provider] -
[2016-08-27] MEDS: Benzonatate 100 MG CAPSULE PO PRN (13:38)
[2016-08-28] MEDS: Ipratropium/Albuterol Neb 3 ML IH SCH ×4 (03:35→21:45)
[2016-08-28] MEDS: *HR* Enoxaparin 40 MG/0.4 ML SYRINGE SQ SCH (06:40)
[2016-08-28 07:03] LABS: Eosinophils % 0.3 %; Hematocrit 28.1 % (35.3-44.9); Hemoglobin 8.8 g/dL (11.5-15.4); Lymphocytes # 0.6 K/mcL (0.6-4.6); Lymphocytes % 14.5 %; Mean Corpuscular HGB Conc 31.3 g/dL (31.6-35.5); Mean Corpuscular Hemoglobin 26.2 pg (28.0-33.3); Mean Corpuscular Volume 83.6 fL (83.0-100.0); Mean Platelet Volume 9.1 fL (9.4-12.4); Monocytes # 0.2 K/mcL (0.0-1.3); Platelet Count 174 K/mcL (140-400); Red Blood Count 3.36 M/mcL (3.82-4.97); Red Cell Distribution Width 19.5 % (11.5-14.5); Segmented Neutrophils % 78.2 %
[2016-08-28 07:17] LABS: BUN/Creatinine Ratio 26 (6-26); Blood Urea Nitrogen 19 mg/dL (7-20); Calcium 8.1 mg/dL (8.6-10.8); Carbon Dioxide 27 mEq/L (19-29); Chloride 102 mEq/L (98-109); Glucose 80 mg/dL (70-99); Osmolality,Calculated 283 (280-300); Sodium 136 mEq/L (136-145); eGFR For African Americans > 60 (> 60); eGFR For Non-African Americans > 60 (> 60)
[2016-08-28 07:21] LABS: Potassium 4.7 mEq/L (3.5-4.5)
[2016-08-28] MEDS: *HR* LORazepam 1 MG TABLET PO PRN ×3 (09:07→22:19)
[2016-08-28] MEDS: Sucralfate 1 GM TABLET PO SCH ×4 (09:07→22:19)
[2016-08-28] MEDS: predniSONE 20 MG TABLET PO SCH (09:08)
[2016-08-28] MEDS: Metoprolol XL (24 HR) Succ 50 MG TAB.ER.24H PO SCH (09:08)
[2016-08-28] MEDS: Cyanocobalamin (B-12) 1,000 MCG TABLET PO SCH (09:08)
[2016-08-28] MEDS: Folic Acid 1 MG TABLET PO SCH (09:08)
[2016-08-28] MEDS: Benzonatate 100 MG CAPSULE PO PRN (11:52)
--- NOTE | 2016-08-28 19:34 | Internal Med Progress Note ---
Date of Encounter: 08/28/16 Time of Encounter: 10:00 - Assessment and plan (1) Acute on chronic respiratory failure Current Visit: Yes Status: Acute Assessment and plan: Due to influenza, underlying COPD and radiation pneumonitis. Continue current treatment and wean down FiO2 as tolerated. Qualifiers: Respiratory failure complication: hypoxia Qualified Code(s): J96.21 - Acute and chronic respiratory failure with hypoxia (2) COPD exacerbation Current Visit: Yes Status: Acute Assessment and plan: Complicated by underlying radiation pneumonitis. Patient has a slow progress, still requiring high flow supplemental oxygen with nocturnal CPAP. Continue bronchodilators and supplemental oxygen. Continue oral steroids. Completed 5 day course of empiric antibiotics and Tamiflu. Pulmonary follow-up appreciated , agree with current management. Patient may need to be discharged to [facility] on nocturnal CPAP if she cannot be weaned off it. (3) Influenza A virus present Current Visit: Yes Status: Acute Assessment and plan: Completed Tamiflu course. IV hydration and supportive care. Supplemental oxygen as needed, currently noted to require high flow oxygen. (4) Radiation pneumonitis Current Visit: Yes Status: Chronic Assessment and plan: Pulmonary consult appreciated. Continue PO steroids and taper off as outpatient; (5) DVT prophylaxis Current Visit: Yes Status: Acute Assessment and plan: Lovenox subcutaneously - Time Spent With Patient 25 - 35 minutes - Subjective Interval history: Patient is a 80-year-old female admitted for healthcare associated pneumonia, influenza, radiation pneumonitis. Her past medical history is significant for long and breast cancer, hypertension. Patient was seen and examined. Still in shortness of breath. Do need a high level oxygen to maintain oxygen saturation. No fever. Vital signs stable. Finish antibiotic course and Tamiflu treatment. Pulmonology consult is on case , recommend a steroid treatment for radiation pneumonitis. Will continue close monitoring and gradually tapered down oxygen. - Constitutional Vitals: Temp Pulse Resp BP Pulse Ox 98.1 F 86 18 140/80 95 08/28/16 11:15 08/28/16 15:48 08/28/16 15:48 08/28/16 15:49 08/28/16 15:48 General appearance: Present: mild distress (respiratory), A&O X 3, answers questions appropriately - Head Head exam: Present: atraumatic, normocephalic - Eye Eye exam: Present: PERRL, conjuntiva pink, sclera anicteric Pupils: Present: PERRL - Neck Neck exam general surgery: Present: supple, trachea midline. Absent: lymphadenopathy - Respiratory Respiratory exam: Present: CTAB, wheezes (Scattered wheezes bilaterally). Absent: accessory muscle use, rales, rhonchi - Cardiovascular Cardiovascular exam: Present: RRR, +S1, +S2. Absent: diastolic murmur, gallop, rubs, systolic murmur - GI/Abdominal GI/Abdominal exam: Present: normal bowel sounds, soft, no peritoneal signs. Absent: distended, tenderness - Extremities Exam Extremities exam: Present: warm, radial pulses palpable and symetrical. Absent : calf tenderness, cyanotic, pedal edema - Neurological Exam Neurological exam: Present: CN II-XII intact, oriented X3, no focal deficits. Absent: pronater drift, facial droop, speech deficit - Skin Skin exam: Present: dry, intact Internal Medicine: Result - Labs CBC & Chem 7: 08/28/16 06:35 08/28/16 06:35 Labs: Short CBC 08/28/16 Range/Units 06:35 WBC 3.9 L (4.3-11.1) K/mcL Hgb 8.8 L (11.5-15.4) g/dL Hct 28.1 L (35.3-44.9) % Plt Count 174 (140-400) K/mcL Neutrophils # 3.0 (1.6-8.9) K/mcL BMP 08/28/16 06:35 Sodium 136 Potassium 4.7 H Chloride 102 Carbon Dioxide 27 BUN 19 Creatinine 0.72 Glucose 80 Calcium 8.1 L - ABG Interpretation ABG results: ABG ABG pH 7.50 pH Units (7.32-7.45) H 08/22/16 15:05 ABG pCO2 42 mmHg (35-45) 08/22/16 15:05 ABG pO2 49 mmHg (85-104) L* 08/22/16 15:05 ABG O2 Saturation 88 % (95-98) L 08/22/16 15:05 PT/INR, D-dimer PT 11.0 Seconds (9.4-12.1) 08/22/16 15:13 Consult Discharge Plan - Plan Referrals: Paulo Kim MD [Primary Care Provider] -
[2016-08-29] MEDS: Ipratropium/Albuterol Neb 3 ML IH SCH ×2 (03:38→10:49)
[2016-08-29 05:21] LABS: Eosinophils % 0.3 %; Hematocrit 28.8 % (35.3-44.9); Hemoglobin 8.9 g/dL (11.5-15.4); Immature Granulocytes % 1.7 % (0-4); Lymphocytes # 0.5 K/mcL (0.6-4.6); Lymphocytes % 13.3 %; Mean Corpuscular HGB Conc 30.9 g/dL (31.6-35.5); Mean Corpuscular Hemoglobin 25.8 pg (28.0-33.3); Mean Corpuscular Volume 83.5 fL (83.0-100.0); Mean Platelet Volume 8.8 fL (9.4-12.4); Monocytes # 0.2 K/mcL (0.0-1.3); Monocytes % 6.9 %; Neutrophils # 2.7 K/mcL (1.6-8.9); Platelet Count 190 K/mcL (140-400); Red Blood Count 3.45 M/mcL (3.82-4.97); Red Cell Distribution Width 19.4 % (11.5-14.5); Segmented Neutrophils % 77.8 %
[2016-08-29 05:42] LABS: BUN/Creatinine Ratio 27 (6-26); Blood Urea Nitrogen 18 mg/dL (7-20); Calcium 8.1 mg/dL (8.6-10.8); Carbon Dioxide 29 mEq/L (19-29); Chloride 101 mEq/L (98-109); Glucose 93 mg/dL (70-99); Osmolality,Calculated 284 (280-300); Potassium 4.6 mEq/L (3.5-4.5); Sodium 136 mEq/L (136-145); eGFR For African Americans > 60 (> 60); eGFR For Non-African Americans > 60 (> 60)
[2016-08-29] MEDS: *HR* Enoxaparin 40 MG/0.4 ML SYRINGE SQ SCH (06:03)
[2016-08-29 06:46] VITALS: BP 156/79
[2016-08-29] MEDS: Sucralfate 1 GM TABLET PO SCH ×2 (08:24→11:39)
[2016-08-29] MEDS: Cyanocobalamin (B-12) 1,000 MCG TABLET PO SCH (08:24)
[2016-08-29] MEDS: Metoprolol XL (24 HR) Succ 50 MG TAB.ER.24H PO SCH (08:24)
[2016-08-29] MEDS: *HR* LORazepam 1 MG TABLET PO PRN ×2 (08:25→15:04)
[2016-08-29] MEDS: Folic Acid 1 MG TABLET PO SCH (08:25)
[2016-08-29] MEDS: predniSONE 20 MG TABLET PO SCH (08:25)
[2016-08-29] MEDS: Benzonatate 100 MG CAPSULE PO PRN (11:39)
--- NOTE | 2016-08-29 14:25 | Discharge Summary ---
Date of Encounter: 08/29/16 Time of Encounter: 13:00 - Discharge Diagnosis (1) Acute on chronic respiratory failure Priority: Primary Status: Acute Qualifiers: Respiratory failure complication: hypoxia Qualified Code(s): J96.21 - Acute and chronic respiratory failure with hypoxia (2) COPD exacerbation Priority: Primary Status: Acute (3) Influenza A virus present Priority: Primary Status: Acute (4) Radiation pneumonitis Priority: Primary Status: Chronic (5) DVT prophylaxis Priority: Secondary Status: Acute - Discharge Medications Prescriptions: Benzonatate [Tessalon] 100 mg PO TID PRN #20 capsule PRN Reason: Cough Home Medications: Sucralfate [Carafate] 1 gm PO QIDAC #120 tablet 03/07/16 [Rx] Citalopram [CeleXA] 20 mg PO DAILY #30 tablet 07/10/16 [Rx] Folic Acid 1 mg PO DAILY #30 tablet 08/03/16 [Rx] Ferrous Sulfate [Iron] 325 mg PO TID 08/10/16 [History] Pantoprazole Sodium [Protonix] 40 mg PO DAILY 08/10/16 [History] Albuterol Neb [Proventil Neb] 2.5 mg IH [id number] PRN #0 inhsol 08/17/16 [Rx] Ipratropium/Albuterol Neb [Duoneb] 3 ml IH [id number] inhsol 08/17/16 [Rx] Losartan [Cozaar] 25 mg PO DAILY tablet 08/17/16 [Rx] Cyanocobalamin (Vitamin B-12) [Vitamin B12] 2,000 mcg PO DAILY 08/22/16 [History ] GuaiFENesin ER [Mucinex] 600 mg PO BID PRN 08/22/16 [History] LORazepam [Ativan] 1 mg PO 0700,1500,2300 08/22/16 [History] Metoprolol Succinate 100 mg PO DAILY 08/22/16 [History] Omeprazole Magnesium [Prilosec Otc] 20 mg PO DAILY 08/22/16 [History] Potassium Chloride [K-Tab ER] 20 meq PO DAILY 08/22/16 [History] PredniSONE 40 mg PO TAPER 08/22/16 [History] Benzonatate [Tessalon] 100 mg PO TID PRN #20 capsule 08/29/16 [Rx] Allergies/Adverse Reactions: Allergies bupropion [From Wellbutrin] Allergy (Verified 05/15/16 08:54) Hives Hydromorphone [From Dilaudid] Allergy (Verified 05/15/16 08:54) Hives Penicillins Allergy (Verified 05/15/16 08:54) Hives phenytoin [From Dilantin] Allergy (Verified 05/15/16 08:54) Unresponsive acetaminophen [From Percocet] Adverse Reaction (Verified 05/15/16 08:54) Hallucinating Oxycodone [From Percocet] Adverse Reaction (Verified 05/15/16 08:54) Hallucinating - Notes to Outpatient Provider 1. Please continue prednisone 40 mg by mouth daily for at least another 7 days and try to taper down as scheduled previously. 2. Patient to need 4-5 L/m nasal cannula oxygen during daytime, and BiPAP during night. Date of admission: 08/22/16 18:18 Primary care physician: Paulo Kim MD Consults: 08/22/16 21:50 Consult to Pastoral Services [CONS] Routine Comment: Consult to Machine Maintenance Supervisor [CONS] Routine Reason for SW Consult: Discharge 08/22/16 22:33 Consult to Pulmonology [CONS] Routine Consulting Provider: [facility]ady Reason for Consult: Patient with complicated lung history (cancer, COPD, radiation pneumonitis, etc) admitted with possible pneumonia. Please assist with diagnosis and management. Call Completed: Yes Discharging clinician: Gen Quintanilla Anticipated date of discharge: 08/29/16 - Patient Status Disposition: Transfer SNF Condition: Fair Overall status at discharge: patient is not back to baseline - Discharge Instructions Follow Up With: Paulo Kim MD [Primary Care Provider] - - Diet and Activity Activity: as per physical therapy Diet: low fat, low cholesterol, low salt diet Interval History: She is a 44-year-old female who was seen here several days ago they activated stroke alert [facility] neurology was involved. They state she had atypical symptoms of a stroke did not recommend TPA. Patient's symptoms resolved she left AGAINST MEDICAL ADVICE. She states today she was working at [employer] and cannot lift up a bucket of 24 pieces of chicken. She was unable to perform her work without physical limitations so she came back in to be evaluated again. She states her left arm weakness has never resolved since she left the ER over 48 hours ago. She did not have any deficits in her face or in her left lower extremity Hospital course: Ms. Irby is a 80 year old female admitted for shortness of breath and desaturation. Patient was treated as pneumonia. Pulmonology consult was called and saw patient. Consider patient has a COPD exacerbation plus radiation pneumonitis. Patient was placed on prednisone and supportive treatment. After treatment, patient's condition has improved with decreased oxygen demand. Patient does still need oxygen 4 L/m during daytime and BiPAP during the night. Will discharge patient to [facility] with continuous by mouth prednisone and continue the oxygen therapy. Patient was seen and examined, she feels less SOB, no chest pain. Vitals are stable. Lungs are clear, no wheezing. Patient will discharge to [facility] with prednisone 40 mg by mouth daily, nasal cannula oxygen during daytime and BiPAP during night. Oxygen and BiPAP has been setup in [facility] already. - Time Spent with Patient Total time spent providing and/or coordinating discharge services: 40 minutes Greater than 30 minutes - Constitutional Vitals: Temp Pulse Resp BP Pulse Ox 97.9 F 91 18 156/79 98 08/29/16 06:44 08/29/16 06:44 08/29/16 10:49 08/29/16 06:44 08/29/16 10:49 General appearance: Present: mild distress (respiratory), A&O X 3, answers questions appropriately - Head Head exam: Present: atraumatic, normocephalic - Eye Eye exam: Present: PERRL, conjuntiva pink, sclera anicteric Pupils: Present: PERRL - Neck Neck exam general surgery: Present: supple, trachea midline. Absent: lymphadenopathy - Respiratory Respiratory exam: Present: CTAB. Absent: accessory muscle use, rales, rhonchi, wheezes - Cardiovascular Cardiovascular exam: Present: RRR, +S1, +S2. Absent: diastolic murmur, gallop, rubs, systolic murmur - GI/Abdominal GI/Abdominal exam: Present: normal bowel sounds, soft, no peritoneal signs. Absent: distended, tenderness - Extremities Exam Extremities exam: Present: warm, radial pulses palpable and symetrical. Absent : calf tenderness, cyanotic, pedal edema - Neurological Exam Neurological exam: Present: CN II-XII intact, oriented X3, no focal deficits. Absent: pronater drift, facial droop, speech deficit - Skin Skin exam: Present: dry, intact
--- NOTE | 2016-08-29 14:56 | Physician Discharge Referral ---
ExtendedCare Referral Info Transfer To: [facility] Provider in Charge after Transfer: Other - Diagnosis (1) Acute on chronic respiratory failure Status: Acute (2) COPD exacerbation Status: Acute (3) Influenza A virus present Status: Acute (4) Radiation pneumonitis Status: Chronic (5) DVT prophylaxis Status: Acute - Transfer Medications Prescriptions: Benzonatate [Tessalon] 100 mg PO TID PRN #20 capsule PRN Reason: Cough Home Medications: Sucralfate [Carafate] 1 gm PO QIDAC #120 tablet 03/07/16 [Rx] Citalopram [CeleXA] 20 mg PO DAILY #30 tablet 07/10/16 [Rx] Folic Acid 1 mg PO DAILY #30 tablet 08/03/16 [Rx] Ferrous Sulfate [Iron] 325 mg PO TID 08/10/16 [History] Pantoprazole Sodium [Protonix] 40 mg PO DAILY 08/10/16 [History] Albuterol Neb [Proventil Neb] 2.5 mg IH [id number] PRN #0 inhsol 08/17/16 [Rx] Ipratropium/Albuterol Neb [Duoneb] 3 ml IH [id number] inhsol 08/17/16 [Rx] Losartan [Cozaar] 25 mg PO DAILY tablet 08/17/16 [Rx] Cyanocobalamin (Vitamin B-12) [Vitamin B12] 2,000 mcg PO DAILY 08/22/16 [History ] GuaiFENesin ER [Mucinex] 600 mg PO BID PRN 08/22/16 [History] LORazepam [Ativan] 1 mg PO 0700,1500,2300 08/22/16 [History] Metoprolol Succinate 100 mg PO DAILY 08/22/16 [History] Omeprazole Magnesium [Prilosec Otc] 20 mg PO DAILY 08/22/16 [History] Potassium Chloride [K-Tab ER] 20 meq PO DAILY 08/22/16 [History] PredniSONE 40 mg PO TAPER 08/22/16 [History] Benzonatate [Tessalon] 100 mg PO TID PRN #20 capsule 08/29/16 [Rx] Allergies/Adverse Reactions: Allergies bupropion [From Wellbutrin] Allergy (Verified 05/15/16 08:54) Hives Hydromorphone [From Dilaudid] Allergy (Verified 05/15/16 08:54) Hives Penicillins Allergy (Verified 05/15/16 08:54) Hives phenytoin [From Dilantin] Allergy (Verified 05/15/16 08:54) Unresponsive acetaminophen [From Percocet] Adverse Reaction (Verified 05/15/16 08:54) Hallucinating Oxycodone [From Percocet] Adverse Reaction (Verified 05/15/16 08:54) Hallucinating - Respiratory Orders Oxygen / L per min (4), Other (BiPAP during night) Smoking Cessation: Smoking cessation has been advised. For more information, call the [place] Tobacco Quit Line at 4-924-AJXT-NOW. - Advance Directives Code Status: Full Code - Rehabiliation Orders Rehab Potential: Fair Rehab Orders: Evaluation for Physical Therapy, Evaluation for Occupational Therapy - Diet Orders Cardiac CERTIFICATION: I certify that the transfer of the above named patient to an Extended Care Facility is necessary for the continuing treatment of the diagnosis listed. The above information is true and accurate reflection of patient's current condition. Confidential - Redisclosure prohibited without a patient's written consent.
== END 2016-08-29 16:01 | DRG 205 ==
LOC: EMEROO 14:31 → 2NENU 14:31 → SUATTDRO 18:18 → 2NENU 19:36
PROVIDERS: ADMIT Internal Medicine; ATTEND Internal Medicine

== ENCOUNTER 2016-08-31 16:13 | Inpatient (IN) ==
[2016-08-31] MEDS ORDERED: Ipratropium/Albuterol Neb 3 ML IH ONE (16:22)
[2016-08-31] MEDS ORDERED: methylPREDNISolone 125 MG/2 ML VIAL IVP ONE (16:22)
[2016-08-31] MEDS ORDERED: Ipratropium/Albuterol Neb 3 ML ONE (16:30)
--- NOTE | 2016-08-31 16:36 | Emergency Department Note ---
Disposition Clinical Impression: Acute exacerbation of chronic obstructive airways disease Acute and chronic respiratory failure Qualifiers: Respiratory failure complication: hypoxia Qualified Code(s): J96.21 - Acute and chronic respiratory failure with hypoxia Disposition: Admitted As Inpatient Condition: Serious Time of Disposition: 19:12 SOB HPI - General Chief Complaint: ED Shortness of Breath/Dyspnea Stated Complaint: Shortness of Breath, hx lung cancer Time Seen by Provider: 08/31/16 16:18 Source: patient Limitations: no limitations Nursing Notes Reviewed: Yes Vital Signs Reviewed: Yes - History of Present Illness 80-year-old male history of chronic respiratory failure on oxygen, recent admission for shortness of breath hypoxia, presents with similar complaints from traditions, she has had worsening shortness breath the last few days. Prior to BiPAP in route. Patient sat was 80% prior to BiPAP placement, she is breathing hard, tachypnea tachycardic. Limited history is obtained from the patient, but she denies chest pain abdominal pain headache at this time. No recent fevers or chills. Pt Subjective Complaint: shortness of breath Onset (ago): hour(s) Context: recent illness Improves with: nothing Known history of: COPD, congestive heart failure Treatment prior to arrival: none Cough present: Yes Cough Frequency: Continuous Sputum production: Yes Sputum Amount: Scant Sputum Color: Clear - Related Data Home oxygen amount: 2 liters Home Medications Medication Instructions Recorded Confirmed Ferrous Sulfate [Iron] 325 mg PO TID 08/10/16 08/31/16 Pantoprazole Sodium [Protonix] 40 mg PO DAILY 08/10/16 08/31/16 Cyanocobalamin (Vitamin B-12) 2,000 mcg PO DAILY 08/22/16 08/31/16 [Vitamin B12] GuaiFENesin ER [Mucinex] 600 mg PO BID PRN 08/22/16 08/31/16 Metoprolol Succinate 100 mg PO DAILY 08/22/16 08/31/16 Omeprazole Magnesium [Prilosec Otc] 20 mg PO DAILY 08/22/16 08/31/16 Potassium Chloride [K-Tab ER] 20 meq PO DAILY 08/22/16 08/31/16 PredniSONE 40 mg PO TAPER 08/22/16 08/31/16 Previous Rx's Medication Instructions Recorded Sucralfate [Carafate] 1 gm PO QIDAC #120 tablet 03/07/16 Citalopram [CeleXA] 20 mg PO DAILY #30 tablet 07/10/16 Folic Acid 1 mg PO DAILY #30 tablet 08/03/16 Albuterol Neb [Proventil Neb] 2.5 mg IH [id number] PRN #0 inhsol 08/17/16 Ipratropium/Albuterol Neb [Duoneb] 3 ml IH [id number] inhsol 08/17/16 Losartan [Cozaar] 25 mg PO DAILY tablet 08/17/16 Benzonatate [Tessalon] 100 mg PO TID PRN #20 capsule 08/29/16 LORazepam [Ativan] 1 mg PO 0700,1500,2300 #20 tablet 08/29/16 Allergies Allergy/AdvReac Type Severity Reaction Status Date / Time bupropion [From Wellbutrin] Allergy Hives Verified 08/31/16 16:38 Hydromorphone [From Dilaudid] Allergy Hives Verified 08/31/16 16:38 Penicillins Allergy Hives Verified 08/31/16 16:38 phenytoin [From Dilantin] Allergy Unresponsiv Verified 08/31/16 16:38 e acetaminophen [From Percocet] AdvReac Hallucinati Verified 08/31/16 16:38 ng Oxycodone [From Percocet] AdvReac Hallucinati Verified 08/31/16 16:38 ng Review of Systems: All systems were reviewed with historian and negative except as per below, or as documented in the HPI. Constitutional:+ for weight loss Eyes: Denies: vision changes, eye pain ENT: Denies: nasal congestion, sore throat CV: Denies: chest pain, palpitations Resp: cough, dyspnea, wheezeDenies: hemoptysis GI: Denies: abdominal pain, N/V/D/C Neuro: Denies: MERRILL, weakness, sensory changes, gait difficulty Psych: Denies: anxiety, depression All systems ED: reviewed and negative except as stated. Past Medical History - Past Medical History Attestation: Yes The following information was validated with the patient. Source: patient Medical history: Reports: cancer, hypertension, migraine, other Surgical history: Reports: cancer surgery, cholecystectomy, hysterectomy, orthopedic, other Psychiatric history: Reports: anxiety, depression - Social History Smoking Status: Never smoker Smokeless Tobacco Status: No Alcohol use: Reports: none Drug use: Reports: none Physical Exam Constitutional: Alert and oriented times self, appears in moderate to severe respiratory distress Neck: normal inspection, neck is supple, trachea midline Resp: Tachypnea, decreased breath sounds bilaterally, bibasilar rales CV: RRR, no m/g/r 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 Reassess - Reevaluation(s) Reevaluation #1: After trial of DuoNeb systolic Medrol, chest x-ray shows no pneumonia and no obvious white count however patient still appears moderately tachypneic, breathing 35, unable to titrate patient down to her home oxygen to 3 L, she is currently on 4-5 L moderately tachypneic we will put her back on BiPAP, admit to hospitalist service [employer] accepting Vital Signs Temperature 98.7 F 08/31/16 16:16 Pulse Rate 105 08/31/16 16:16 Respiratory Rate 38 08/31/16 16:16 Blood Pressure 167/97 08/31/16 16:16 O2 Sat by Pulse Oximetry 98 08/31/16 16:16 Temperature 98.7 F 08/31/16 16:16 Pulse Rate 107 08/31/16 18:12 Respiratory Rate 44 08/31/16 18:12 Blood Pressure 147/81 08/31/16 18:12 O2 Sat by Pulse Oximetry 90 L 08/31/16 18:12 Oxygen Delivery Oxygen Delivery Nasal Cannula Shortness of Breath/Dyspnea - Differential Diagnosis Likely: acute exacerbation of chronic obstructive airways disease, congestive heart failure, pneumonia - Medical Records Medical records reviewed: Yes I reviewed the patient's medical records. - Lab Data Lab results reviewed: Yes I reviewed the patient's lab results. Result diagrams: 08/31/16 16:31 08/31/16 16:31 Lab Results 08/31/16 08/31/16 08/31/16 Range/Units 16:31 16:31 16:31 WBC 4.4 (4.3-11.1) K/mcL RBC 3.55 L (3.82-4.97) M/mcL Hgb 9.4 L (11.5-15.4) g/dL Hct 29.7 L (35.3-44.9) % MCV 83.7 (83.0-100.0) fL MCH 26.5 L (28.0-33.3) pg MCHC 31.6 (31.6-35.5) g/dL RDW 20.1 H (11.5-14.5) % Plt Count 222 (140-400) K/mcL MPV 8.6 L (9.4-12.4) fL Immature Gran % 3.2 (0-4) % Seg Neutrophils % 83.0 % Lymphocytes % 6.7 % Monocytes % 6.9 % Eosinophils % 0.0 % Basophils % 0.2 % Neutrophils # 3.6 (1.6-8.9) K/mcL Lymphocytes # 0.3 L (0.6-4.6) K/mcL Monocytes # 0.3 (0.0-1.3) K/mcL Eosinophils # 0.0 (0.0-0.6) K/mcL Basophils # 0.0 (0.0-0.2) K/mcL PT 10.1 (9.4-12.1) Seconds INR 0.9 APTT 20.2 L (26.0-36.0) Seconds ABG pH (7.32-7.45) pH Units ABG pCO2 (35-45) mmHg ABG pO2 (85-104) mmHg ABG HCO3 (21-27) mEQ/L ABG Total CO2 (20-26) mEq/L ABG O2 Saturation (95-98) % ABG Base Excess (-2.0 to 3.0) mEq/L Blood Gas Modality Inspired O2 % Sodium 136 (136-145) mEq/L Potassium 4.9 H (3.5-4.5) mEq/L Chloride 102 (98-109) mEq/L Carbon Dioxide 27 (19-29) mEq/L BUN 18 (7-20) mg/dL Creatinine 0.73 (0.57-1.11) mg/dL Est GFR ( Amer) > 60 (> 60) Est GFR (Non-Af Amer) > 60 (> 60) BUN/Creatinine Ratio 25 (6-26) Glucose 125 H (70-99) mg/dL Calculated Osmolality 285 (280-300) Calcium 8.1 L (8.6-10.8) mg/dL Troponin I (0-0.03) ng/mL B-Natriuretic Peptide (0-100) pg/mL Urine Color (Yellow) Urine Clarity (Clear) Urine pH (5.0-8.0) pH Units Ur Specific [place] (1.010-1.025) Urine Protein (Neg-Trace) mg/dL Urine Glucose (UA) (Normal) mg/dL Urine Ketones (Negative) mg/dL Urine Blood (Negative) Urine Nitrite (Negative) Urine Bilirubin (Negative) Urine Urobilinogen (Normal) mg/dL Ur Leukocyte Esterase (Negative) Urine Microscopic RBC (0-3) per hpf Urine Microscopic WBC (0-3) per hpf Ur Squamous Epith Cells (None-Few) per lpf Urine Bacteria (None-Few) per hpf Hyaline Casts (None-Few) per lpf Ur Culture Indicated? (NO) 08/31/16 08/31/16 08/31/16 Range/Units 16:31 16:31 16:40 WBC (4.3-11.1) K/mcL RBC (3.82-4.97) M/mcL Hgb (11.5-15.4) g/dL Hct (35.3-44.9) % MCV (83.0-100.0) fL MCH (28.0-33.3) pg MCHC (31.6-35.5) g/dL RDW (11.5-14.5) % Plt Count (140-400) K/mcL MPV (9.4-12.4) fL Immature Gran % (0-4) % Seg Neutrophils % % Lymphocytes % % Monocytes % % Eosinophils % % Basophils % % Neutrophils # (1.6-8.9) K/mcL Lymphocytes # (0.6-4.6) K/mcL Monocytes # (0.0-1.3) K/mcL Eosinophils # (0.0-0.6) K/mcL Basophils # (0.0-0.2) K/mcL PT (9.4-12.1) Seconds INR APTT (26.0-36.0) Seconds ABG pH 7.43 (7.32-7.45) pH Units ABG pCO2 49 H (35-45) mmHg ABG pO2 59 L (85-104) mmHg ABG HCO3 32.5 H (21-27) mEQ/L ABG Total CO2 34.0 H (20-26) mEq/L ABG O2 Saturation 91 L (95-98) % ABG Base Excess 7.2 H (-2.0 to 3.0) mEq/L Blood Gas Modality CPAP Inspired O2 100 % Sodium (136-145) mEq/L Potassium (3.5-4.5) mEq/L Chloride (98-109) mEq/L Carbon Dioxide (19-29) mEq/L BUN (7-20) mg/dL Creatinine (0.57-1.11) mg/dL Est GFR ( Amer) (> 60) Est GFR (Non-Af Amer) (> 60) BUN/Creatinine Ratio (6-26) Glucose (70-99) mg/dL Calculated Osmolality (280-300) Calcium (8.6-10.8) mg/dL Troponin I 0.01 (0-0.03) ng/mL B-Natriuretic Peptide 77 (0-100) pg/mL Urine Color (Yellow) Urine Clarity (Clear) Urine pH (5.0-8.0) pH Units Ur Specific [place] (1.010-1.025) Urine Protein (Neg-Trace) mg/dL Urine Glucose (UA) (Normal) mg/dL Urine Ketones (Negative) mg/dL Urine Blood (Negative) Urine Nitrite (Negative) Urine Bilirubin (Negative) Urine Urobilinogen (Normal) mg/dL Ur Leukocyte Esterase (Negative) Urine Microscopic RBC (0-3) per hpf Urine Microscopic WBC (0-3) per hpf Ur Squamous Epith Cells (None-Few) per lpf Urine Bacteria (None-Few) per hpf Hyaline Casts (None-Few) per lpf Ur Culture Indicated? (NO) 08/31/16 Range/Units 17:30 WBC (4.3-11.1) K/mcL RBC (3.82-4.97) M/mcL Hgb (11.5-15.4) g/dL Hct (35.3-44.9) % MCV (83.0-100.0) fL MCH (28.0-33.3) pg MCHC (31.6-35.5) g/dL RDW (11.5-14.5) % Plt Count (140-400) K/mcL MPV (9.4-12.4) fL Immature Gran % (0-4) % Seg Neutrophils % % Lymphocytes % % Monocytes % % Eosinophils % % Basophils % % Neutrophils # (1.6-8.9) K/mcL Lymphocytes # (0.6-4.6) K/mcL Monocytes # (0.0-1.3) K/mcL Eosinophils # (0.0-0.6) K/mcL Basophils # (0.0-0.2) K/mcL PT (9.4-12.1) Seconds INR APTT (26.0-36.0) Seconds ABG pH (7.32-7.45) pH Units ABG pCO2 (35-45) mmHg ABG pO2 (85-104) mmHg ABG HCO3 (21-27) mEQ/L ABG Total CO2 (20-26) mEq/L ABG O2 Saturation (95-98) % ABG Base Excess (-2.0 to 3.0) mEq/L Blood Gas Modality Inspired O2 % Sodium (136-145) mEq/L Potassium (3.5-4.5) mEq/L Chloride (98-109) mEq/L Carbon Dioxide (19-29) mEq/L BUN (7-20) mg/dL Creatinine (0.57-1.11) mg/dL Est GFR ( Amer) (> 60) Est GFR (Non-Af Amer) (> 60) BUN/Creatinine Ratio (6-26) Glucose (70-99) mg/dL Calculated Osmolality (280-300) Calcium (8.6-10.8) mg/dL Troponin I (0-0.03) ng/mL B-Natriuretic Peptide (0-100) pg/mL Urine Color Yellow (Yellow) Urine Clarity Clear (Clear) Urine pH 6.5 (5.0-8.0) pH Units Ur Specific [place] 1.015 (1.010-1.025) Urine Protein Negative (Neg-Trace) mg/dL Urine Glucose (UA) Normal (Normal) mg/dL Urine Ketones Negative (Negative) mg/dL Urine Blood Small H (Negative) Urine Nitrite Negative (Negative) Urine Bilirubin Negative (Negative) Urine Urobilinogen Normal (Normal) mg/dL Ur Leukocyte Esterase Small H (Negative) Urine Microscopic RBC 5-15 H (0-3) per hpf Urine Microscopic WBC 5-15 H (0-3) per hpf Ur Squamous Epith Cells Many H (None-Few) per lpf Urine Bacteria None Seen (None-Few) per hpf Hyaline Casts None Seen (None-Few) per lpf Ur Culture Indicated? YES A (NO) - Radiology Data Radiology results reviewed: Yes I reviewed the patient's radiology results. Chest X-Ray 08/31/16 16:21 IMPRESSION: Left lower lobe atelectasis. Otherwise stable chest. D/ / 08/31/2016 17:18:38 Neto Agee MD / eliana Interpreting Provider: Neto Agee MD - EKG Data EKG attestation: Yes I reviewed and interpreted this EKG. EKG shows normal: Reports: sinus rhythm Rate: Reports: tachycardia (106 bpm OK 152 QRS [address] segment elevations or depressions.) [place]/QRS: Reports: left axis deviation Interpretation: Reports: no acute changes - Core Measures AMI Core Measures Followed: No Measure Exclusions: not indicated
[2016-08-31 16:43] LABS: Basophils % 0.2 %; Hematocrit 29.7 % (35.3-44.9); Hemoglobin 9.4 g/dL (11.5-15.4); Immature Granulocytes % 3.2 % (0-4); Lymphocytes # 0.3 K/mcL (0.6-4.6); Lymphocytes % 6.7 %; Mean Corpuscular HGB Conc 31.6 g/dL (31.6-35.5); Mean Corpuscular Hemoglobin 26.5 pg (28.0-33.3); Mean Corpuscular Volume 83.7 fL (83.0-100.0); Mean Platelet Volume 8.6 fL (9.4-12.4); Monocytes # 0.3 K/mcL (0.0-1.3); Monocytes % 6.9 %; Neutrophils # 3.6 K/mcL (1.6-8.9); Platelet Count 222 K/mcL (140-400); Red Blood Count 3.55 M/mcL (3.82-4.97); Red Cell Distribution Width 20.1 % (11.5-14.5)
[2016-08-31 16:50] LABS: ABG Base Excess 7.2 mEq/L (-2.0 to 3.0); ABG HCO3 32.5 mEQ/L (21-27); ABG Oxygen Saturation 91 % (95-98); ABG PCO2 49 mmHg (35-45); ABG PH 7.43 pH Units (7.32-7.45); ABG PO2 59 mmHg (85-104)
[2016-08-31 16:51] LABS: BUN/Creatinine Ratio 25 (6-26); Blood Urea Nitrogen 18 mg/dL (7-20); Calcium 8.1 mg/dL (8.6-10.8); Carbon Dioxide 27 mEq/L (19-29); Chloride 102 mEq/L (98-109); Glucose 125 mg/dL (70-99); Osmolality,Calculated 285 (280-300); Potassium 4.9 mEq/L (3.5-4.5); Sodium 136 mEq/L (136-145); eGFR For African Americans > 60 (> 60); eGFR For Non-African Americans > 60 (> 60)
[2016-08-31 16:53] LABS: Blood Gas FiO2 100 %
[2016-08-31 17:09] LABS: INR 0.9; Prothrombin Time 10.1 Seconds (9.4-12.1)
[2016-08-31 17:14] LABS: Activated Partial Thrombo Time 20.2 Seconds (26.0-36.0)
[2016-08-31 17:40] LABS: Bilirubin,Urine Negative (Negative); Blood,Urine Small (Negative); Clarity,Urine Clear (Clear); Color,Urine Yellow (Yellow); Glucose,Urine (UA) Normal (Normal); Ketones,Urine Negative (Negative); Leukocyte Esterase,Urine Small (Negative); Nitrite,Urine Negative (Negative); PH,Urine 6.5 pH Units (5.0-8.0); Protein,Urine Negative (Neg-Trace); Specific Gravity,Urine 1.015 (1.010-1.025); Urobilinogen,Urine Normal (Normal)
[2016-08-31 17:43] LABS: Bacteria,Urine None Seen per hpf (None-Few); Hyaline Casts,Urine None Seen per lpf (None-Few); Squamous Epithelial Cell,Urine Many per lpf (None-Few)
--- NOTE | 2016-08-31 18:49 | Emergency Department Note ---
Disposition Clinical Impression: Acute and chronic respiratory failure, Acute exacerbation of chronic obstructive airways disease Disposition: Admitted As Inpatient Condition: Fair General Adult HPI - General Chief complaint: ED Shortness of Breath/Dyspnea Stated complaint: Shortness of Breath, hx lung cancer Time Seen by Provider: 08/31/16 16:18 Source: patient Limitations: no limitations - History of Present Illness Pain Scale: 0 - Related Data Home Medications Medication Instructions Recorded Confirmed Ferrous Sulfate [Iron] 325 mg PO TID 08/10/16 08/31/16 Pantoprazole Sodium [Protonix] 40 mg PO DAILY 08/10/16 08/31/16 Cyanocobalamin (Vitamin B-12) 2,000 mcg PO DAILY 08/22/16 08/31/16 [Vitamin B12] GuaiFENesin ER [Mucinex] 600 mg PO BID PRN 08/22/16 08/31/16 Metoprolol Succinate 100 mg PO DAILY 08/22/16 08/31/16 Omeprazole Magnesium [Prilosec Otc] 20 mg PO DAILY 08/22/16 08/31/16 Potassium Chloride [K-Tab ER] 20 meq PO DAILY 08/22/16 08/31/16 Previous Rx's Medication Instructions Recorded Sucralfate [Carafate] 1 gm PO QIDAC #120 tablet 03/07/16 Citalopram [CeleXA] 20 mg PO DAILY #30 tablet 07/10/16 Folic Acid 1 mg PO DAILY #30 tablet 08/03/16 Albuterol Neb [Proventil Neb] 2.5 mg IH [id number] PRN #0 inhsol 08/17/16 Ipratropium/Albuterol Neb [Duoneb] 3 ml IH [id number] inhsol 08/17/16 Benzonatate [Tessalon] 100 mg PO TID PRN #20 capsule 08/29/16 LORazepam [Ativan] 1 mg PO 0700,1500,2300 #10 tablet 09/03/16 Losartan [Cozaar] 50 mg PO DAILY #20 tablet 09/03/16 PredniSONE 40 mg PO DAILY #10 tablet 09/03/16 Allergies Allergy/AdvReac Type Severity Reaction Status Date / Time bupropion [From Wellbutrin] Allergy Hives Verified 08/31/16 16:38 Hydromorphone [From Dilaudid] Allergy Hives Verified 08/31/16 16:38 Penicillins Allergy Hives Verified 08/31/16 16:38 phenytoin [From Dilantin] Allergy Unresponsiv Verified 08/31/16 16:38 e acetaminophen [From Percocet] AdvReac Hallucinati Verified 08/31/16 16:38 ng Oxycodone [From Percocet] AdvReac Hallucinati Verified 08/31/16 16:38 ng Past Medical History - Past Medical History Medical history: Reports: cancer, hypertension, migraine, other Surgical history: Reports: cancer surgery, cholecystectomy, hysterectomy, orthopedic, other Psychiatric history: Reports: anxiety, depression - Social History Smoking Status: Never smoker Smokeless Tobacco Status: No Alcohol use: Reports: none Drug use: Reports: none Physical Exam - General Limitations: no limitations General appearance: alert, in no apparent distress Course - Reevaluation(s) Reevaluation #1: Social patient with the resident, Dr. Corado. Patient presents with shortness of breath. On examination she looks short of breath. We will give her previous treatments. She still has oxygen requirement and still is somewhat short of breath. She is to be admitted for management. Hospitalist is already set of the patient. Time: 18:49 Vital Signs Temperature 98.7 F 08/31/16 16:16 Pulse Rate 105 08/31/16 16:16 Respiratory Rate 38 08/31/16 16:16 Blood Pressure 167/97 08/31/16 16:16 O2 Sat by Pulse Oximetry 98 08/31/16 16:16 Temperature 97.6 F 09/03/16 15:09 Pulse Rate 108 09/03/16 15:15 Respiratory Rate 22 09/03/16 15:09 Blood Pressure 164/92 09/03/16 15:09 O2 Sat by Pulse Oximetry 90 L 09/03/16 15:09 Oxygen Delivery Oxygen Delivery Nasal Cannula Medical Decision Making - Lab Data Result diagrams: 09/03/16 04:55 09/03/16 04:55 Lab Results 08/31/16 08/31/16 08/31/16 Range/Units 16:31 16:31 16:31 WBC 4.4 (4.3-11.1) K/mcL RBC 3.55 L (3.82-4.97) M/mcL Hgb 9.4 L (11.5-15.4) g/dL Hct 29.7 L (35.3-44.9) % MCV 83.7 (83.0-100.0) fL MCH 26.5 L (28.0-33.3) pg MCHC 31.6 (31.6-35.5) g/dL RDW 20.1 H (11.5-14.5) % Plt Count 222 (140-400) K/mcL MPV 8.6 L (9.4-12.4) fL Immature Gran % 3.2 (0-4) % Seg Neutrophils % 83.0 % Lymphocytes % 6.7 % Monocytes % 6.9 % Eosinophils % 0.0 % Basophils % 0.2 % Neutrophils # 3.6 (1.6-8.9) K/mcL Lymphocytes # 0.3 L (0.6-4.6) K/mcL Monocytes # 0.3 (0.0-1.3) K/mcL Eosinophils # 0.0 (0.0-0.6) K/mcL Basophils # 0.0 (0.0-0.2) K/mcL PT 10.1 (9.4-12.1) Seconds INR 0.9 APTT 20.2 L (26.0-36.0) Seconds ABG pH (7.32-7.45) pH Units ABG pCO2 (35-45) mmHg ABG pO2 (85-104) mmHg ABG HCO3 (21-27) mEQ/L ABG Total CO2 (20-26) mEq/L ABG O2 Saturation (95-98) % ABG Base Excess (-2.0 to 3.0) mEq/L Blood Gas Modality Inspired O2 % Sodium 136 (136-145) mEq/L Potassium 4.9 H (3.5-4.5) mEq/L Chloride 102 (98-109) mEq/L Carbon Dioxide 27 (19-29) mEq/L BUN 18 (7-20) mg/dL Creatinine 0.73 (0.57-1.11) mg/dL Est GFR ( Amer) > 60 (> 60) Est GFR (Non-Af Amer) > 60 (> 60) BUN/Creatinine Ratio 25 (6-26) Glucose 125 H (70-99) mg/dL POC Glucose (58-89) Calculated Osmolality 285 (280-300) Calcium 8.1 L (8.6-10.8) mg/dL Troponin I (0-0.03) ng/mL B-Natriuretic Peptide (0-100) pg/mL Urine Color (Yellow) Urine Clarity (Clear) Urine pH (5.0-8.0) pH Units Ur Specific [place] (1.010-1.025) Urine Protein (Neg-Trace) mg/dL Urine Glucose (UA) (Normal) mg/dL Urine Ketones (Negative) mg/dL Urine Blood (Negative) Urine Nitrite (Negative) Urine Bilirubin (Negative) Urine Urobilinogen (Normal) mg/dL Ur Leukocyte Esterase (Negative) Urine Microscopic RBC (0-3) per hpf Urine Microscopic WBC (0-3) per hpf Ur Squamous Epith Cells (None-Few) per lpf Urine Bacteria (None-Few) per hpf Hyaline Casts (None-Few) per lpf Ur Culture Indicated? (NO) 08/31/16 08/31/16 08/31/16 Range/Units 16:31 16:31 16:40 WBC (4.3-11.1) K/mcL RBC (3.82-4.97) M/mcL Hgb (11.5-15.4) g/dL Hct (35.3-44.9) % MCV (83.0-100.0) fL MCH (28.0-33.3) pg MCHC (31.6-35.5) g/dL RDW (11.5-14.5) % Plt Count (140-400) K/mcL MPV (9.4-12.4) fL Immature Gran % (0-4) % Seg Neutrophils % % Lymphocytes % % Monocytes % % Eosinophils % % Basophils % % Neutrophils # (1.6-8.9) K/mcL Lymphocytes # (0.6-4.6) K/mcL Monocytes # (0.0-1.3) K/mcL Eosinophils # (0.0-0.6) K/mcL Basophils # (0.0-0.2) K/mcL PT (9.4-12.1) Seconds INR APTT (26.0-36.0) Seconds ABG pH 7.43 (7.32-7.45) pH Units ABG pCO2 49 H (35-45) mmHg ABG pO2 59 L (85-104) mmHg ABG HCO3 32.5 H (21-27) mEQ/L ABG Total CO2 34.0 H (20-26) mEq/L ABG O2 Saturation 91 L (95-98) % ABG Base Excess 7.2 H (-2.0 to 3.0) mEq/L Blood Gas Modality CPAP Inspired O2 100 % Sodium (136-145) mEq/L Potassium (3.5-4.5) mEq/L Chloride (98-109) mEq/L Carbon Dioxide (19-29) mEq/L BUN (7-20) mg/dL Creatinine (0.57-1.11) mg/dL Est GFR ( Amer) (> 60) Est GFR (Non-Af Amer) (> 60) BUN/Creatinine Ratio (6-26) Glucose (70-99) mg/dL POC Glucose (58-89) Calculated Osmolality (280-300) Calcium (8.6-10.8) mg/dL Troponin I 0.01 (0-0.03) ng/mL B-Natriuretic Peptide 77 (0-100) pg/mL Urine Color (Yellow) Urine Clarity (Clear) Urine pH (5.0-8.0) pH Units Ur Specific [place] (1.010-1.025) Urine Protein (Neg-Trace) mg/dL Urine Glucose (UA) (Normal) mg/dL Urine Ketones (Negative) mg/dL Urine Blood (Negative) Urine Nitrite (Negative) Urine Bilirubin (Negative) Urine Urobilinogen (Normal) mg/dL Ur Leukocyte Esterase (Negative) Urine Microscopic RBC (0-3) per hpf Urine Microscopic WBC (0-3) per hpf Ur Squamous Epith Cells (None-Few) per lpf Urine Bacteria (None-Few) per hpf Hyaline Casts (None-Few) per lpf Ur Culture Indicated? (NO) 08/31/16 08/31/16 Range/Units 17:30 21:18 WBC (4.3-11.1) K/mcL RBC (3.82-4.97) M/mcL Hgb (11.5-15.4) g/dL Hct (35.3-44.9) % MCV (83.0-100.0) fL MCH (28.0-33.3) pg MCHC (31.6-35.5) g/dL RDW (11.5-14.5) % Plt Count (140-400) K/mcL MPV (9.4-12.4) fL Immature Gran % (0-4) % Seg Neutrophils % % Lymphocytes % % Monocytes % % Eosinophils % % Basophils % % Neutrophils # (1.6-8.9) K/mcL Lymphocytes # (0.6-4.6) K/mcL Monocytes # (0.0-1.3) K/mcL Eosinophils # (0.0-0.6) K/mcL Basophils # (0.0-0.2) K/mcL PT (9.4-12.1) Seconds INR APTT (26.0-36.0) Seconds ABG pH (7.32-7.45) pH Units ABG pCO2 (35-45) mmHg ABG pO2 (85-104) mmHg ABG HCO3 (21-27) mEQ/L ABG Total CO2 (20-26) mEq/L ABG O2 Saturation (95-98) % ABG Base Excess (-2.0 to 3.0) mEq/L Blood Gas Modality Inspired O2 % Sodium (136-145) mEq/L Potassium (3.5-4.5) mEq/L Chloride (98-109) mEq/L Carbon Dioxide (19-29) mEq/L BUN (7-20) mg/dL Creatinine (0.57-1.11) mg/dL Est GFR ( Amer) (> 60) Est GFR (Non-Af Amer) (> 60) BUN/Creatinine Ratio (6-26) Glucose (70-99) mg/dL POC Glucose 168 H (58-89) Calculated Osmolality (280-300) Calcium (8.6-10.8) mg/dL Troponin I (0-0.03) ng/mL B-Natriuretic Peptide (0-100) pg/mL Urine Color Yellow (Yellow) Urine Clarity Clear (Clear) Urine pH 6.5 (5.0-8.0) pH Units Ur Specific [place] 1.015 (1.010-1.025) Urine Protein Negative (Neg-Trace) mg/dL Urine Glucose (UA) Normal (Normal) mg/dL Urine Ketones Negative (Negative) mg/dL Urine Blood Small H (Negative) Urine Nitrite Negative (Negative) Urine Bilirubin Negative (Negative) Urine Urobilinogen Normal (Normal) mg/dL Ur Leukocyte Esterase Small H (Negative) Urine Microscopic RBC 5-15 H (0-3) per hpf Urine Microscopic WBC 5-15 H (0-3) per hpf Ur Squamous Epith Cells Many H (None-Few) per lpf Urine Bacteria None Seen (None-Few) per hpf Hyaline Casts None Seen (None-Few) per lpf Ur Culture Indicated? YES A (NO) Attestation Statement - Attestation Attestation: I, Dr. Mathis, examined this patient [id number] and my medical decision- making was reviewed with Dr. Corado, Resident Physician. I agree with the documented findings, disposition and treatment plan as described except to the extent set forth below. Please see my progress notes for details.
[2016-08-31] MEDS ORDERED: Ondansetron ODT 4 MG TAB.RAPDIS SL PRN (21:07)
[2016-08-31] MEDS ORDERED: Naloxone 0.4 MG/ML INJ IVP PRN (21:07)
[2016-08-31] MEDS ORDERED: Benzonatate 100 MG CAPSULE PO PRN (21:13)
[2016-08-31] MEDS ORDERED: Levalbuterol Neb 0.63 MG/3 ML IH PRN (21:47)
--- NOTE | 2016-08-31 21:57 | Internal Med History&Physical ---
<Aarti Ruiz - Last Filed: 08/31/16 22:49> Date of Encounter: 08/31/16 Time of Encounter: 21:57 Assessment and Plan (1) Acute on chronic respiratory failure Current visit: No Status: Acute Patient presents with acute respiratory distress, O2 saturation 80% on supplemental oxygen. Patient has history of chronic respiratory failure requiring supplemental O2 and BiPAP at home. She improved with BiPAP, duoneb breathing treatments and steroids. Patient continues to be tachypneic however family and patient state that she is back to her baseline. She is still requiring more supplemental O2 than the 3L she uses at home. Patient is afebrile and reports improving nonproductive cough, no leukocytosis - do not believe that patient has an underlying infectious process. Patient does have underlying COPD, right lobe lung cancer s/p radiation, and radiation pneumonitis. This could be partly a progression of her underlying pulmonary disease. Patient has crackles on exam. She denies any history of CHF diagnosis. Last ECHO was 03/2016 prior to radiation - EF of 55%, indeterminate diastolic dysfunction, mild aortic and tricuspid regurgitation. BNP today was 77. Will hold on consult to pulmonology at this time. 1. Continuous oxygen monitoring with supplemental O2 as needed 2. BiPAP at night 3. Because of crackles, will give 20mg IV lasix now 4. Scheduled duonebs every 4 hours 5. PRN xolpenex Qualifiers: Respiratory failure complication: hypoxia and hypercapnia Qualified Code(s) : J96.21 - Acute and chronic respiratory failure with hypoxia; J96.22 - Acute and chronic respiratory failure with hypercapnia (2) COPD (chronic obstructive pulmonary disease) Current visit: Yes Status: Acute Patient with underlying COPD. Will treat with supportive care as above. 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 Family reports that they have not had a follow up PET scan because patient has been so sick lately. They were seeing Dr. Keller and Dr. Law. Qualifiers: Laterality: right Qualified Code(s): C34.11 - Malignant neoplasm of upper lobe, right bronchus or lung (4) Radiation pneumonitis Current visit: No Status: Chronic (5) Anemia Current visit: No Status: Acute Patient with history of anemia. Hgb 94. Baseline appears to be 8-9. Will continue home folic acid, iron and vitamin B12. Qualifiers: Anemia type: other cause Other causes of anemia: other cause, not classified Qualified Code(s): D64.89 - Other specified anemias (6) Hypertension Current visit: No Status: Chronic Patient alberto history of HTN. Will monitor blood pressures and continue home medications. Qualifiers: Hypertension type: essential hypertension Qualified Code(s): I10 - Essential (primary) hypertension (7) Goals of care, counseling/discussion Current visit: Yes Status: Acute Patient and family had discussion with ED providers on admission concerning code status and goals of care. They report that patient has really gone down hill since radiation therapy and they understand that this might be the new baseline. They would like to stay full code currently but they requested to meet with palliative care team to discuses code status and goals of care during this admission. They have never meet with them before. Will consult palliative care and appreciate their help. (8) DVT prophylaxis Current visit: No Status: Acute Heparin for DVT prophylaxis. Internal Medicine - H&P: HPI Chief complaint: Shortnes of breath Admitted From: Emergency Dept History of present illness: Ms. Irby is a 80 year old female with PMH of right sided non-small cell lung cancer stage III a s/p radiotherapy March 2016, right radical mastectomy s/p radiation 1960, chronic respiratory failure on home O2 and BiPAP, and radiation pneumonitis. Patient was recently admitted here 08/22/2016 for acute on chronic respiratory failure secondary to pneumonia and influenza, discharged 01/2016. Patient presented to the ED from [facility] with worsening shortness of breath this morning to the point that she was breathing really fast and she felt like she couldn't catch her breath. Patient arrived on supplemental oxygen with an O2 saturation of 80% and was placed on BiPAP. She was given duonebs x3 and solumedrol 125mg IV. Afterwards her O2 saturation was 90% on 4L supplemental O2 so she was admitted. Patient denies any fever/chills since discharge. She reports that she still has a cough but it is improving from discharge and is non-productive. Patient denies MERRILL, vision changes, chest pain or pressure, nausea/vomiting, abdominal pain, changes in bowel or bladder. In the ED, patient was afebrile. Tachycardic with HR of 101-107. Tachypneic with respiratory rate 25-44. Blood pressure appropriate. Labs grossly normal with slightly elevated potassium at 4.9. Troponin 0.01. BNP 77. ABG in the ED pH 7.43/pCO2 49/Po2 59/HCO3 32.5/BE 7.2. CXR showed left lower lobe atelectasis. On exam, patient was on 5L supplemental oxygen O2 saturation around 90%. Patient is dyspneic on exam with O2 saturation decreasing to about 85% during conversation. She is tachypneic with some wheezing. Patient reports that she is feeling much better compared to arrival to the ED. Patient's son is present and he reports that he looks much better and he believes she is at her baseline. He states that she is normally tachypneic. Heart regular rate and rhythm. Lung diminished RUL as expected, BL crackles, and expiratory wheezing. Abdomen soft, non-tender. 2+ pedal edema. Past Med Surg Social Fam HX - Past Medical History Medical history: cancer, hypertension, migraine, other Psychiatric history: anxiety, depression - Past Surgical History Surgical History: cancer surgery, cholecystectomy, hysterectomy, orthopedic, other - Social History Smoking Status: Never smoker Smokeless Tobacco Status: No Alcohol use: none Drug use: none - Family History Father Living Status: Hx Family Cardiac Disorders: Yes Mother Living Status: Hx Family Cancer: Yes (Ovarian) Internal Medicine - H&P: Meds Sucralfate [Carafate] 1 gm PO QIDAC #120 tablet 03/07/16 [Rx] Citalopram [CeleXA] 20 mg PO DAILY #30 tablet 07/10/16 [Rx] Folic Acid 1 mg PO DAILY #30 tablet 08/03/16 [Rx] Ferrous Sulfate [Iron] 325 mg PO TID 08/10/16 [History] Pantoprazole Sodium [Protonix] 40 mg PO DAILY 08/10/16 [History] Albuterol Neb [Proventil Neb] 2.5 mg IH [id number] PRN #0 inhsol 08/17/16 [Rx] Ipratropium/Albuterol Neb [Duoneb] 3 ml IH [id number] inhsol 08/17/16 [Rx] Losartan [Cozaar] 25 mg PO DAILY tablet 08/17/16 [Rx] Cyanocobalamin (Vitamin B-12) [Vitamin B12] 2,000 mcg PO DAILY 08/22/16 [History ] GuaiFENesin ER [Mucinex] 600 mg PO BID PRN 08/22/16 [History] Metoprolol Succinate 100 mg PO DAILY 08/22/16 [History] Omeprazole Magnesium [Prilosec Otc] 20 mg PO DAILY 08/22/16 [History] Potassium Chloride [K-Tab ER] 20 meq PO DAILY 08/22/16 [History] PredniSONE 40 mg PO TAPER 08/22/16 [History] Benzonatate [Tessalon] 100 mg PO TID PRN #20 capsule 08/29/16 [Rx] LORazepam [Ativan] 1 mg PO 0700,1500,2300 #20 tablet 08/29/16 [Rx] Allergies bupropion [From Wellbutrin] Allergy (Verified 08/31/16 16:38) Hives Hydromorphone [From Dilaudid] Allergy (Verified 08/31/16 16:38) Hives Penicillins Allergy (Verified 08/31/16 16:38) Hives phenytoin [From Dilantin] Allergy (Verified 08/31/16 16:38) Unresponsive acetaminophen [From Percocet] Adverse Reaction (Verified 08/31/16 16:38) Hallucinating Oxycodone [From Percocet] Adverse Reaction (Verified 08/31/16 16:38) Hallucinating All Systems PM: A 10-system review of systems was performed and is negative for pertinent findings except as documented above in the HPI. - Constitutional Constitutional: no chills, no fever(s), no lethargy - EENT Eyes: no blurry vision, no change in vision Nose, mouth and throat: no nasal congestion, no nasal discharge, no sore throat - Cardiovascular Cardiovascular ROS IM: dyspnea, dyspnea on exertion, edema, no chest pain, no claudication, no diaphoresis, no irregular heart rhythm, no palpitations - Respiratory Respiratory: cough, dyspnea, dyspnea on exertion, wheezing, no hemoptysis, no pain on inspiration, no chest congestion, no excessive phlegm production, no pain with cough - Gastrointestinal Gastrointestinal: no abdominal pain, no constipation, no diarrhea, no hematemesis, no hematochezia, no melena, no nausea, no vomiting - Genitourinary Genitourinary: no change in urinary stream, no dysuria - Neurological Neurological ROS: no confusion, no headache(s), no numbness, no weakness - Constitutional Vitals: Temp Pulse Resp BP Pulse Ox 97.8 F 111 32 160/101 89 L 08/31/16 21:13 08/31/16 21:37 08/31/16 21:13 08/31/16 21:13 08/31/16 21:37 General appearance: Present: A&O X 3, pleasant, answers questions appropriately - Head Head exam: Present: atraumatic, normal inspection, normocephalic - Eye Eye exam: Present: EOMI, normal appearance, PERRL - ENT ENT exam: Present: mucous membranes moist - Respiratory Respiratory exam: Present: decreased breath sounds, rales, wheezes, tachypnea. Absent: rhonchi, stridor - Cardiovascular Cardiovascular exam: Present: RRR - GI/Abdominal GI/Abdominal exam: Present: soft. Absent: distended, rebound, rigid, tenderness - Extremities Exam Extremities exam: Present: pedal edema - Neurological Exam Neurological exam: Present: alert, CN II-XII intact, oriented X3, no focal deficits Internal Med - H&P Results - Labs CBC & Chem 7: 08/31/16 16:31 08/31/16 16:31 - ABG Interpretation Interpretation: ABG interpreted by nm ABG results: pH 7.42/pCO2 49/pO2 59/HCO3 32/5/BE 7.2 - Compensated hypoxemia and hypercarbia - Impressions ITS Impressions Chest X-Ray 08/31/16 16:21 IMPRESSION: Left lower lobe atelectasis. Otherwise stable chest. D/ / 08/31/2016 17:18:38 Neto Agee MD / eliana Interpreting Provider: Neto Agee MD <Shiraz Trejo - Last Filed: 09/01/16 04:00> Internal Medicine - H&P: HPI History of present illness: Ms. Irby is a 80 year old female All Systems PM: A 10-system review of systems was performed and is negative for pertinent findings except as documented above in the HPI. - Constitutional Vitals: Temp Pulse Resp BP Pulse Ox 97.4 F L 101 18 143/87 97 08/31/16 23:25 09/01/16 01:01 09/01/16 00:16 09/01/16 01:01 09/01/16 00:16 Internal Med - H&P Results - Labs CBC & Chem 7: 08/31/16 16:31 08/31/16 16:31 - Attending Attestation I performed a history and physical examination of the patient and discussed his management with the Resident/Hand Clipper (Dr Ruiz). I reviewed the residents note and agree with the documented findings and plan of care, with additions as below. 80 year old female with PMH significant for right sided non-small cell lung cancer - s/p radiotherapy March 2016, right radical mastectomy s/p radiation 1960, chronic respiratory failure on home O2 and BiPAP, and radiation pneumonitis. Pt admitted with shortness of breath and had O2 saturation of 80% . O/E: Bilateral basal crackles; right upper zone crackles; bilateral occasional wheeze present. CXR: reported left basal atelectasis. ABG reviewed. Pt had LVEF of 55% in March 2016. A/P: BiPAP therapy, bronchodilators, Solu-Medrol. A trial of IV Lasix (based on clinical exam showing bilateral crackles. BNP is 77). Consider pulmonary consult. Palliative care consult.
[2016-08-31] MEDS ORDERED: Furosemide 20 MG/2 ML VIAL IVP ONE (22:31)
[2016-08-31] MEDS: Sucralfate 1 GM TABLET PO SCH (22:37)
[2016-08-31] MEDS: *HR* LORazepam 1 MG TABLET PO SCH (22:38)
[2016-08-31] MEDS: *HR* Heparin 5,000 UNIT/ML VIAL SQ SCH (22:38)
[2016-09-01] MEDS: Ipratropium/Albuterol Neb 3 ML IH SCH ×5 (00:16→16:53)
[2016-09-01 06:17] LABS: Basophils % 0.2 %; Hematocrit 29.8 % (35.3-44.9); Hemoglobin 9.4 g/dL (11.5-15.4); Immature Granulocytes % 3.2 % (0-4); Lymphocytes # 0.2 K/mcL (0.6-4.6); Lymphocytes % 4.7 %; Mean Corpuscular HGB Conc 31.5 g/dL (31.6-35.5); Mean Corpuscular Hemoglobin 26.3 pg (28.0-33.3); Mean Corpuscular Volume 83.2 fL (83.0-100.0); Mean Platelet Volume 9.6 fL (9.4-12.4); Monocytes # 0.2 K/mcL (0.0-1.3); Monocytes % 4.2 %; Neutrophils # 4.4 K/mcL (1.6-8.9); Platelet Count 222 K/mcL (140-400); Red Blood Count 3.58 M/mcL (3.82-4.97); Segmented Neutrophils % 87.7 %
[2016-09-01 06:30] LABS: BUN/Creatinine Ratio 26 (6-26); Blood Urea Nitrogen 21 mg/dL (7-20); Calcium 8.8 mg/dL (8.6-10.8); Carbon Dioxide 28 mEq/L (19-29); Chloride 100 mEq/L (98-109); Glucose 149 mg/dL (70-99); Magnesium 1.8 mg/dL (1.6-2.6); Osmolality,Calculated 288 (280-300); Phosphorous 3.8 mg/dL (2.3-4.7); Potassium 4.7 mEq/L (3.5-4.5); Sodium 136 mEq/L (136-145); eGFR For African Americans > 60 (> 60); eGFR For Non-African Americans > 60 (> 60)
[2016-09-01] MEDS: *HR* LORazepam 1 MG TABLET PO SCH ×3 (06:54→22:47)
[2016-09-01] MEDS: *HR* Heparin 5,000 UNIT/ML VIAL SQ SCH ×3 (06:54→22:47)
[2016-09-01] MEDS: MethylPREDNISolone 40 MG/ML VIAL IVP SCH ×3 (08:41→22:55)
[2016-09-01] MEDS: Sucralfate 1 GM TABLET PO SCH ×4 (08:42→22:47)
[2016-09-01] MEDS: Folic Acid 1 MG TABLET PO SCH (08:42)
[2016-09-01] MEDS: Cyanocobalamin (B-12) 1,000 MCG TABLET PO SCH (08:43)
[2016-09-01] MEDS: Metoprolol XL (24 HR) Succ 50 MG TAB.ER.24H PO SCH (08:43)
[2016-09-01] MEDS ORDERED: predniSONE 20 MG TABLET PO SCH (09:00)
--- NOTE | 2016-09-01 14:57 | Internal Med Progress Note ---
Date of Encounter: 09/01/16 Time of Encounter: 14:55 - Assessment and plan (1) Acute and chronic respiratory failure Current Visit: Yes Status: Acute Assessment and plan: Acute exacerbation of chronic respiratory failure likely secondary to noncompliance, as patient did not have BiPAP support available at the rehabilitation facility. Chronic respiratory failure likely secondary to underlying COPD, history of lung cancer status post radiation, radiation pneumonitis, patient may have a component of obstructive sleep apnea, and obesity hypoventilation syndrome. Continue BiPAP support at this time O2 supplementation as needed Continue systemic steroids and bronchodilators Continue to monitor O2 saturation, O2 saturation goal 89-92%. Noted to have basilar crackles on auscultation, we will give Lasix 20 mg IV. Qualifiers: Respiratory failure complication: hypoxia Qualified Code(s): J96.21 - Acute and chronic respiratory failure with hypoxia (2) COPD (chronic obstructive pulmonary disease) Current Visit: Yes Status: Acute Assessment and plan: Plan as listed above Qualifiers: COPD type: unspecified COPD Qualified Code(s): J44.9 - Chronic obstructive pulmonary disease, unspecified (3) Goals of care, counseling/discussion Current Visit: Yes Status: Acute Assessment and plan: Palliative care to have a family meeting in regards to goals of care, CODE STATUS, and discharge care planning tomorrow morning. (4) Anemia Current Visit: No Status: Chronic Assessment and plan: Reported to have iron deficiency anemia Continue iron supplementation H&H low but acceptable No active bleeding reported at this time Continue to monitor We will transfuse as needed Qualifiers: Anemia type: unspecified type Qualified Code(s): D64.9 - Anemia, unspecified (5) Anxiety Current Visit: No Status: Chronic Assessment and plan: Continue home medications (6) Lung cancer, upper lobe Current Visit: No Status: Chronic Qualifiers: Laterality: right Qualified Code(s): C34.11 - Malignant neoplasm of upper lobe, right bronchus or lung (7) Radiation pneumonitis Current Visit: No Status: Chronic (8) DVT prophylaxis Current Visit: No Status: Acute Assessment and plan: Heparin subcutaneous (9) Hypertension Current Visit: Yes Status: Acute Assessment and plan: BP within acceptable range, continue home medications. Qualifiers: Hypertension type: essential hypertension Qualified Code(s): I10 - Essential (primary) hypertension (10) Morbid obesity Current Visit: Yes Status: Chronic Qualifiers: Obesity type: unspecified obesity type Qualified Code(s): E66.01 - Morbid ( severe) obesity due to excess calories - Subjective Interval history: Patient seen and examined at bedside. Resting comfortably in bed and saturating well on BiPAP at this time. States she feels significantly better since arrival to the ER, denies any difficulty breathing states she is comfortable on the BiPAP. No chest pain or any other discomfort reported at this time. Family and palliative care to have another meeting tomorrow morning at 10 AM to discuss goals of care, CODE STATUS, and discharge care plan. - Constitutional Vitals: Temp Pulse Resp BP Pulse Ox 97.8 F 99 26 152/97 91 L 09/01/16 12:07 09/01/16 12:07 09/01/16 12:07 09/01/16 12:07 09/01/16 12:07 General appearance: Present: cooperative, A&O X 3, morbidly obese, pleasant, no acute distress, answers questions appropriately - Head Head exam: Present: atraumatic, normocephalic - Eye Eye exam: Present: normal appearance, conjuntiva pink, sclera anicteric - Respiratory Respiratory exam: Present: decreased breath sounds (Bibasilar crackles). Absent : respiratory distress, wheezes - Cardiovascular Cardiovascular exam: Present: RRR, +S1, +S2 - GI/Abdominal GI/Abdominal exam: Present: normal bowel sounds, soft, no peritoneal signs. Absent: distended, tenderness - Extremities Exam Extremities exam: Present: pedal edema (1+ pitting edema bilaterally), warm, radial pulses palpable and symetrical. Absent: calf tenderness - Neurological Exam Neurological exam: Present: alert, oriented X3, no focal deficits - Psychiatric Psychiatric exam: Present: normal affect, normal mood Internal Medicine: Result - Labs CBC & Chem 7: 09/01/16 05:45 09/01/16 05:45 Labs: Short CBC 09/01/16 Range/Units 05:45 WBC 5.1 (4.3-11.1) K/mcL Hgb 9.4 L (11.5-15.4) g/dL Hct 29.8 L (35.3-44.9) % Plt Count 222 (140-400) K/mcL Neutrophils # 4.4 (1.6-8.9) K/mcL BMP 09/01/16 05:45 Sodium 136 Potassium 4.7 H Chloride 100 Carbon Dioxide 28 BUN 21 H Creatinine 0.81 Glucose 149 H Calcium 8.8 - ABG Interpretation ABG results: ABG ABG pH 7.43 pH Units (7.32-7.45) 08/31/16 16:40 ABG pCO2 49 mmHg (35-45) H 08/31/16 16:40 ABG pO2 59 mmHg (85-104) L 08/31/16 16:40 ABG O2 Saturation 91 % (95-98) L 08/31/16 16:40 PT/INR, D-dimer PT 10.1 Seconds (9.4-12.1) 08/31/16 16:31 Consult Discharge Plan - Plan Referrals: Paulo Kim MD [Primary Care Provider] -
[2016-09-01] MEDS ORDERED: Levalbuterol Neb 0.63 MG/3 ML IH PRN (15:02)
[2016-09-01] MEDS ORDERED: Levalbuterol 1 PUFF INHALER IH SCH (16:00)
[2016-09-01] MEDS: Furosemide 20 MG/2 ML VIAL IVP SCH (16:24)
[2016-09-01] MEDS: Levalbuterol Neb 1.25 MG/3 ML IH SCH ×2 (16:58→22:28)
--- NOTE | 2016-09-01 19:40 | Palliative - Consult Note ---
Date of Encounter: 09/01/16 Time of Encounter: 11:45 - Assessment and Plan (1) Dyspnea Current Visit: No Status: Acute Assessment and plan: Supportive therapies, position for comfort, BiPAP as needed. Management of respiratory failure per hospitalist. Qualifiers: Dyspnea type: unspecified Qualified Code(s): R06.00 - Dyspnea, unspecified (2) Acute and chronic respiratory failure Current Visit: Yes Status: Acute Assessment and plan: Management per hospitalist Qualifiers: Respiratory failure complication: hypoxia Qualified Code(s): J96.21 - Acute and chronic respiratory failure with hypoxia (3) Goals of care, counseling/discussion Current Visit: Yes Status: Acute Assessment and plan: Extensive goals of care discussion with the patient, and 2 sons (Nick and Nadir) . Discussed CODE STATUS options in detail including full code, DNRA, DNRCC. At this time, the patient wishes to continue with full code option. We did review various scenarios and emergency situations. Appropriate questions were asked by the patient and her sons. We also discussed discharge options including ECF for rehabilitation, and home options such as hospice care. Reviewed hospice philosophy and care expectations. Ms. Irby was extremely hesitant and became more anxious as we talked about hospice care. We reviewed common misconceptions about the hospice philosophy. At this time, the patient would like to continue with full aggressive care. Contact information was provided to the patient and her sons. The palliative care team will follow up tomorrow at 10 AM for further questions. Thank you for this consultation. (4) Anxiety Current Visit: No Status: Chronic Assessment and plan: Chronic anxiety related to shortness of breath. Lorazepam scheduled at home dose 3 times a day. Continue to monitor. (5) Lung cancer, upper lobe Current Visit: No Status: Chronic Qualifiers: Laterality: right Qualified Code(s): C34.11 - Malignant neoplasm of upper lobe, right bronchus or lung Palliative-CN HPI - Data of Consult Patient: new to practice Consult date: 09/01/16 Requesting Physician: Mackenzie Sun MD Primary Care Provider: Paulo Kim MD - Consult Narrative Palliative Care/Comfort Measures: Palliative care Reason for consult: Goals of care History of present illness: Ms. Irby is a 80 year old female patient admitted to [facility] for local extended care facility. Ms. Irby had a recent admission to [facility] for respiratory failure related to influenza. She was discharged to local rehabilitation facility, but developed worsening shortness of breath and hypoxia. Her oxygen levels were found to be in the 80s and she was transitioned to [facility] for further workup and care. In the emergency department, priya Irby was placed on the BiPAP after she was found to be hypoxic, tachypneic, and in respiratory failure. She was admitted to [facility] for further workup and treatment. Ms. Irby has a history of right-sided breast cancer that was treated with mastectomy and radiation in the 1960s. More recently, she was treated for a right-sided lung cancer with radiation and chemotherapy. This was completed in March 2016. Since that time, Ms. Irby'health has been declining. She requires the use of home oxygen, as well as a home BiPAP. She does have the assistance of home helpers for light duty housework, as well as home health nurses. Overall, activities of daily living are complicated related to her chronic respiratory failure. She becomes short of breath with activity such as transitioning from the bed to the bedside commode. Ms. Irby denies cancer associated pain. Her biggest complaint is her shortness of breath. The palliative care team was consulted to assist with goals of care planning during the patient's chronic medical conditions. CC: Mackenzie Sun MD Past Med Surg Social Fam HX - Past Medical History Source: patient, old records reviewed, obtained from family Medical history: cancer (Right-sided breast cancer, right-sided lung cancer status post chemoradiation), COPD, hypertension, migraine, other (Sleep apnea, obesity hypoventilation syndrome) Psychiatric history: anxiety, depression - Past Surgical History Surgical History: cancer surgery (Right mastectomy), cholecystectomy, hysterectomy, orthopedic, other - Social History Smoking Status: Never smoker Smokeless Tobacco Status: No Alcohol use: none Drug use: none Current living situation: ECF (For rehabilitation purposes) Activity Level: Mostly sedentary - Family History Father Living Status: Hx Family Cardiac Disorders: Yes Mother Living Status: Hx Family Cancer: Yes (Ovarian) Medications and Allergies Sucralfate [Carafate] 1 gm PO QIDAC #120 tablet 03/07/16 [Rx] Citalopram [CeleXA] 20 mg PO DAILY #30 tablet 07/10/16 [Rx] Folic Acid 1 mg PO DAILY #30 tablet 08/03/16 [Rx] Ferrous Sulfate [Iron] 325 mg PO TID 08/10/16 [History] Pantoprazole Sodium [Protonix] 40 mg PO DAILY 08/10/16 [History] Albuterol Neb [Proventil Neb] 2.5 mg IH [id number] PRN #0 inhsol 08/17/16 [Rx] Ipratropium/Albuterol Neb [Duoneb] 3 ml IH [id number] inhsol 08/17/16 [Rx] Losartan [Cozaar] 25 mg PO DAILY tablet 08/17/16 [Rx] Cyanocobalamin (Vitamin B-12) [Vitamin B12] 2,000 mcg PO DAILY 08/22/16 [History ] GuaiFENesin ER [Mucinex] 600 mg PO BID PRN 08/22/16 [History] Metoprolol Succinate 100 mg PO DAILY 08/22/16 [History] Omeprazole Magnesium [Prilosec Otc] 20 mg PO DAILY 08/22/16 [History] Potassium Chloride [K-Tab ER] 20 meq PO DAILY 08/22/16 [History] PredniSONE 40 mg PO TAPER 08/22/16 [History] Benzonatate [Tessalon] 100 mg PO TID PRN #20 capsule 08/29/16 [Rx] LORazepam [Ativan] 1 mg PO 0700,1500,2300 #20 tablet 08/29/16 [Rx] Allergies bupropion [From Wellbutrin] Allergy (Verified 08/31/16 16:38) Hives Hydromorphone [From Dilaudid] Allergy (Verified 08/31/16 16:38) Hives Penicillins Allergy (Verified 08/31/16 16:38) Hives phenytoin [From Dilantin] Allergy (Verified 08/31/16 16:38) Unresponsive acetaminophen [From Percocet] Adverse Reaction (Verified 08/31/16 16:38) Hallucinating Oxycodone [From Percocet] Adverse Reaction (Verified 08/31/16 16:38) Hallucinating - Constitutional Constitutional ROS PAL: frequent falls, no decreased appetite, no fever(s), no weight loss - EENT Eyes: no change in vision Ears, nose, mouth, throat: sore throat, no dysphagia - Cardiovascular Cardiovascular ROS: dyspnea on exertion, pedal edema, no chest pain at rest - Respiratory Respiratory: cough, dyspnea, dyspnea on exertion, wheezing - Gastrointestinal Gastrointestinal: bloating, constipation, no diarrhea, no nausea, no vomiting - Genitourinary Palliative ROS female: no difficulty voiding - Musculoskeletal Musculoskeletal ROS IM: muscle weakness - Integumentary ROS Integumentary: no sores, no wounds - Neurological Neurological ROS: weakness (Global), no confusion, no focal weakness - Psychiatric Psychiatric general PM: anxiety Palliative Care-Exam - Constitutional Vitals: Temp Pulse Resp BP Pulse Ox 97.8 F 96 18 164/98 93 L 09/01/16 16:36 09/01/16 16:36 09/01/16 16:58 09/01/16 16:36 09/01/16 16:58 General appearance: Present: morbidly obese Exam: 80-year-old female patient appearing in mild respiratory distress related to activities, on oxygen via Ventimask. Smiling, interactive in conversation. - Head Head Exam: Present: atraumatic - Eye Eye exam: Present: EOMI Pupils: Present: PERRL - ENT ENT exam: Present: mucous membranes dry - Respiratory Respiratory exam: Present: accessory muscle use, decreased breath sounds, prolonged expiratory phase, wheezes - Cardiovascular Cardiovascular exam: Present: RRR. Absent: tachycardia - GI/Abdominal Exam GI/Abdominal exam: Present: normal bowel sounds, soft. Absent: tenderness - Extremities Exam Extremities exam: Present: pedal edema - Neurological Exam Neurological exam: Present: alert, oriented X3, no focal deficits, strengths equal and symetr throughout - Psychiatric Psychiatric exam: Present: anxious. Absent: agitated - Skin Skin exam: Present: dry, warm Internal Medicine - CN: Reslt - Labs CBC & Chem 7: 09/01/16 05:45 09/01/16 05:45 Labs: Short CBC 09/01/16 Range/Units 05:45 WBC 5.1 (4.3-11.1) K/mcL Hgb 9.4 L (11.5-15.4) g/dL Hct 29.8 L (35.3-44.9) % Plt Count 222 (140-400) K/mcL Neutrophils # 4.4 (1.6-8.9) K/mcL BMP 09/01/16 05:45 Sodium 136 Potassium 4.7 H Chloride 100 Carbon Dioxide 28 BUN 21 H Creatinine 0.81 Glucose 149 H Calcium 8.8 - ABG Interpretation ABG results: ABG ABG pH 7.43 pH Units (7.32-7.45) 08/31/16 16:40 ABG pCO2 49 mmHg (35-45) H 08/31/16 16:40 ABG pO2 59 mmHg (85-104) L 08/31/16 16:40 ABG O2 Saturation 91 % (95-98) L 08/31/16 16:40 PT/INR, D-dimer PT 10.1 Seconds (9.4-12.1) 08/31/16 16:31 Consult Discharge Plan - Plan Referrals: Paulo Kim MD [Primary Care Provider] - Palliative Quality Palliative Quality: Screen for Code Status: Yes, Screen for Goals of Care: Yes, Screen for Pain: Yes, If Pain Regimen Started, Initiate Bowel Regimen: NA, Screen for Nausea/Vomitting: Yes
[2016-09-02] MEDS: Levalbuterol Neb 1.25 MG/3 ML IH SCH ×4 (04:43→23:22)
[2016-09-02 06:22] LABS: Basophils % 0.2 %; Hematocrit 28.2 % (35.3-44.9); Hemoglobin 8.9 g/dL (11.5-15.4); Immature Granulocytes % 3.1 % (0-4); Lymphocytes # 0.3 K/mcL (0.6-4.6); Lymphocytes % 5.4 %; Mean Corpuscular HGB Conc 31.6 g/dL (31.6-35.5); Mean Corpuscular Hemoglobin 26.2 pg (28.0-33.3); Mean Corpuscular Volume 82.9 fL (83.0-100.0); Mean Platelet Volume 10.2 fL (9.4-12.4); Monocytes # 0.2 K/mcL (0.0-1.3); Monocytes % 3.8 %; Neutrophils # 4.8 K/mcL (1.6-8.9); Nucleated Red Blood Cells 0.4 /100 WBC (0); Platelet Count 216 K/mcL (140-400); Red Cell Distribution Width 20.4 % (11.5-14.5); Segmented Neutrophils % 87.5 %
[2016-09-02 06:32] LABS: BUN/Creatinine Ratio 30 (6-26); Blood Urea Nitrogen 26 mg/dL (7-20); Calcium 8.4 mg/dL (8.6-10.8); Carbon Dioxide 27 mEq/L (19-29); Chloride 96 mEq/L (98-109); Glucose 164 mg/dL (70-99); Magnesium 1.6 mg/dL (1.6-2.6); Osmolality,Calculated 284 (280-300); Phosphorous 4.1 mg/dL (2.3-4.7); Potassium 4.5 mEq/L (3.5-4.5); Sodium 133 mEq/L (136-145); eGFR For African Americans > 60 (> 60); eGFR For Non-African Americans > 60 (> 60)
[2016-09-02] MEDS: Sucralfate 1 GM TABLET PO SCH ×4 (06:45→21:50)
[2016-09-02] MEDS: *HR* LORazepam 1 MG TABLET PO SCH ×3 (06:45→23:56)
[2016-09-02] MEDS: *HR* Heparin 5,000 UNIT/ML VIAL SQ SCH ×3 (06:45→21:50)
[2016-09-02] MEDS: Furosemide 20 MG/2 ML VIAL IVP SCH (07:42)
[2016-09-02] MEDS: MethylPREDNISolone 40 MG/ML VIAL IVP SCH ×3 (07:43→23:56)
[2016-09-02] MEDS: Folic Acid 1 MG TABLET PO SCH (07:44)
[2016-09-02] MEDS: Cyanocobalamin (B-12) 1,000 MCG TABLET PO SCH (07:44)
[2016-09-02] MEDS: Metoprolol XL (24 HR) Succ 50 MG TAB.ER.24H PO SCH (07:44)
--- NOTE | 2016-09-02 11:55 | Palliative Progress Note ---
Date of Encounter: 09/02/16 Time of Encounter: 10:00 - Assessment and plan (1) Dyspnea Current Visit: Yes Status: Chronic Assessment and plan: supportive care, BiPAP as tolerated, treatment for respiratory failure per hospitalist. Qualifiers: Dyspnea type: unspecified Qualified Code(s): R06.00 - Dyspnea, unspecified (2) Acute and chronic respiratory failure Current Visit: Yes Status: Acute Assessment and plan: Management per hospitalist. Qualifiers: Respiratory failure complication: hypoxia Qualified Code(s): J96.21 - Acute and chronic respiratory failure with hypoxia (3) Goals of care, counseling/discussion Current Visit: Yes Status: Acute Assessment and plan: Follow-up conversation with Ms. Irby and her son, Nick, regarding goals of care. After taking some time to consider her options, she has elected to change her code status to DNR-Arrest. State DNR form was completed and copies were provided to her son for his records. Ms. Irby would still like to return to [facility] for rehab as tolerated. We did review some basic hospice information per the son-Nick's request. The palliative care team will continue to follow. (4) Anxiety Current Visit: Yes Status: Chronic Assessment and plan: Continue with lorazepam as scheduled. (5) Lung cancer, upper lobe Current Visit: No Status: Chronic Assessment and plan: Following with oncology as an outpatient. Qualifiers: Laterality: right Qualified Code(s): C34.11 - Malignant neoplasm of upper lobe, right bronchus or lung - Time Spent With Patient Total time spent is greater than 50% in coordination of care (as documented) at patient's floor/unit and/or counseling patient: - Subjective Interval history: Mrs. Irby is sitting up in bed with her family at bedside. She reports significant improvement in her breathing overnight. She is tolerating BiPAP well. Her appetite is stable. Ms. Irby does complain of constipation, and would like a laxative today. - Constitutional Vitals: Abnormal lab results RBC 3.40 M/mcL (3.82-4.97) L 09/02/16 05:45 Hgb 8.9 g/dL (11.5-15.4) L 09/02/16 05:45 Hct 28.2 % (35.3-44.9) L 09/02/16 05:45 MCV 82.9 fL (83.0-100.0) L 09/02/16 05:45 MCH 26.2 pg (28.0-33.3) L 09/02/16 05:45 RDW 20.4 % (11.5-14.5) H 09/02/16 05:45 Lymphocytes # 0.3 K/mcL (0.6-4.6) L 09/02/16 05:45 Nucleated RBCs/100 WBC 0.4 /100 WBC (0) H 09/02/16 05:45 APTT 20.2 Seconds (26.0-36.0) L 08/31/16 16:31 ABG pCO2 49 mmHg (35-45) H 08/31/16 16:40 ABG pO2 59 mmHg (85-104) L 08/31/16 16:40 ABG HCO3 32.5 mEQ/L (21-27) H 08/31/16 16:40 ABG Total CO2 34.0 mEq/L (20-26) H 08/31/16 16:40 ABG O2 Saturation 91 % (95-98) L 08/31/16 16:40 ABG Base Excess 7.2 mEq/L (-2.0 to 3.0) H 08/31/16 16:40 Sodium 133 mEq/L (136-145) L 09/02/16 05:45 Chloride 96 mEq/L (98-109) L 09/02/16 05:45 BUN 26 mg/dL (7-20) H 09/02/16 05:45 BUN/Creatinine Ratio 30 (6-26) H 09/02/16 05:45 Glucose 164 mg/dL (70-99) H 09/02/16 05:45 POC Glucose 140 (58-89) H 09/01/16 16:36 Calcium 8.4 mg/dL (8.6-10.8) L 09/02/16 05:45 Urine Blood Small (Negative) H 08/31/16 17:30 Ur Leukocyte Esterase Small (Negative) H 08/31/16 17:30 Urine Microscopic RBC 5-15 per hpf (0-3) H 08/31/16 17:30 Urine Microscopic WBC 5-15 per hpf (0-3) H 08/31/16 17:30 Ur Squamous Epith Cells Many per lpf (None-Few) H 08/31/16 17:30 Ur Culture Indicated? YES (NO) A 08/31/16 17:30 General appearance: Present: cooperative - Eye Eye exam: Present: EOMI - Respiratory Respiratory exam: Present: accessory muscle use, prolonged expiratory phase, wheezes - Cardiovascular Cardiovascular exam: Present: RRR - GI/Abdominal GI/Abdominal exam: Present: normal bowel sounds, soft. Absent: tenderness - Extremities Exam Extremities exam: Present: pedal edema - Neurological Exam Neurological exam: Present: alert, oriented X3, no focal deficits, strengths equal and symetr throughout (global weakness) - Psychiatric Psychiatric exam: Absent: agitated, anxious - Skin Skin exam: Present: dry, warm Palliative Quality Palliative Quality: Screen for Code Status: Yes, Screen for Goals of Care: Yes, Screen for Pain: Yes, If Pain Regimen Started, Initiate Bowel Regimen: NA, Screen for Nausea/Vomitting: Yes - Labs CBC & Chem 7: 09/02/16 05:45 09/02/16 05:45 Labs: Laboratory Results - last 24 hr 09/01/16 09/01/16 09/01/16 08:04 12:06 16:36 WBC RBC Hgb Hct MCV MCH MCHC RDW Plt Count MPV Immature Gran % Seg Neutrophils % Lymphocytes % Monocytes % Eosinophils % Basophils % Neutrophils # Lymphocytes # Monocytes # Eosinophils # Basophils # Nucleated RBCs/100 WBC Sodium Potassium Chloride Carbon Dioxide BUN Creatinine Est GFR ( Amer) Est GFR (Non-Af Amer) BUN/Creatinine Ratio Glucose POC Glucose 116 H 131 H 140 H Calculated Osmolality Calcium Phosphorus Magnesium 09/02/16 09/02/16 05:45 05:45 WBC 5.5 RBC 3.40 L Hgb 8.9 L Hct 28.2 L MCV 82.9 L MCH 26.2 L MCHC 31.6 RDW 20.4 H Plt Count 216 MPV 10.2 Immature Gran % 3.1 Seg Neutrophils % 87.5 Lymphocytes % 5.4 Monocytes % 3.8 Eosinophils % 0.0 Basophils % 0.2 Neutrophils # 4.8 Lymphocytes # 0.3 L Monocytes # 0.2 Eosinophils # 0.0 Basophils # 0.0 Nucleated RBCs/100 WBC 0.4 H Sodium 133 L Potassium 4.5 Chloride 96 L Carbon Dioxide 27 BUN 26 H Creatinine 0.87 Est GFR ( Amer) > 60 Est GFR (Non-Af Amer) > 60 BUN/Creatinine Ratio 30 H Glucose 164 H POC Glucose Calculated Osmolality 284 Calcium 8.4 L Phosphorus 4.1 Magnesium 1.6 - ABG Interpretation ABG results: ABG ABG pH 7.43 pH Units (7.32-7.45) 08/31/16 16:40 ABG pCO2 49 mmHg (35-45) H 08/31/16 16:40 ABG pO2 59 mmHg (85-104) L 08/31/16 16:40 ABG O2 Saturation 91 % (95-98) L 08/31/16 16:40 PT/INR, D-dimer PT 10.1 Seconds (9.4-12.1) 08/31/16 16:31 Consult Discharge Plan - Plan Referrals: Paulo Kim MD [Primary Care Provider] -
--- NOTE | 2016-09-02 12:43 | Internal Med Progress Note ---
Date of Encounter: 09/02/16 Time of Encounter: 12:00 - Assessment and plan (1) Acute and chronic respiratory failure Current Visit: Yes Status: Acute Assessment and plan: Acute exacerbation of chronic respiratory failure likely secondary to noncompliance, as patient did not have BiPAP support available at the rehabilitation facility. Chronic respiratory failure likely secondary to underlying COPD, history of lung cancer status post radiation, radiation pneumonitis, patient may have a component of obstructive sleep apnea, and obesity hypoventilation syndrome. Continue BiPAP support at bedtime O2 supplementation as needed Continue systemic steroids and bronchodilators Continue to monitor O2 saturation, O2 saturation goal 89-92%. Serial ABG as needed Qualifiers: Respiratory failure complication: hypoxia Qualified Code(s): J96.21 - Acute and chronic respiratory failure with hypoxia (2) COPD (chronic obstructive pulmonary disease) Current Visit: Yes Status: Acute Assessment and plan: Plan as listed above Qualifiers: COPD type: unspecified COPD Qualified Code(s): J44.9 - Chronic obstructive pulmonary disease, unspecified (3) Goals of care, counseling/discussion Current Visit: Yes Status: Acute Assessment and plan: Palliative care consultation appreciated Code status changed to [id number] pt would like to go to rehab after discharged f/u PT eval (4) Anemia Current Visit: No Status: Chronic Assessment and plan: Reported to have iron deficiency anemia Continue iron supplementation H&H low but acceptable No active bleeding reported at this time Continue to monitor We will transfuse as needed Qualifiers: Anemia type: unspecified type Qualified Code(s): D64.9 - Anemia, unspecified (5) Anxiety Current Visit: Yes Status: Chronic Assessment and plan: Continue home medications (6) Lung cancer, upper lobe Current Visit: No Status: Chronic Qualifiers: Laterality: right Qualified Code(s): C34.11 - Malignant neoplasm of upper lobe, right bronchus or lung (7) Radiation pneumonitis Current Visit: No Status: Chronic (8) DVT prophylaxis Current Visit: No Status: Acute Assessment and plan: Heparin subcutaneous (9) Hypertension Current Visit: Yes Status: Acute Assessment and plan: BP within acceptable range, continue home medications. Qualifiers: Hypertension type: essential hypertension Qualified Code(s): I10 - Essential (primary) hypertension (10) Morbid obesity Current Visit: Yes Status: Chronic Qualifiers: Obesity type: unspecified obesity type Qualified Code(s): E66.01 - Morbid ( severe) obesity due to excess calories - Subjective Interval history: Patient seen and examined at bedside. Resting comfortably in bed and saturating well on nasal cannula. Patient and family had detailed discussion with the Palliative care team. Code status was changed to [id number]. She wants to return to ECF after this hospitalization. - Constitutional Vitals: Temp Pulse Resp BP Pulse Ox 979 F H 99 20 159/87 98 09/02/16 11:28 09/02/16 11:32 09/02/16 11:28 09/02/16 11:28 09/02/16 11:28 General appearance: Present: cooperative, A&O X 3, morbidly obese, pleasant, no acute distress, answers questions appropriately - Head Head exam: Present: atraumatic, normocephalic - Eye Eye exam: Present: normal appearance, conjuntiva pink, sclera anicteric - Respiratory Respiratory exam: Present: decreased breath sounds. Absent: respiratory distress, wheezes - Cardiovascular Cardiovascular exam: Present: RRR, +S1, +S2. Absent: diastolic murmur, gallop, rubs, systolic murmur - GI/Abdominal GI/Abdominal exam: Present: normal bowel sounds, soft. Absent: distended, tenderness - Extremities Exam Extremities exam: Present: pedal edema, warm, radial pulses palpable and symetrical. Absent: calf tenderness, tenderness - Neurological Exam Neurological exam: Present: alert, oriented X3 - Psychiatric Psychiatric exam: Present: normal affect, normal mood Internal Medicine: Result - Labs CBC & Chem 7: 09/02/16 05:45 09/02/16 05:45 Labs: Short CBC 09/02/16 Range/Units 05:45 WBC 5.5 (4.3-11.1) K/mcL Hgb 8.9 L (11.5-15.4) g/dL Hct 28.2 L (35.3-44.9) % Plt Count 216 (140-400) K/mcL Neutrophils # 4.8 (1.6-8.9) K/mcL BMP 09/02/16 05:45 Sodium 133 L Potassium 4.5 Chloride 96 L Carbon Dioxide 27 BUN 26 H Creatinine 0.87 Glucose 164 H Calcium 8.4 L - ABG Interpretation ABG results: ABG ABG pH 7.43 pH Units (7.32-7.45) 08/31/16 16:40 ABG pCO2 49 mmHg (35-45) H 08/31/16 16:40 ABG pO2 59 mmHg (85-104) L 08/31/16 16:40 ABG O2 Saturation 91 % (95-98) L 08/31/16 16:40 PT/INR, D-dimer PT 10.1 Seconds (9.4-12.1) 08/31/16 16:31 Consult Discharge Plan - Plan Referrals: Paulo Kim MD [Primary Care Provider] -
[2016-09-03] MEDS: Levalbuterol Neb 1.25 MG/3 ML IH SCH ×3 (04:13→16:09)
[2016-09-03 05:18] LABS: Basophils % 0.3 %; Hematocrit 32.2 % (35.3-44.9); Hemoglobin 10.1 g/dL (11.5-15.4); Lymphocytes # 0.6 K/mcL (0.6-4.6); Lymphocytes % 7.4 %; Mean Corpuscular HGB Conc 31.4 g/dL (31.6-35.5); Mean Corpuscular Hemoglobin 26.1 pg (28.0-33.3); Mean Corpuscular Volume 83.2 fL (83.0-100.0); Mean Platelet Volume 9.4 fL (9.4-12.4); Monocytes # 0.4 K/mcL (0.0-1.3); Monocytes % 5.2 %; Neutrophils # 6.7 K/mcL (1.6-8.9); Nucleated Red Blood Cells 0.3 /100 WBC (0); Platelet Count 287 K/mcL (140-400); Red Blood Count 3.87 M/mcL (3.82-4.97); Red Cell Distribution Width 20.6 % (11.5-14.5); Segmented Neutrophils % 84.1 %
[2016-09-03 05:39] LABS: BUN/Creatinine Ratio 37 (6-26); Blood Urea Nitrogen 32 mg/dL (7-20); Calcium 8.6 mg/dL (8.6-10.8); Carbon Dioxide 27 mEq/L (19-29); Chloride 98 mEq/L (98-109); Glucose 158 mg/dL (70-99); Magnesium 2.2 mg/dL (1.6-2.6); Osmolality,Calculated 288 (280-300); Phosphorous 3.9 mg/dL (2.3-4.7); Potassium 4.4 mEq/L (3.5-4.5); Sodium 134 mEq/L (136-145); eGFR For African Americans > 60 (> 60); eGFR For Non-African Americans > 60 (> 60)
[2016-09-03] MEDS: *HR* Heparin 5,000 UNIT/ML VIAL SQ SCH ×2 (06:47→13:03)
[2016-09-03] MEDS: *HR* LORazepam 1 MG TABLET PO SCH ×2 (06:47→15:11)
[2016-09-03] MEDS: Furosemide 20 MG/2 ML VIAL IVP SCH (07:37)
[2016-09-03] MEDS: Folic Acid 1 MG TABLET PO SCH (07:38)
[2016-09-03] MEDS: Metoprolol XL (24 HR) Succ 50 MG TAB.ER.24H PO SCH (07:38)
[2016-09-03] MEDS: Cyanocobalamin (B-12) 1,000 MCG TABLET PO SCH (07:38)
[2016-09-03] MEDS: MethylPREDNISolone 40 MG/ML VIAL IVP SCH ×2 (07:38→15:12)
[2016-09-03] MEDS: Sucralfate 1 GM TABLET PO SCH ×3 (07:38→17:15)
--- NOTE | 2016-09-03 10:57 | Internal Med Progress Note ---
Date of Encounter: 09/03/16 Time of Encounter: 09:00 - Subjective Interval history: No significant event noted overnight. Patient was seen and examined this morning. Patient reports breathing better and thinks she is ready to be discharged back to [facility]. Patient denies fever, chills, nausea, vomiting, diarrhea. - Constitutional Vitals: Temp Pulse Resp BP Pulse Ox 97.7 F 93 20 176/99 94 L 09/03/16 07:35 09/03/16 07:41 09/03/16 07:35 09/03/16 07:35 09/03/16 07:35 General appearance: Present: cooperative, A&O X 3, morbidly obese, pleasant, no acute distress, answers questions appropriately Internal Medicine: Result - Labs CBC & Chem 7: 09/03/16 04:55 09/03/16 04:55 Labs: Short CBC 09/03/16 Range/Units 04:55 WBC 7.9 (4.3-11.1) K/mcL Hgb 10.1 L (11.5-15.4) g/dL Hct 32.2 L (35.3-44.9) % Plt Count 287 (140-400) K/mcL Neutrophils # 6.7 (1.6-8.9) K/mcL BMP 09/03/16 04:55 Sodium 134 L Potassium 4.4 Chloride 98 Carbon Dioxide 27 BUN 32 H Creatinine 0.87 Glucose 158 H Calcium 8.6 - ABG Interpretation ABG results: ABG ABG pH 7.43 pH Units (7.32-7.45) 08/31/16 16:40 ABG pCO2 49 mmHg (35-45) H 08/31/16 16:40 ABG pO2 59 mmHg (85-104) L 08/31/16 16:40 ABG O2 Saturation 91 % (95-98) L 08/31/16 16:40 PT/INR, D-dimer PT 10.1 Seconds (9.4-12.1) 08/31/16 16:31 Consult Discharge Plan - Plan Referrals: Paulo Kim MD [Primary Care Provider] - (DR. PATEL OFFICE WILL CALL PATIENT AT HOME WITH AN APPOINTMENT)
--- NOTE | 2016-09-03 11:04 | Palliative Progress Note ---
Date of Encounter: 09/03/16 Time of Encounter: 10:43 - Assessment and plan (1) Dyspnea Current Visit: Yes Status: Chronic Assessment and plan: supportive care, BiPAP as tolerated, on supplemental oxygen around the clock, activity as tolerated Qualifiers: Dyspnea type: unspecified Qualified Code(s): R06.00 - Dyspnea, unspecified (2) Acute and chronic respiratory failure Current Visit: Yes Status: Acute Assessment and plan: Management per hospitalist. Qualifiers: Respiratory failure complication: hypoxia Qualified Code(s): J96.21 - Acute and chronic respiratory failure with hypoxia (3) Goals of care, counseling/discussion Current Visit: Yes Status: Acute Assessment and plan: Goals of care established. Ms. Irby will return to [facility] for rehab upon discharge. She has as established code status of DNR-Arrest, and state form was completed and placed on chart. manager environmental services following for placement. (4) Anxiety Current Visit: Yes Status: Chronic Assessment and plan: Continue with lorazepam as scheduled. (5) Lung cancer, upper lobe Current Visit: No Status: Chronic Assessment and plan: Following with oncology as an outpatient. Qualifiers: Laterality: right Qualified Code(s): C34.11 - Malignant neoplasm of upper lobe, right bronchus or lung - Time Spent With Patient Total time spent is greater than 50% in coordination of care (as documented) at patient's floor/unit and/or counseling patient: - Subjective Interval history: Mrs. Irby is sitting up in bed with her family at bedside. She reports continued improvement overnight and is ready to go back to [facility]. She reports BM x 3 yesterday. - Constitutional Vitals: Abnormal lab results Hgb 10.1 g/dL (11.5-15.4) L 09/03/16 04:55 Hct 32.2 % (35.3-44.9) L 09/03/16 04:55 MCH 26.1 pg (28.0-33.3) L 09/03/16 04:55 MCHC 31.4 g/dL (31.6-35.5) L 09/03/16 04:55 RDW 20.6 % (11.5-14.5) H 09/03/16 04:55 Nucleated RBCs/100 WBC 0.3 /100 WBC (0) H 09/03/16 04:55 APTT 20.2 Seconds (26.0-36.0) L 08/31/16 16:31 ABG pCO2 49 mmHg (35-45) H 08/31/16 16:40 ABG pO2 59 mmHg (85-104) L 08/31/16 16:40 ABG HCO3 32.5 mEQ/L (21-27) H 08/31/16 16:40 ABG Total CO2 34.0 mEq/L (20-26) H 08/31/16 16:40 ABG O2 Saturation 91 % (95-98) L 08/31/16 16:40 ABG Base Excess 7.2 mEq/L (-2.0 to 3.0) H 08/31/16 16:40 Sodium 134 mEq/L (136-145) L 09/03/16 04:55 BUN 32 mg/dL (7-20) H 09/03/16 04:55 BUN/Creatinine Ratio 37 (6-26) H 09/03/16 04:55 Glucose 158 mg/dL (70-99) H 09/03/16 04:55 POC Glucose 140 (58-89) H 09/01/16 16:36 Urine Blood Small (Negative) H 08/31/16 17:30 Ur Leukocyte Esterase Small (Negative) H 08/31/16 17:30 Urine Microscopic RBC 5-15 per hpf (0-3) H 08/31/16 17:30 Urine Microscopic WBC 5-15 per hpf (0-3) H 08/31/16 17:30 Ur Squamous Epith Cells Many per lpf (None-Few) H 08/31/16 17:30 Ur Culture Indicated? YES (NO) A 08/31/16 17:30 General appearance: Present: cooperative, no acute distress - Respiratory Respiratory exam: Present: wheezes. Absent: accessory muscle use - Cardiovascular Cardiovascular exam: Present: RRR - GI/Abdominal GI/Abdominal exam: Present: normal bowel sounds, soft. Absent: tenderness - Extremities Exam Extremities exam: Present: normal inspection, pedal edema (trace) - Neurological Exam Neurological exam: Present: alert, oriented X3, no focal deficits, strengths equal and symetr throughout - Psychiatric Psychiatric exam: Absent: agitated, anxious Palliative Quality Palliative Quality: Screen for Code Status: Yes, Screen for Goals of Care: Yes, Screen for Pain: Yes, If Pain Regimen Started, Initiate Bowel Regimen: NA, Screen for Nausea/Vomitting: Yes Code Status: 08/31/16 21:07 Resuscitation Status: Active [RES] Routine Comment: Resuscitation Status: DNR-Comfort Care-Arrest - Labs CBC & Chem 7: 09/03/16 04:55 09/03/16 04:55 Labs: Laboratory Results - last 24 hr 09/03/16 09/03/16 04:55 04:55 WBC 7.9 RBC 3.87 Hgb 10.1 L Hct 32.2 L MCV 83.2 MCH 26.1 L MCHC 31.4 L RDW 20.6 H Plt Count 287 MPV 9.4 Immature Gran % 3.0 Seg Neutrophils % 84.1 Lymphocytes % 7.4 Monocytes % 5.2 Eosinophils % 0.0 Basophils % 0.3 Neutrophils # 6.7 Lymphocytes # 0.6 Monocytes # 0.4 Eosinophils # 0.0 Basophils # 0.0 Nucleated RBCs/100 WBC 0.3 H Sodium 134 L Potassium 4.4 Chloride 98 Carbon Dioxide 27 BUN 32 H Creatinine 0.87 Est GFR ( Amer) > 60 Est GFR (Non-Af Amer) > 60 BUN/Creatinine Ratio 37 H Glucose 158 H Calculated Osmolality 288 Calcium 8.6 Phosphorus 3.9 Magnesium 2.2 - ABG Interpretation ABG results: ABG ABG pH 7.43 pH Units (7.32-7.45) 08/31/16 16:40 ABG pCO2 49 mmHg (35-45) H 08/31/16 16:40 ABG pO2 59 mmHg (85-104) L 08/31/16 16:40 ABG O2 Saturation 91 % (95-98) L 08/31/16 16:40 PT/INR, D-dimer PT 10.1 Seconds (9.4-12.1) 08/31/16 16:31 Consult Discharge Plan - Plan Referrals: Paulo Kim MD [Primary Care Provider] - (DR. PATEL OFFICE WILL CALL PATIENT AT HOME WITH AN APPOINTMENT)
--- NOTE | 2016-09-03 13:29 | Discharge Summary ---
<Frida Frank - Last Filed: 09/03/16 13:26> Date of Encounter: 09/03/16 Time of Encounter: 09:00 - Discharge Diagnosis (1) Acute and chronic respiratory failure Priority: Primary Status: Acute Qualifiers: Respiratory failure complication: hypoxia Qualified Code(s): J96.21 - Acute and chronic respiratory failure with hypoxia (2) COPD (chronic obstructive pulmonary disease) Priority: Secondary Status: Acute Qualifiers: COPD type: unspecified COPD Qualified Code(s): J44.9 - Chronic obstructive pulmonary disease, unspecified (3) Lung cancer, upper lobe Priority: Secondary Status: Chronic Qualifiers: Laterality: right Qualified Code(s): C34.11 - Malignant neoplasm of upper lobe, right bronchus or lung (4) Radiation pneumonitis Priority: Secondary Status: Chronic - Discharge Medications Prescriptions: LORazepam [Ativan] 1 mg PO 0700,1500,2300 #10 tablet Losartan [Cozaar] 50 mg PO DAILY #20 tablet PredniSONE 40 mg PO DAILY #10 tablet Home Medications: Sucralfate [Carafate] 1 gm PO QIDAC #120 tablet 03/07/16 [Rx] Citalopram [CeleXA] 20 mg PO DAILY #30 tablet 07/10/16 [Rx] Folic Acid 1 mg PO DAILY #30 tablet 08/03/16 [Rx] Ferrous Sulfate [Iron] 325 mg PO TID 08/10/16 [History] Pantoprazole Sodium [Protonix] 40 mg PO DAILY 08/10/16 [History] Albuterol Neb [Proventil Neb] 2.5 mg IH [id number] PRN #0 inhsol 08/17/16 [Rx] Ipratropium/Albuterol Neb [Duoneb] 3 ml IH [id number] inhsol 08/17/16 [Rx] Cyanocobalamin (Vitamin B-12) [Vitamin B12] 2,000 mcg PO DAILY 08/22/16 [History ] GuaiFENesin ER [Mucinex] 600 mg PO BID PRN 08/22/16 [History] Metoprolol Succinate 100 mg PO DAILY 08/22/16 [History] Omeprazole Magnesium [Prilosec Otc] 20 mg PO DAILY 08/22/16 [History] Potassium Chloride [K-Tab ER] 20 meq PO DAILY 08/22/16 [History] Benzonatate [Tessalon] 100 mg PO TID PRN #20 capsule 08/29/16 [Rx] LORazepam [Ativan] 1 mg PO 0700,1500,2300 #10 tablet 09/03/16 [Rx] Losartan [Cozaar] 50 mg PO DAILY #20 tablet 09/03/16 [Rx] PredniSONE 40 mg PO DAILY #10 tablet 09/03/16 [Rx] Allergies/Adverse Reactions: Allergies bupropion [From Wellbutrin] Allergy (Verified 08/31/16 16:38) Hives Hydromorphone [From Dilaudid] Allergy (Verified 08/31/16 16:38) Hives Penicillins Allergy (Verified 08/31/16 16:38) Hives phenytoin [From Dilantin] Allergy (Verified 08/31/16 16:38) Unresponsive acetaminophen [From Percocet] Adverse Reaction (Verified 08/31/16 16:38) Hallucinating Oxycodone [From Percocet] Adverse Reaction (Verified 08/31/16 16:38) Hallucinating Date of admission: 09/01/16 00:54 Primary care physician: Paulo Kim MD Discharging clinician: Frida Frank Anticipated date of discharge: 09/03/16 - Patient Status Disposition: Transfer SNF Condition: Fair Functional capacity at discharge: uses cane/walker Overall status at discharge: patient is progressing back to baseline - Discharge Instructions Instructions: Lorazepam (By mouth), Prednisone (By mouth), Losartan (By mouth) , Acute Respiratory Distress Syndrome (DC), Chronic Obstructive Pulmonary Disease (DC) Follow Up With: Paulo Kim MD [Primary Care Provider] - (Follow up with her primary care provider (or physician at [facility]) within a week regarding blood pressure management.) Additional Instructions: Please use BiPAP while you are going to sleep, including nap during daytime. Please finish 5-day course of prednisone 40 mg by mouth daily. Please increase your losartan from 25 mg by mouth daily to 50 mg daily. Please follow up with your [facility] regarding your blood pressure management. - Diet and Activity Activity: as per physical therapy, increase activity as tolerated Diet: advance to your usual diet Hospital course: Ms. Irby is a 80 year old female with PMH of right sided non-small cell lung cancer stage IIIa s/p radiation therapy March 2016, radiation pneumonitis, and chronic respiratory failure on home oxygen and BiPAP. Patient was admitted on 08/31 for acute on chronic respiratory failure, likely secondary to not having BiPAP at [facility]. Patient was started on Solu-Medrol along with resuming BiPAP and supplemental oxygen. Patient's respiratory status improves since admission with O2 sat 92% & higher on 4 L NC and reported significant breathing improvement per patient. Patient will be discharged back to [facility] with script of BiPAP along with 5-day course of PO prednisone. Patient was instructed the importance to use BiPAP while sleeping even during a nap and she verbalized her understanding. Will also increase her losartan from 25 mg PO daily to 50 mg PO daily given her blood pressure is noted to be high ( around 160/90). Patient will need to follow up with her primary care provider within a week of discharge for further adjustment on antihypertensive medications. - Time Spent with Patient Total time spent providing and/or coordinating discharge services: Greater than 30 minutes - Constitutional Vitals: Temp Pulse Resp BP Pulse Ox 97.7 F 101 20 150/83 92 L 09/03/16 11:41 09/03/16 11:45 09/03/16 11:41 09/03/16 11:41 09/03/16 11:41 General appearance: Present: cooperative, A&O X 3, morbidly obese, pleasant, no acute distress, answers questions appropriately - Head Head exam: Present: atraumatic, normocephalic - Eye Eye exam: Present: PERRL, conjuntiva pink, sclera anicteric - Neck Neck exam general surgery: Present: supple, trachea midline. Absent: lymphadenopathy - Respiratory Respiratory exam: Present: CTAB. Absent: accessory muscle use, rales, rhonchi, wheezes - Cardiovascular Cardiovascular exam: Present: RRR, +S1, +S2. Absent: diastolic murmur, gallop, rubs, systolic murmur - GI/Abdominal GI/Abdominal exam: Present: normal bowel sounds, soft, no peritoneal signs. Absent: distended, tenderness - Extremities Exam Extremities exam: Present: warm, radial pulses palpable and symetrical. Absent : calf tenderness, cyanotic - Neurological Exam Neurological exam: Present: CN II-XII intact, oriented X3, no focal deficits. Absent: pronater drift, facial droop, speech deficit - Skin Skin exam: Present: dry, intact <Joaquin Mata T - Last Filed: 09/03/16 15:36> Date of admission: 09/01/16 00:54 Primary care physician: Paulo Kim MD Hospital course: Ms. Irby is a 80 year old female - Time Spent with Patient Total time spent providing and/or coordinating discharge services: - Constitutional Vitals: Temp Pulse Resp BP Pulse Ox 97.6 F 108 22 164/92 90 L 09/03/16 15:09 09/03/16 15:15 09/03/16 15:09 09/03/16 15:09 09/03/16 15:09 - Attending Attestation I examined this patient and my medical decision-making was reviewed with the HIGH SCHOOL DIRECTOR/PA/Advanced Practice Nurse/Resident Physician. I agree with the documented findings, disposition and treatment plan as described except to the extent set forth below. 80 Y/O F with acute hypoxemic and hypercapneic respiratory failure secondary to COPDE and non-compliance with BiPAP She has additional diagnoses of DAYANA/ Lung CA s/p radiation pneumonitis, Breast CA s/p mastectomy ,DAYANA/OHS and chronic anemia Seen at bedside with her son She has made remarkable improvement Vital signs are stable, chest is clear HS S1, S2 only, abdomen is benign and she had no pedal edema Labs today unremarkable Safe to discharge back to SNF with emphasis on compliance with BIPAP Rest of details as in resident's documentation
--- NOTE | 2016-09-03 13:48 | Electrocardiograph Report ---
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
--- NOTE | 2016-09-03 14:28 | Physician Discharge Referral ---
ExtendedCare Referral Info Transfer To: [facility] Provider in Charge after Transfer: PCP Institutional Level of Care: Skilled - Diagnosis (1) Acute and chronic respiratory failure Priority: Primary Status: Acute (2) COPD (chronic obstructive pulmonary disease) Priority: Secondary Status: Acute (3) Lung cancer, upper lobe Priority: Secondary Status: Chronic (4) Radiation pneumonitis Priority: Secondary Status: Chronic Prognosis: Fair Aware of Diagnosis: Patient, Family Aware of Prognosis: Patient, Family - Transfer Medications Prescriptions: LORazepam [Ativan] 1 mg PO 0700,1500,2300 #10 tablet Losartan [Cozaar] 50 mg PO DAILY #20 tablet PredniSONE 40 mg PO DAILY #10 tablet Home Medications: Sucralfate [Carafate] 1 gm PO QIDAC #120 tablet 03/07/16 [Rx] Citalopram [CeleXA] 20 mg PO DAILY #30 tablet 07/10/16 [Rx] Folic Acid 1 mg PO DAILY #30 tablet 08/03/16 [Rx] Ferrous Sulfate [Iron] 325 mg PO TID 08/10/16 [History] Pantoprazole Sodium [Protonix] 40 mg PO DAILY 08/10/16 [History] Albuterol Neb [Proventil Neb] 2.5 mg IH [id number] PRN #0 inhsol 08/17/16 [Rx] Ipratropium/Albuterol Neb [Duoneb] 3 ml IH [id number] inhsol 08/17/16 [Rx] Cyanocobalamin (Vitamin B-12) [Vitamin B12] 2,000 mcg PO DAILY 08/22/16 [History ] GuaiFENesin ER [Mucinex] 600 mg PO BID PRN 08/22/16 [History] Metoprolol Succinate 100 mg PO DAILY 08/22/16 [History] Omeprazole Magnesium [Prilosec Otc] 20 mg PO DAILY 08/22/16 [History] Potassium Chloride [K-Tab ER] 20 meq PO DAILY 08/22/16 [History] Benzonatate [Tessalon] 100 mg PO TID PRN #20 capsule 08/29/16 [Rx] LORazepam [Ativan] 1 mg PO 0700,1500,2300 #10 tablet 09/03/16 [Rx] Losartan [Cozaar] 50 mg PO DAILY #20 tablet 09/03/16 [Rx] PredniSONE 40 mg PO DAILY #10 tablet 09/03/16 [Rx] Allergies/Adverse Reactions: Allergies bupropion [From Wellbutrin] Allergy (Verified 08/31/16 16:38) Hives Hydromorphone [From Dilaudid] Allergy (Verified 08/31/16 16:38) Hives Penicillins Allergy (Verified 08/31/16 16:38) Hives phenytoin [From Dilantin] Allergy (Verified 08/31/16 16:38) Unresponsive acetaminophen [From Percocet] Adverse Reaction (Verified 08/31/16 16:38) Hallucinating Oxycodone [From Percocet] Adverse Reaction (Verified 08/31/16 16:38) Hallucinating - Respiratory Orders Other (BiPAP Inspiration 10, Expiration 5, Rate 8, 5L oxygen.) Smoking Cessation: Smoking cessation has been advised. For more information, call the [place] Tobacco Quit Line at 3-254-TEJZ-NOW. - Advance Directives Code Status: DNR-Arrest - Mobility Orders Ambulate (with walker) - Rehabiliation Orders Rehab Potential: Fair Rehab Orders: Evaluation for Physical Therapy, Evaluation for Occupational Therapy - Diet Orders Regular CERTIFICATION: I certify that the transfer of the above named patient to an Extended Care Facility is necessary for the continuing treatment of the diagnosis listed. The above information is true and accurate reflection of patient's current condition. Confidential - Redisclosure prohibited without a patient's written consent.
[2016-09-03 15:10] VITALS: BP 164/92
[2016-09-03] MEDS ORDERED: predniSONE 20 MG TABLET PO SCH (15:15)
== END 2016-09-03 18:19 | DRG 189 ==
LOC: EMEROO 16:13 → 2NNU 16:13 → SUATTDRO 09-01 00:54
PROVIDERS: ADMIT Nurse Practitioner Family; ATTEND Internal Medicine

== ENCOUNTER 2016-09-21 14:26 | Observation (INO) ==
[2016-09-21] MEDS ORDERED: 0.9 % Sodium Chloride 1,000 ML IVC ONE (14:36)
--- NOTE | 2016-09-21 14:38 | Emergency Department Note ---
Disposition Clinical Impression: Dyspnea, Frail elderly, Anemia, Vomiting, Renal insufficiency, Lung cancer, COPD exacerbation, Hypotension, Dehydration Disposition: Admitted As Inpatient Condition: Fair Referrals: Paulo Kim MD [Primary Care Provider] - Forms: ED Satisfaction Letter General Adult HPI - General Chief complaint: ED GI Bleed Stated complaint: Coffee ground emesis Source: patient, EMS Limitations: no limitations - History of Present Illness HPI Narrative: 80-year-old female reports emergency department via EMS from long term. Per the patient report she threw up once and he was told her blood pressure was low so EMS was notified by long term staff. EMS reports that the patient had nonbloody nonblackend emesis noted. The patient denies any chest pain or abdominal pain. She reports she somewhat short of breath has had a cough. There is no history of coughing up blood leg swelling or pain or syncope. The patient had no acute back pain. There is no history of fever. No difficulty moving her arms or legs independently. No confusion or dysarthria No falls or injuries. The patient is not known to be anticoagulated. She reportedly has a history of lung malignancy. The patient states that she does not usually wear oxygen but has had to wear oxygen over the last 3 weeks or so. No other complaints or concerns noted. Pain Scale: 0 - Related Data Home Medications Medication Instructions Recorded Confirmed Ferrous Sulfate [Iron] 325 mg PO TID 08/10/16 09/20/16 Pantoprazole Sodium [Protonix] 40 mg PO DAILY 08/10/16 09/20/16 Cyanocobalamin (Vitamin B-12) 2,000 mcg PO DAILY 08/22/16 09/20/16 [Vitamin B12] GuaiFENesin ER [Mucinex] 600 mg PO BID PRN 08/22/16 09/20/16 Metoprolol Succinate 100 mg PO DAILY 08/22/16 09/20/16 Omeprazole Magnesium [Prilosec Otc] 20 mg PO DAILY 08/22/16 09/20/16 Potassium Chloride [K-Tab ER] 20 meq PO DAILY 08/22/16 09/20/16 Furosemide [Lasix] 20 mg PO DAILY 09/13/16 09/20/16 PredniSONE 20 mg PO DAILY 09/13/16 09/20/16 Previous Rx's Medication Instructions Recorded Sucralfate [Carafate] 1 gm PO QIDAC #120 tablet 09/14/16 Citalopram [CeleXA] 20 mg PO DAILY #30 tablet 07/10/16 Folic Acid 1 mg PO DAILY #30 tablet 08/03/16 Albuterol Neb [Proventil Neb] 2.5 mg IH [id number] PRN #0 inhsol 08/17/16 Ipratropium/Albuterol Neb [Duoneb] 3 ml IH [id number] inhsol 08/17/16 Benzonatate [Tessalon] 100 mg PO TID PRN #20 capsule 08/29/16 LORazepam [Ativan] 1 mg PO 0700,1500,2300 #10 tablet 09/03/16 Losartan [Cozaar] 50 mg PO DAILY #20 tablet 09/03/16 Levofloxacin [Levaquin] 750 mg PO DAILY #7 tablet 09/13/16 Docusate [Colace] 100 mg PO BID #60 capsule 09/20/16 Morphine Immed Rel [Morphine 15 mg PO Q4H PRN #120 tablet 09/20/16 Sulfate] Allergies Allergy/AdvReac Type Severity Reaction Status Date / Time bupropion [From Wellbutrin] Allergy Hives Verified 08/31/16 16:38 Hydromorphone [From Dilaudid] Allergy Hives Verified 08/31/16 16:38 Penicillins Allergy Hives Verified 08/31/16 16:38 phenytoin [From Dilantin] Allergy Unresponsiv Verified 08/31/16 16:38 e acetaminophen [From Percocet] AdvReac Hallucinati Verified 08/31/16 16:38 ng Oxycodone [From Percocet] AdvReac Hallucinati Verified 08/31/16 16:38 ng All systems ED: reviewed and negative except as stated. Past Medical History - Past Medical History Medical history: Reports: cancer, COPD, hypertension, migraine, other Surgical history: Reports: cancer surgery, cholecystectomy, hysterectomy, orthopedic, other Psychiatric history: Reports: anxiety, depression - Social History Smoking Status: Never smoker Smokeless Tobacco Status: No Alcohol use: Reports: none Drug use: Reports: none Physical Exam - General Limitations: no limitations General appearance: alert, in no apparent distress - Head Head exam: atraumatic, normocephalic, normal inspection - Eye Eye exam: Present: normal appearance, PERRL, EOMI - ENT ENT exam: normal exam, normal oropharynx, mucous membranes moist, TM's normal bilaterally, normal external ear exam - Neck Neck exam: Present: normal inspection, full ROM, trachea midline. Absent: meningismus - Chest Chest inspection: Present: symmetric chest wall rise. Absent: tenderness - Respiratory Respiratory exam: Present: prolonged expiratory phase. Absent: respiratory distress, accessory muscle use - Cardiovascular Cardiovascular exam: Present: regular rate, normal rhythm, normal heart sounds - Abdominal Exam Abdominal exam: Present: soft, Non-Tender, normal bowel sounds. Absent: tenderness, distention, guarding, rebound, rigidity, pulsatile mass - Extremities Exam Extremities exam: Present: normal inspection, full ROM, normal capillary refill. Absent: tenderness, pedal edema, joint swelling, calf tenderness - Expanded Lower Extremity Exam Lower leg exam: Absent: Homans' sign Neurovascular/Tendon exam: Absent: motor deficit, sensory deficit, tendon deficit, extremity cold to touch, pallor - Back Exam Back exam: Present: normal inspection, full ROM, CVA tenderness (R). Absent: tenderness, CVA tenderness (L), vertebral tenderness - Neurological Exam Neurological exam: Present: alert, oriented X3, CN II-XII intact. Absent: motor sensory deficit - Psychiatric Psychiatric exam: Present: normal affect, normal mood - Skin Skin exam: Present: warm, dry, intact, normal color. Absent: rash, cyanosis, diaphoresis, erythema, pallor, mottled Course Vital Signs O2 Sat by Pulse Oximetry 96 09/21/16 14:27 Temperature 98.0 F 09/21/16 14:33 Pulse Rate 101 09/21/16 15:27 Respiratory Rate 20 09/21/16 15:27 Blood Pressure 86/73 09/21/16 15:27 O2 Sat by Pulse Oximetry 96 09/21/16 15:27 Oxygen Delivery Oxygen Delivery Room Air Medical Decision Making - Lab Data Result diagrams: 09/21/16 15:03 09/21/16 15:03 Lab Results 09/21/16 09/21/16 09/21/16 Range/Units 15:03 15:03 15:03 WBC 5.8 (4.3-11.1) K/mcL RBC 4.00 (3.82-4.97) M/mcL Hgb 10.8 L D (11.5-15.4) g/dL Hct 36.2 (35.3-44.9) % MCV 90.5 (83.0-100.0) fL MCH 27.0 L (28.0-33.3) pg MCHC 29.8 L (31.6-35.5) g/dL RDW 21.5 H (11.5-14.5) % Plt Count 229 (140-400) K/mcL MPV 8.7 L (9.4-12.4) fL Seg Neutrophils % 83.0 % Band Neutrophils % 3.0 (0-4) % Lymphocytes % 9.0 % Monocytes % 5.0 % Neutrophils # 5.0 (1.6-8.9) K/mcL Lymphocytes # 0.5 L (0.6-4.6) K/mcL Monocytes # 0.3 (0.0-1.3) K/mcL Platelet Estimate Normal (Normal) Immature Plt Fraction 2.0 (1.1-6.1) % Basophilic Stippling 1+ A (Not Present) PT 11.4 (9.4-12.1) Seconds INR 1.1 APTT 33.2 (26.0-36.0) Seconds Sodium 135 L (136-145) mEq/L Potassium 5.6 H (3.5-4.5) mEq/L Chloride 102 (98-109) mEq/L Carbon Dioxide 24 (19-29) mEq/L BUN 25 H (7-20) mg/dL Creatinine 1.75 H (0.57-1.11) mg/dL Est GFR ( Amer) 34 L (> 60) Est GFR (Non-Af Amer) 28 L (> 60) BUN/Creatinine Ratio 14 (6-26) Glucose 114 H (70-99) mg/dL Calculated Osmolality 285 (280-300) Lactic Acid (0.5-2.2) mmol/L Calcium 9.1 (8.6-10.8) mg/dL Total Bilirubin 0.8 (0.2-1.2) mg/dL Direct Bilirubin 0.5 (0.0-0.5) mg/dL Indirect Bilirubin 0.3 (0.0-1.2) mg/dL AST 133 H (5-34) Units/L ALT 124 H (0-55) Units/L Alkaline Phosphatase 67 (38-126) Units/L Troponin I (0-0.03) ng/mL B-Natriuretic Peptide (0-100) pg/mL Serum Total Protein 6.2 (6.0-8.3) g/dL Albumin 3.0 L (3.5-5.0) g/dL Globulin 3.2 (2.4-3.5) g/dL Albumin/Globulin Ratio 0.9 L (1.1-2.2) Lipase 72 (8-78) Units/L 09/21/16 09/21/16 09/21/16 Range/Units 15:03 15:03 15:03 WBC (4.3-11.1) K/mcL RBC (3.82-4.97) M/mcL Hgb (11.5-15.4) g/dL Hct (35.3-44.9) % MCV (83.0-100.0) fL MCH (28.0-33.3) pg MCHC (31.6-35.5) g/dL RDW (11.5-14.5) % Plt Count (140-400) K/mcL MPV (9.4-12.4) fL Seg Neutrophils % % Band Neutrophils % (0-4) % Lymphocytes % % Monocytes % % Neutrophils # (1.6-8.9) K/mcL Lymphocytes # (0.6-4.6) K/mcL Monocytes # (0.0-1.3) K/mcL Platelet Estimate (Normal) Immature Plt Fraction (1.1-6.1) % Basophilic Stippling (Not Present) PT (9.4-12.1) Seconds INR APTT (26.0-36.0) Seconds Sodium (136-145) mEq/L Potassium (3.5-4.5) mEq/L Chloride (98-109) mEq/L Carbon Dioxide (19-29) mEq/L BUN (7-20) mg/dL Creatinine (0.57-1.11) mg/dL Est GFR ( Amer) (> 60) Est GFR (Non-Af Amer) (> 60) BUN/Creatinine Ratio (6-26) Glucose (70-99) mg/dL Calculated Osmolality (280-300) Lactic Acid 1.5 (0.5-2.2) mmol/L Calcium (8.6-10.8) mg/dL Total Bilirubin (0.2-1.2) mg/dL Direct Bilirubin (0.0-0.5) mg/dL Indirect Bilirubin (0.0-1.2) mg/dL AST (5-34) Units/L ALT (0-55) Units/L Alkaline Phosphatase (38-126) Units/L Troponin I 0.01 (0-0.03) ng/mL B-Natriuretic Peptide 74 (0-100) pg/mL Serum Total Protein (6.0-8.3) g/dL Albumin (3.5-5.0) g/dL Globulin (2.4-3.5) g/dL Albumin/Globulin Ratio (1.1-2.2) Lipase (8-78) Units/L
[2016-09-21 15:18] LABS: INR 1.1; Prothrombin Time 11.4 Seconds (9.4-12.1)
[2016-09-21 15:21] LABS: Activated Partial Thrombo Time 33.2 Seconds (26.0-36.0); Hematocrit 36.2 % (35.3-44.9); Hemoglobin 10.8 g/dL (11.5-15.4); Mean Corpuscular HGB Conc 29.8 g/dL (31.6-35.5); Mean Corpuscular Volume 90.5 fL (83.0-100.0); Mean Platelet Volume 8.7 fL (9.4-12.4); Platelet Count 229 K/mcL (140-400); Red Cell Distribution Width 21.5 % (11.5-14.5)
[2016-09-21] MEDS ORDERED: Ipratropium/Albuterol Neb 3 ML ONE (15:21)
[2016-09-21] MEDS ORDERED: Ipratropium/Albuterol Neb 3 ML IH ONE (15:26)
[2016-09-21 15:27] LABS: Albumin/Globulin Ratio 0.9 (1.1-2.2); Bilirubin,Direct 0.5 mg/dL (0.0-0.5); Bilirubin,Indirect 0.3 mg/dL (0.0-1.2); Bilirubin,Total 0.8 mg/dL (0.2-1.2); Calcium 9.1 mg/dL (8.6-10.8); Globulin 3.2 g/dL (2.4-3.5); Potassium 5.6 mEq/L (3.5-4.5); Total Protein 6.2 g/dL (6.0-8.3)
[2016-09-21 15:36] LABS: Basophilic Stippling 1+ (Not Present); Lymphocytes # 0.5 K/mcL (0.6-4.6); Monocytes # 0.3 K/mcL (0.0-1.3); Platelet Estimate Normal (Normal)
--- NOTE | 2016-09-21 16:08 | Emergency Department Note ---
Disposition Clinical Impression: Dyspnea, Frail elderly, Anemia, Vomiting, Renal insufficiency, Lung cancer, COPD exacerbation, Hypotension, Dehydration, Abnormal chest x-ray, Hyperkalemia Disposition: Admitted As Inpatient Condition: Fair Referrals: Paulo Kim MD [Primary Care Provider] - Forms: ED Satisfaction Letter General Adult HPI - General Chief complaint: ED GI Bleed Stated complaint: Coffee ground emesis Source: patient, EMS Limitations: no limitations - History of Present Illness HPI Narrative: 80-year-old female from [facility] via EMS, [facility] reports that the patient had blackened or darkened emesis, and low blood pressure. EMS arrived and report the vomitus was not blackened or bloody. The patient herself complains of vomiting and shortness of breath. She denies any chest pain or abdominal pain or diarrhea there is no history of fever headacheneck stiffness or rash no convulsion or confusion. No coughing of blood leg swelling or pain or fever. The patient has known history of lung malignancy as well as COPD. There is no history of anticoagulation therapy at this time. There is no history of acute back pain and urinary symptoms fall or injury. There is no history of dysarthria, weakness or numbness in the arms or legs, or confusion. EMS notes that the patient has a sinus rhythm without evidence of ischemic changes on their EKG tracing. Pain Scale: 0 - Related Data Home Medications Medication Instructions Recorded Confirmed Ferrous Sulfate [Iron] 325 mg PO TID 08/10/16 09/20/16 Pantoprazole Sodium [Protonix] 40 mg PO DAILY 08/10/16 09/20/16 Cyanocobalamin (Vitamin B-12) 2,000 mcg PO DAILY 08/22/16 09/20/16 [Vitamin B12] GuaiFENesin ER [Mucinex] 600 mg PO BID PRN 08/22/16 09/20/16 Metoprolol Succinate 100 mg PO DAILY 08/22/16 09/20/16 Omeprazole Magnesium [Prilosec Otc] 20 mg PO DAILY 08/22/16 09/20/16 Potassium Chloride [K-Tab ER] 20 meq PO DAILY 08/22/16 09/20/16 Furosemide [Lasix] 20 mg PO DAILY 09/13/16 09/20/16 PredniSONE 20 mg PO DAILY 09/13/16 09/20/16 Previous Rx's Medication Instructions Recorded Sucralfate [Carafate] 1 gm PO QIDAC #120 tablet 03/07/16 Citalopram [CeleXA] 20 mg PO DAILY #30 tablet 07/10/16 Folic Acid 1 mg PO DAILY #30 tablet 08/03/16 Albuterol Neb [Proventil Neb] 2.5 mg IH [id number] PRN #0 inhsol 08/17/16 Ipratropium/Albuterol Neb [Duoneb] 3 ml IH [id number] inhsol 08/17/16 Benzonatate [Tessalon] 100 mg PO TID PRN #20 capsule 08/29/16 LORazepam [Ativan] 1 mg PO 0700,1500,2300 #10 tablet 09/03/16 Losartan [Cozaar] 50 mg PO DAILY #20 tablet 09/03/16 Levofloxacin [Levaquin] 750 mg PO DAILY #7 tablet 09/13/16 Docusate [Colace] 100 mg PO BID #60 capsule 09/20/16 Morphine Immed Rel [Morphine 15 mg PO Q4H PRN #120 tablet 09/20/16 Sulfate] Allergies Allergy/AdvReac Type Severity Reaction Status Date / Time bupropion [From Wellbutrin] Allergy Hives Verified 08/31/16 16:38 Hydromorphone [From Dilaudid] Allergy Hives Verified 08/31/16 16:38 Penicillins Allergy Hives Verified 08/31/16 16:38 phenytoin [From Dilantin] Allergy Unresponsiv Verified 08/31/16 16:38 e acetaminophen [From Percocet] AdvReac Hallucinati Verified 08/31/16 16:38 ng Oxycodone [From Percocet] AdvReac Hallucinati Verified 08/31/16 16:38 ng All systems ED: reviewed and negative except as stated. Past Medical History - Past Medical History Medical history: Reports: cancer, COPD, hypertension, migraine, other Surgical history: Reports: cancer surgery, cholecystectomy, hysterectomy, orthopedic, other Psychiatric history: Reports: anxiety, depression - Social History Smoking Status: Never smoker Smokeless Tobacco Status: No Alcohol use: Reports: none Drug use: Reports: none Physical Exam - General Limitations: no limitations General appearance: alert - Head Head exam: atraumatic, normocephalic, normal inspection - Eye Eye exam: Present: normal appearance, PERRL, EOMI - ENT ENT exam: normal exam, normal oropharynx, mucous membranes moist, TM's normal bilaterally, normal external ear exam - Neck Neck exam: Present: normal inspection, full ROM, trachea midline - Chest Chest inspection: Present: symmetric chest wall rise. Absent: tenderness - Respiratory Respiratory exam: Present: wheezes, prolonged expiratory phase. Absent: respiratory distress, accessory muscle use - Cardiovascular Cardiovascular exam: Present: regular rate, normal rhythm, normal heart sounds - Abdominal Exam Abdominal exam: Present: soft, Non-Tender, normal bowel sounds. Absent: tenderness, distention, guarding, rebound, rigidity - Extremities Exam Extremities exam: Present: normal inspection, full ROM, normal capillary refill. Absent: tenderness, pedal edema, joint swelling, calf tenderness - Expanded Lower Extremity Exam Lower leg exam: Absent: Homans' sign Neurovascular/Tendon exam: Present: normal capillary refill. Absent: motor deficit, sensory deficit, tendon deficit, extremity cold to touch, pallor - Back Exam Back exam: Present: normal inspection, full ROM. Absent: tenderness, CVA tenderness (R), CVA tenderness (L), vertebral tenderness - Neurological Exam Neurological exam: Present: alert, oriented X3, CN II-XII intact. Absent: motor sensory deficit - Psychiatric Psychiatric exam: Present: normal affect, normal mood - Skin Skin exam: Present: warm, dry, intact, normal color. Absent: rash, cyanosis, diaphoresis, erythema, pallor, mottled Course Vital Signs O2 Sat by Pulse Oximetry 96 09/21/16 14:27 Temperature 98.0 F 09/21/16 14:33 Pulse Rate 104 09/21/16 16:09 Respiratory Rate 20 09/21/16 16:09 Blood Pressure 112/68 09/21/16 16:09 O2 Sat by Pulse Oximetry 95 09/21/16 16:09 Oxygen Delivery Oxygen Delivery Nasal Cannula Medical Decision Making - [facility] Narrative Medical decision making narrative: The patient complains of shortness of breath has been wheezing, she is wearing oxygen, she has known history of COPD. The patient has had some vomiting, she was hypotensive on arrival, we noted her creatinine is elevated. EMS documents brownish emesis, they report there was no blackened or bloody emesis. Protonix was given as a precaution. IV fluids were given as well as a breathing treatment. The patient is frail, elderly, has a history of lung disease as well as lung malignancy, appears to have nonbloody emesis, and a presentation consistent with dehydration. Based on her age comorbidities and abnormal vital signs and laboratory testing I thought it would be appropriate to admit the patient to hospital for further evaluation. I discussed case with the hospitalist on-call. - Lab Data Result diagrams: 09/21/16 15:03 09/21/16 15:03 Lab Results 09/21/16 09/21/16 09/21/16 Range/Units 15:03 15:03 15:03 WBC 5.8 (4.3-11.1) K/mcL RBC 4.00 (3.82-4.97) M/mcL Hgb 10.8 L D (11.5-15.4) g/dL Hct 36.2 (35.3-44.9) % MCV 90.5 (83.0-100.0) fL MCH 27.0 L (28.0-33.3) pg MCHC 29.8 L (31.6-35.5) g/dL RDW 21.5 H (11.5-14.5) % Plt Count 229 (140-400) K/mcL MPV 8.7 L (9.4-12.4) fL Seg Neutrophils % 83.0 % Band Neutrophils % 3.0 (0-4) % Lymphocytes % 9.0 % Monocytes % 5.0 % Neutrophils # 5.0 (1.6-8.9) K/mcL Lymphocytes # 0.5 L (0.6-4.6) K/mcL Monocytes # 0.3 (0.0-1.3) K/mcL Platelet Estimate Normal (Normal) Immature Plt Fraction 2.0 (1.1-6.1) % Basophilic Stippling 1+ A (Not Present) PT 11.4 (9.4-12.1) Seconds INR 1.1 APTT 33.2 (26.0-36.0) Seconds Sodium 135 L (136-145) mEq/L Potassium 5.6 H (3.5-4.5) mEq/L Chloride 102 (98-109) mEq/L Carbon Dioxide 24 (19-29) mEq/L BUN 25 H (7-20) mg/dL Creatinine 1.75 H (0.57-1.11) mg/dL Est GFR ( Amer) 34 L (> 60) Est GFR (Non-Af Amer) 28 L (> 60) BUN/Creatinine Ratio 14 (6-26) Glucose 114 H (70-99) mg/dL Calculated Osmolality 285 (280-300) Lactic Acid (0.5-2.2) mmol/L Calcium 9.1 (8.6-10.8) mg/dL Total Bilirubin 0.8 (0.2-1.2) mg/dL Direct Bilirubin 0.5 (0.0-0.5) mg/dL Indirect Bilirubin 0.3 (0.0-1.2) mg/dL AST 133 H (5-34) Units/L ALT 124 H (0-55) Units/L Alkaline Phosphatase 67 (38-126) Units/L Troponin I (0-0.03) ng/mL B-Natriuretic Peptide (0-100) pg/mL Serum Total Protein 6.2 (6.0-8.3) g/dL Albumin 3.0 L (3.5-5.0) g/dL Globulin 3.2 (2.4-3.5) g/dL Albumin/Globulin Ratio 0.9 L (1.1-2.2) Lipase 72 (8-78) Units/L 09/21/16 09/21/16 09/21/16 Range/Units 15:03 15:03 15:03 WBC (4.3-11.1) K/mcL RBC (3.82-4.97) M/mcL Hgb (11.5-15.4) g/dL Hct (35.3-44.9) % MCV (83.0-100.0) fL MCH (28.0-33.3) pg MCHC (31.6-35.5) g/dL RDW (11.5-14.5) % Plt Count (140-400) K/mcL MPV (9.4-12.4) fL Seg Neutrophils % % Band Neutrophils % (0-4) % Lymphocytes % % Monocytes % % Neutrophils # (1.6-8.9) K/mcL Lymphocytes # (0.6-4.6) K/mcL Monocytes # (0.0-1.3) K/mcL Platelet Estimate (Normal) Immature Plt Fraction (1.1-6.1) % Basophilic Stippling (Not Present) PT (9.4-12.1) Seconds INR APTT (26.0-36.0) Seconds Sodium (136-145) mEq/L Potassium (3.5-4.5) mEq/L Chloride (98-109) mEq/L Carbon Dioxide (19-29) mEq/L BUN (7-20) mg/dL Creatinine (0.57-1.11) mg/dL Est GFR ( Amer) (> 60) Est GFR (Non-Af Amer) (> 60) BUN/Creatinine Ratio (6-26) Glucose (70-99) mg/dL Calculated Osmolality (280-300) Lactic Acid 1.5 (0.5-2.2) mmol/L Calcium (8.6-10.8) mg/dL Total Bilirubin (0.2-1.2) mg/dL Direct Bilirubin (0.0-0.5) mg/dL Indirect Bilirubin (0.0-1.2) mg/dL AST (5-34) Units/L ALT (0-55) Units/L Alkaline Phosphatase (38-126) Units/L Troponin I 0.01 (0-0.03) ng/mL B-Natriuretic Peptide 74 (0-100) pg/mL Serum Total Protein (6.0-8.3) g/dL Albumin (3.5-5.0) g/dL Globulin (2.4-3.5) g/dL Albumin/Globulin Ratio (1.1-2.2) Lipase (8-78) Units/L - EKG Data EKG #1 EKG attestation: Yes I reviewed and interpreted this EKG. EKG shows normal: sinus rhythm Rate: normal Rhythm: NSR Interpretation: no acute changes
[2016-09-21] MEDS ORDERED: Pantoprazole 40 MG VIAL IVP ONE (16:21)
[2016-09-21] MEDS ORDERED: Calcium Gluconate 1,000 MG in D5% in Water 100 ML IVPB ONE (17:40)
--- NOTE | 2016-09-21 18:07 | Internal Med History&Physical ---
Date of Encounter: 09/21/16 Time of Encounter: 18:05 Assessment and Plan (1) MIC (acute kidney injury) Current visit: Yes Status: Acute Son is aware of renal failure hyperkalemia and that can be life-threatening he does not want an IV line he does not want any treatment. (2) COPD (chronic obstructive pulmonary disease) Current visit: No Status: Acute Son wants only comfort measures will start treatment for that. Qualifiers: COPD type: unspecified COPD Qualified Code(s): J44.9 - Chronic obstructive pulmonary disease, unspecified (3) Lung cancer Current visit: Yes Status: Acute Comfort care. She will be transitioned to hospice within a few days. Qualifiers: Qualified Code(s): C34.90 - Malignant neoplasm of unspecified part of unspecified bronchus or lung (4) Coffee ground emesis Current visit: Yes Status: Acute She may have aspirated during that. She appears to be more short of breath. Again some does not want any treatment measures or interventions. Will start comfort measures Internal Medicine - H&P: HPI Chief complaint: coffe ground emesis History of present illness: Ms. Irby is a 80 year old female with history of long cancer, COPD on 4 L of oxygen with recent frequent hospitalizations and son holds a power of tax attorney have decided to proceed with hospice care. She is scheduled to start hospice within a few days. [facility] so she was brought to the emergency room and admitted. Son showed up after admission mentioned that he does not want any treatment for his mom does not want any lapse to be drawn etc. He actually wanted the patient to be transferred back to [facility]. However there unable to take her back because web content & social media manager had left. She will be admitted overnight to further arrangements are made in the morning. Patient is currently lethargic. Someone mentioned that she started morphine yesterday prescribed by the palliative care team. Past Med Surg Social Fam HX - Past Medical History Medical history: cancer, COPD, hypertension, migraine, other Psychiatric history: anxiety, depression - Past Surgical History Surgical History: cancer surgery, cholecystectomy, hysterectomy, orthopedic, other - Social History Smoking Status: Never smoker Smokeless Tobacco Status: No Alcohol use: none Drug use: none - Family History Father Living Status: Hx Family Cardiac Disorders: Yes Mother Living Status: Hx Family Cancer: Yes (Ovarian) Internal Medicine - H&P: Meds Sucralfate [Carafate] 1 gm PO QIDAC #120 tablet 03/07/16 [Rx] Citalopram [CeleXA] 20 mg PO DAILY #30 tablet 07/10/16 [Rx] Folic Acid 1 mg PO DAILY #30 tablet 08/03/16 [Rx] Ferrous Sulfate [Iron] 325 mg PO TID 08/10/16 [History] Pantoprazole Sodium [Protonix] 40 mg PO DAILY 08/10/16 [History] Albuterol Neb [Proventil Neb] 2.5 mg IH [id number] PRN #0 inhsol 08/17/16 [Rx] Ipratropium/Albuterol Neb [Duoneb] 3 ml IH [id number] inhsol 08/17/16 [Rx] Cyanocobalamin (Vitamin B-12) [Vitamin B12] 2,000 mcg PO DAILY 08/22/16 [History ] GuaiFENesin ER [Mucinex] 600 mg PO BID PRN 08/22/16 [History] Metoprolol Succinate 100 mg PO DAILY 08/22/16 [History] Omeprazole Magnesium [Prilosec Otc] 20 mg PO DAILY 08/22/16 [History] Potassium Chloride [K-Tab ER] 20 meq PO DAILY 08/22/16 [History] Benzonatate [Tessalon] 100 mg PO TID PRN #20 capsule 08/29/16 [Rx] Losartan [Cozaar] 50 mg PO DAILY #20 tablet 09/03/16 [Rx] Furosemide [Lasix] 20 mg PO DAILY 09/13/16 [History] PredniSONE 10 mg PO DAILY 09/13/16 [History] Docusate [Colace] 100 mg PO BID #60 capsule 09/20/16 [Rx] Ibuprofen [Motrin] 400 mg PO TID 09/21/16 [History] LORazepam [Ativan] 1 mg PO Q6H 09/21/16 [History] Menthol [Biofreeze] 1 appl TP Q6H 09/21/16 [History] Morphine Immed Rel [Morphine Sulfate] 30 mg PO Q4H PRN 09/21/16 [History] Allergies bupropion [From Wellbutrin] Allergy (Verified 08/31/16 16:38) Hives Hydromorphone [From Dilaudid] Allergy (Verified 08/31/16 16:38) Hives Penicillins Allergy (Verified 08/31/16 16:38) Hives phenytoin [From Dilantin] Allergy (Verified 08/31/16 16:38) Unresponsive acetaminophen [From Percocet] Adverse Reaction (Verified 08/31/16 16:38) Hallucinating Oxycodone [From Percocet] Adverse Reaction (Verified 08/31/16 16:38) Hallucinating All Systems PM: A 10-system review of systems was performed and is negative for pertinent findings except as documented above in the HPI. Review of systems: Unobtainable given patient mental status - Constitutional Vitals: Temp Pulse Resp BP Pulse Ox 98.0 F 104 18 96/65 95 09/21/16 14:33 09/21/16 16:09 09/21/16 17:06 09/21/16 17:06 09/21/16 16:09 Exam: General patient is lethargic mild respiratory distress rest of exam not performed Internal Med - H&P Results - Labs CBC & Chem 7: 09/21/16 15:03 09/21/16 15:03
[2016-09-21] MEDS ORDERED: *HR* Morphine Immed Rel 30 MG TABLET PO PRN (18:13)
[2016-09-21] MEDS ORDERED: *HR* LORazepam 1 MG TABLET PO PRN (18:13)
[2016-09-21] MEDS ORDERED: Benzonatate 100 MG CAPSULE PO PRN (18:13)
[2016-09-21] MEDS ORDERED: Albuterol 2.5 MG/3 ML NEBULIZER IH PRN (18:13)
[2016-09-21] MEDS ORDERED: Ondansetron 4 MG/2 ML VIAL IVP PRN (19:30)
[2016-09-21] MEDS: Ipratropium/Albuterol Neb 3 ML IH SCH ×2 (20:09→23:05)
[2016-09-21] MEDS: Sucralfate 1 GM TABLET PO SCH (22:30)
[2016-09-22] MEDS: Ipratropium/Albuterol Neb 3 ML IH SCH ×3 (04:22→11:13)
[2016-09-22] MEDS: Sucralfate 1 GM TABLET PO SCH ×2 (08:05→11:30)
[2016-09-22] MEDS ORDERED: Furosemide 20 MG TABLET PO SCH (09:00)
[2016-09-22] MEDS ORDERED: predniSONE 20 MG TABLET PO SCH (09:00)
--- NOTE | 2016-09-22 11:20 | Discharge Summary ---
Date of Encounter: 09/22/16 Time of Encounter: 11:18 - Discharge Diagnosis (1) Renal insufficiency Priority: Primary Status: Acute (2) Lung cancer Priority: Primary Status: Acute Qualifiers: Lung location: unspecified part of lung Qualified Code(s): C34.90 - Malignant neoplasm of unspecified part of unspecified bronchus or lung (3) MIC (acute kidney injury) Priority: Primary Status: Acute (4) Hypertension Priority: Secondary Status: Chronic Qualifiers: Hypertension type: essential hypertension Qualified Code(s): I10 - Essential (primary) hypertension - Discharge Medications Prescriptions: LORazepam [Ativan] 1 mg PO Q6H #30 tablet Morphine Immed Rel [Morphine Sulfate] 15 mg PO Q4H PRN #60 tablet PRN Reason: Pain Home Medications: Sucralfate [Carafate] 1 gm PO QIDAC #120 tablet 03/07/16 [Rx] Citalopram [CeleXA] 20 mg PO DAILY #30 tablet 07/10/16 [Rx] Folic Acid 1 mg PO DAILY #30 tablet 08/03/16 [Rx] Ferrous Sulfate [Iron] 325 mg PO TID 08/10/16 [History] Pantoprazole Sodium [Protonix] 40 mg PO DAILY 08/10/16 [History] Albuterol Neb [Proventil Neb] 2.5 mg IH [id number] PRN #0 inhsol 08/17/16 [Rx] Ipratropium/Albuterol Neb [Duoneb] 3 ml IH [id number] inhsol 08/17/16 [Rx] Cyanocobalamin (Vitamin B-12) [Vitamin B12] 2,000 mcg PO DAILY 08/22/16 [History ] GuaiFENesin ER [Mucinex] 600 mg PO BID PRN 08/22/16 [History] Metoprolol Succinate 100 mg PO DAILY 08/22/16 [History] Omeprazole Magnesium [Prilosec Otc] 20 mg PO DAILY 08/22/16 [History] Potassium Chloride [K-Tab ER] 20 meq PO DAILY 08/22/16 [History] Benzonatate [Tessalon] 100 mg PO TID PRN #20 capsule 08/29/16 [Rx] Losartan [Cozaar] 50 mg PO DAILY #20 tablet 09/03/16 [Rx] Furosemide [Lasix] 20 mg PO DAILY 09/13/16 [History] PredniSONE 10 mg PO DAILY 09/13/16 [History] Docusate [Colace] 100 mg PO BID #60 capsule 09/20/16 [Rx] Ibuprofen [Motrin] 400 mg PO TID 09/21/16 [History] Menthol [Biofreeze] 1 appl TP Q6H 09/21/16 [History] LORazepam [Ativan] 1 mg PO Q6H #30 tablet 09/22/16 [Rx] Morphine Immed Rel [Morphine Sulfate] 15 mg PO Q4H PRN #60 tablet 09/22/16 [Rx] Allergies/Adverse Reactions: Allergies bupropion [From Wellbutrin] Allergy (Verified 08/31/16 16:38) Hives Hydromorphone [From Dilaudid] Allergy (Verified 08/31/16 16:38) Hives Penicillins Allergy (Verified 08/31/16 16:38) Hives phenytoin [From Dilantin] Allergy (Verified 08/31/16 16:38) Unresponsive acetaminophen [From Percocet] Adverse Reaction (Verified 08/31/16 16:38) Hallucinating Oxycodone [From Percocet] Adverse Reaction (Verified 08/31/16 16:38) Hallucinating Date of admission: 09/21/16 16:51 Primary care physician: Paulo Kim MD Discharging clinician: Macyol Cowan Anticipated date of discharge: 09/22/16 - Patient Status Disposition: Transfer SNF Condition: Fair Functional capacity at discharge: uses cane/walker Overall status at discharge: patient is back to baseline - Discharge Instructions Follow Up With: Paulo Kim MD [Primary Care Provider] - (ecf) - Diet and Activity Activity: as per physical therapy Diet: advance to your usual diet Interval History: Ms. Irby is a 80 year old female with history of long cancer, COPD on 4 L of oxygen with recent frequent hospitalizations and son holds a power of family law attorney have decided to proceed with hospice care. She is scheduled to start hospice within a few days. Patient started having coffee ground emesis in the shelter so she was brought to the emergency room and admitted. Son showed up after admission mentioned that he does not want any treatment for his mom does not want any labs drawn etc. He actually wants the patient to be transferred back to [facility]. However there unable to take her back because health and social care teacher had left. She was admitted overnight and is being dc today back to [facility] in stable condition. as per the son's request ,I will decrease the dose of morphine to 15 mg as he said that made her confused. Hospital course: Ms. Irby is a 80 year old female Time spent discussing smoking cessation with patient: more than 10 minutes - Time Spent with Patient Total time spent providing and/or coordinating discharge services: Greater than 30 minutes - Constitutional Vitals: Temp Pulse Resp BP Pulse Ox 99.1 F 109 22 108/66 93 09/22/16 07:35 09/22/16 07:35 09/22/16 11:14 09/22/16 07:35 09/22/16 11:14 General appearance: Present: A&O X 3, no acute distress Exam: - Head Head exam: atraumatic, normocephalic, normal inspection - Eye Eye exam: Present: normal appearance, PERRL, EOMI - ENT ENT exam: normal exam, normal oropharynx, mucous membranes moist, TM's normal bilaterally, normal external ear exam - Neck Neck exam: Present: normal inspection, full ROM, trachea midline - Chest Chest inspection: Present: symmetric chest wall rise. Absent: tenderness - Respiratory Respiratory exam: Present: mild wheezing. Absent: respiratory distress, accessory muscle use - Cardiovascular Cardiovascular exam: Present: regular rate, normal rhythm, normal heart sounds - Abdominal Exam Abdominal exam: Present: soft, Non-Tender, normal bowel sounds. Absent: tenderness, distention, guarding, rebound, rigidity - Extremities Exam Extremities exam: Present: normal inspection, full ROM, normal capillary refill. Absent: tenderness, pedal edema, joint swelling, calf tenderness - Back Exam Back exam: Present: normal inspection, full ROM. Absent: tenderness, CVA tenderness (R), CVA tenderness (L), vertebral tenderness - Neurological Exam Neurological exam: Present: alert, oriented X3, CN II-XII intact. Absent: motor sensory deficit - Psychiatric Psychiatric exam: Present: normal affect, normal mood - Skin Skin exam: Present: warm, dry, intact, normal color. Absent: rash, cyanosis, diaphoresis, erythema, pallor, mottled
--- NOTE | 2016-09-22 11:21 | Physician Discharge Referral ---
ExtendedCare Referral Info Transfer To: SNF Provider in Charge: richardson curtis Institutional Level of Care: Intermediate - MR - Diagnosis (1) Renal insufficiency Status: Acute (2) Lung cancer Status: Acute (3) MIC (acute kidney injury) Status: Acute (4) Hypertension Status: Chronic - Transfer Medications Home Medications: Sucralfate [Carafate] 1 gm PO QIDAC #120 tablet 03/07/16 [Rx] Citalopram [CeleXA] 20 mg PO DAILY #30 tablet 07/10/16 [Rx] Folic Acid 1 mg PO DAILY #30 tablet 08/03/16 [Rx] Ferrous Sulfate [Iron] 325 mg PO TID 08/10/16 [History] Pantoprazole Sodium [Protonix] 40 mg PO DAILY 08/10/16 [History] Albuterol Neb [Proventil Neb] 2.5 mg IH [id number] PRN #0 inhsol 08/17/16 [Rx] Ipratropium/Albuterol Neb [Duoneb] 3 ml IH [id number] inhsol 08/17/16 [Rx] Cyanocobalamin (Vitamin B-12) [Vitamin B12] 2,000 mcg PO DAILY 08/22/16 [History ] GuaiFENesin ER [Mucinex] 600 mg PO BID PRN 08/22/16 [History] Metoprolol Succinate 100 mg PO DAILY 08/22/16 [History] Omeprazole Magnesium [Prilosec Otc] 20 mg PO DAILY 08/22/16 [History] Potassium Chloride [K-Tab ER] 20 meq PO DAILY 08/22/16 [History] Benzonatate [Tessalon] 100 mg PO TID PRN #20 capsule 08/29/16 [Rx] Losartan [Cozaar] 50 mg PO DAILY #20 tablet 09/03/16 [Rx] Furosemide [Lasix] 20 mg PO DAILY 09/13/16 [History] PredniSONE 10 mg PO DAILY 09/13/16 [History] Docusate [Colace] 100 mg PO BID #60 capsule 09/20/16 [Rx] Ibuprofen [Motrin] 400 mg PO TID 09/21/16 [History] LORazepam [Ativan] 1 mg PO Q6H 09/21/16 [History] Menthol [Biofreeze] 1 appl TP Q6H 09/21/16 [History] Morphine Immed Rel [Morphine Sulfate] 30 mg PO Q4H PRN 09/21/16 [History] Allergies/Adverse Reactions: Allergies bupropion [From Wellbutrin] Allergy (Verified 08/31/16 16:38) Hives Hydromorphone [From Dilaudid] Allergy (Verified 08/31/16 16:38) Hives Penicillins Allergy (Verified 08/31/16 16:38) Hives phenytoin [From Dilantin] Allergy (Verified 08/31/16 16:38) Unresponsive acetaminophen [From Percocet] Adverse Reaction (Verified 08/31/16 16:38) Hallucinating Oxycodone [From Percocet] Adverse Reaction (Verified 08/31/16 16:38) Hallucinating - Respiratory Orders Smoking Cessation: Smoking cessation has been advised. For more information, call the [place] Tobacco Quit Line at 3-231-RTAX-NOW. - Advance Directives Code Status: DNR-Comfort Care - Mobility Orders Chair - Rehabiliation Orders Rehab Potential: Poor Rehab Orders: Evaluation for Physical Therapy, Evaluation for Occupational Therapy - Diet Orders Regular CERTIFICATION: I certify that the transfer of the above named patient to an Extended Care Facility is necessary for the continuing treatment of the diagnosis listed. The above information is true and accurate reflection of patient's current condition. Confidential - Redisclosure prohibited without a patient's written consent.
[2016-09-22 12:20] VITALS: BP 114/65
--- NOTE | 2016-09-23 10:03 | Electrocardiograph Report ---
[place] [id number] Test Date: 2016-09-21 Pat Name: Sol Irby Department: 103 Room: 2A Gender: F Child Guidance Counselor: [facility] : 1935 Requested By: Edenilson Gray Order Number: [id number] Reading MD: Arnav Ritter MD Measurements Intervals [place] Rate: 107 P: 27 RI: 140 QRS: -45 QRSD: 95 T: 35 QT: 316 QTc: 379 Interpretive Statements SINUS TACHYCARDIA LEFT ANTERIOR FASCICULAR BLOCK Electronically Signed On 09-23-2016 10:01:49 EDT by Arnav Ritter MD
== END 2016-09-22 13:04 ==
LOC: EMEROO 14:26 → 2ANU 14:26
PROVIDERS: ADMIT Internal Medicine; ATTEND Internal Medicine Endocrinology, Diabetes & Metabolism